=== PATIENT | male | born 1985 | race Caucasian/White ===

== ENCOUNTER 2018-09-20 18:36 | Emergency (ER) | payer MEDICARE, MEDICAID ==
[~2018-09-20] VITALS: Ht 188 cm; Wt 225.8 kg
[~2018-09-20 18:36] MED LIST: ASEN10TA SL; BACL20TA PO; CETI10CA PO; CHOL10002 PO; FLO0.4C PO; HYDR-3964 PO; LACT1CAP73 PO; LEVO100T PO; MAGN500C16 PO; OMEP20CA10 PO; SERT100T PO; TEST5GEL2 TP; TOP100T PO
[2018-09-20 19:03] LABS: COLOR,URINE YELLOW (Yellow); GLUCOSE, URINE NEGATIVE (Neg); KETONES,URINE NEGATIVE (Neg); LEUKOCYTE ESTERASE ,URINE TRACE (Neg); NITRITES, URINE NEGATIVE (Neg); OCCULT BLOOD,URINE NEGATIVE (Neg); PH,URINE 5.5 (4.8-8.0); PROTEIN,URINE NEGATIVE (Neg); UROBILINOGEN,URINE 0.2 E.U/dL (0.2-1.0)
[2018-09-20] MEDS ORDERED: ondansetron 4mg rapidly disintigrating tab PO ONE (19:05)
[2018-09-20 19:06] LABS: BASOPHILS % (AUTO) 0.2 % (0-1); EOSINOPHILS # (AUTO) 0.4 X10'3 (0-0.9); EOSINOPHILS % (AUTO) 2.5 % (0-6); HEMATOCRIT 43.5 % (42.0-52.0); HEMOGLOBIN 14.2 g/dl (14.0-17.9); LYMPHOCYTES # (AUTO) 3.6 X10'3 (1.1-4.8); LYMPHOCYTES % (AUTO) 24.4 % (21-51); MEAN CORPUSCULAR HEMOGLOBIN 26.1 PG (27.0-31.0); MEAN CORPUSCULAR HGB CONC 32.5 % (33.0-36.5); MEAN CORPUSCULAR VOLUME 80.2 FL (78-98); MEAN PLATELET VOLUME 6.7 FL (7.4-10.4); MONOCYTES # (AUTO) 0.8 X10'3 (0-0.9); MONOCYTES % (AUTO) 5.7 % (2-12); NEUTROPHILS # (AUTO) 9.9 X10'3 (1.8-7.7); NEUTROPHILS % (AUTO) 67.2 % (42-75); PLATELET COUNT 340 X10'3 (140-440); RED BLOOD COUNT 5.43 X10'6 (4.70-6.10); RED CELL DISTRIBUTION WIDTH 15.7 % (11.5-14.5); WHITE BLOOD COUNT 14.7 X10'3 (4.5-11.0)
[2018-09-20 19:09] LABS: UA COLLECTION TYPE CLN CATCH MIDSTREAM
[2018-09-20 19:10] LABS: CLARITY,URINE SLIGHTLY CLOUDY (Clear)
[2018-09-20 19:12] LABS: BACTERIA,URINE FEW /HPF (Neg); MUCUS STRANDS MODERATE /LPF (Neg); RBC,URINE NONE SEEN /HPF (0-2)
[2018-09-20 19:15] LABS: SQUAMOUS EPITHELIAL CELL,UR MANY /LPF (FEW)
[2018-09-20 19:31] LABS: ALANINE AMINOTRANSFERASE 35 U/L (12-78); ALBUMIN 3.6 G/DL (3.4-5.0); ALBUMIN/GLOBULIN RATIO 0.8 (1.1-1.5); ALKALINE PHOSPHATASE 94 IU/L (46-116); ANION GAP 13 (8-16); ASPARTATE AMINO TRANSFERASE 16 U/L (10-37); BILIRUBIN,TOTAL 0.3 MG/DL (0.1-1.0); BLOOD UREA NITROGEN 20 MG/DL (7-18); BUN/CREATININE RATIO 13.6 (5.4-32.0); CALCIUM 9.5 MG/DL (8.5-10.1); CHLORIDE 104 MMOL/L (99-107); CREATININE 1.47 MG/DL (0.60-1.10); GLUCOSE 94 MG/DL (70-104); POTASSIUM 3.9 MMOL/L (3.5-5.1); SODIUM 139 MMOL/L (135-145); TOTAL CARBON DIOXIDE 22.1 MMOL/L (24-32); TOTAL PROTEIN 8.3 G/DL (6.4-8.2); eGFR 55 ML/MIN
[2018-09-20] MEDS ORDERED: normal saline 1000ML IV soln IVB ONE (20:50)
[2018-09-20] MEDS ORDERED: ondansetron/PF 4mg/2ml inj IV ONE (20:50)
[2018-09-20] MEDS: HYDROmorphone inj. 0.5 MG/0.5 ML DISP.SYRIN IV PRN ×2 (21:20→22:18)
[2018-09-20] MEDS ORDERED: ONDA4TAB6 PO (21:39)
[2018-09-20] MEDS ORDERED: HYDR-3965 PO (21:39)
[2018-09-20] MEDS ORDERED: VAL5T PO (21:54)
[2018-09-20] MEDS ORDERED: BACL10TA PO (21:54)
--- NOTE | 2018-09-20 21:54 | NUR ---
Patient is with MD at this time, he was given Zofran, Dilaudid and Normal Saline. I will continue to monitor. His mother and caregiver are at the bedside.
[2018-09-20 22:43] VITALS: BP 129/66
== END 2018-09-20 22:47 | disposition home or self-care (01) ==
LOC: ER 18:37
DX: N39.0 Urinary tract infection, site not specified (principal); R10.9 Unspecified abdominal pain; F32.9 Major depressive disorder, single episode, unspecified; K21.9 Gastro-esophageal reflux disease without esophagitis; N18.9 Chronic kidney disease, unspecified; Z88.8 Allergy status to other drugs, medicaments and biological substances; Z87.440 Personal history of urinary (tract) infections
CPT/HCPCS: 36415; 80053; 81001; 85025; 96374; 96375; 96376; 99283; J1170; J2405; J7030

== ENCOUNTER 2019-08-27 15:07 | Emergency (ER) | payer MEDICARE, MEDICAID ==
[~2019-08-27] VITALS: Ht 185.4 cm; Wt 242.0 kg
[~2019-08-27 15:07] MED LIST changes: +BACL10TA PO; +OMEP-297 PO; -OMEP20CA10 PO; +ONDA4TAB6 PO
[2019-08-27 16:03] LABS: BASOPHILS # (AUTO) 0.1 X10'3 (0-0.2); BASOPHILS % (AUTO) 0.6 % (0-1); EOSINOPHILS # (AUTO) 0.1 X10'3 (0-0.9); EOSINOPHILS % (AUTO) 1.1 % (0-6); HEMATOCRIT 43.5 % (42.0-52.0); HEMOGLOBIN 14.4 g/dl (14.0-17.9); LYMPHOCYTES % (AUTO) 22.6 % (21-51); MEAN CORPUSCULAR HEMOGLOBIN 26.3 PG (27.0-31.0); MEAN CORPUSCULAR VOLUME 79.5 FL (78-98); MEAN PLATELET VOLUME 6.7 FL (7.4-10.4); MONOCYTES # (AUTO) 0.8 X10'3 (0-0.9); MONOCYTES % (AUTO) 6.1 % (2-12); NEUTROPHILS # (AUTO) 9.2 X10'3 (1.8-7.7); NEUTROPHILS % (AUTO) 69.6 % (42-75); PLATELET COUNT 306 X10'3 (140-440); RED BLOOD COUNT 5.47 X10'6 (4.70-6.10); RED CELL DISTRIBUTION WIDTH 16.6 % (11.5-14.5); WHITE BLOOD COUNT 13.2 X10'3 (4.5-11.0)
[2019-08-27 16:15] LABS: CLARITY,URINE CLEAR (Clear); COLOR,URINE YELLOW (Yellow); GLUCOSE, URINE NEGATIVE (Neg); KETONES,URINE NEGATIVE (Neg); LEUKOCYTE ESTERASE ,URINE NEGATIVE (Neg); NITRITES, URINE POSITIVE (Neg); OCCULT BLOOD,URINE NEGATIVE (Neg); PH,URINE 5.5 (4.8-8.0); PROTEIN,URINE NEGATIVE (Neg); UROBILINOGEN,URINE 0.2 E.U/dL (0.2-1.0)
[2019-08-27 16:17] LABS: ALANINE AMINOTRANSFERASE 52 U/L (12-78); ALBUMIN 3.5 G/DL (3.4-5.0); ALBUMIN/GLOBULIN RATIO 0.9 (1.1-1.5); ALKALINE PHOSPHATASE 90 IU/L (46-116); AMYLASE 32 U/L (25-115); ANION GAP 9 (8-16); ASPARTATE AMINO TRANSFERASE 22 U/L (10-37); BILIRUBIN,TOTAL 0.3 MG/DL (0.1-1.0); BLOOD UREA NITROGEN 23 MG/DL (7-18); BUN/CREATININE RATIO 16.1 (5.4-32.0); CHLORIDE 107 MMOL/L (99-107); CREATININE 1.43 MG/DL (0.60-1.10); GLUCOSE 108 MG/DL (70-104); LIPASE 146 U/L (73-393); POTASSIUM 4.1 MMOL/L (3.5-5.1); SODIUM 141 MMOL/L (135-145); TOTAL CARBON DIOXIDE 24.8 MMOL/L (24-32); TOTAL PROTEIN 7.5 G/DL (6.4-8.2); eGFR 56 ML/MIN
[2019-08-27 16:18] LABS: UA COLLECTION TYPE STRAIGHT CATH
[2019-08-27 16:22] LABS: BACTERIA,URINE 1+ /HPF (Neg); RBC,URINE 0-2 /HPF (0-2); SQUAMOUS EPITHELIAL CELL,UR FEW /LPF (FEW); WBC,URINE 0-4 /HPF (0-4)
[2019-08-27] MEDS ORDERED: normal saline 1000ML IV soln IVB ONE (16:25)
[2019-08-27] MEDS ORDERED: morphine 4 MG/ML inj SYRINge IV ONE (16:25)
[2019-08-27] MEDS ORDERED: famotidine/PF 10 mg/ml inj IV ONE (16:25)
[2019-08-27] MEDS ORDERED: ondansetron/PF 4mg/2ml inj IV ONE (16:25)
[2019-08-27] MEDS ORDERED: normal saline 1000ml 1,000 ML IV ONE (16:25)
[2019-08-27] MEDS ORDERED: HYDR-4353 PO (17:57)
[2019-08-27] MEDS ORDERED: ONDA4TAB6 PO (17:57)
[2019-08-27] MEDS ORDERED: CEFI400C PO (17:57)
[2019-08-27 18:18] VITALS: BP 130/71
== END 2019-08-27 18:36 | disposition home or self-care (01) ==
LOC: ER 15:08
DX: N39.0 Urinary tract infection, site not specified (principal); K21.9 Gastro-esophageal reflux disease without esophagitis; N18.9 Chronic kidney disease, unspecified; F32.9 Major depressive disorder, single episode, unspecified; Z88.6 Allergy status to analgesic agent; Z88.8 Allergy status to other drugs, medicaments and biological substances; Z79.899 Other long term (current) drug therapy
CPT/HCPCS: 36415; 80053; 81001; 82150; 83690; 85025; 87088; 93005; 96361; 96374; 96375; 99284; J2270; J2405; J3490; J7030

== ENCOUNTER 2021-05-14 11:19 | Inpatient (IN) | payer MEDICARE, MEDICAID ==
[~2021-05-14] VITALS: Ht 185.4 cm; Wt 255.0 kg
[~2021-05-14 11:19] MED LIST changes: +CEFI400C PO; -OMEP-297 PO; +OMEP20CA15 PO
[2021-05-14] MEDS ORDERED: acetaminophen 325mg tablet PO STA (11:33)
[2021-05-14] MEDS ORDERED: ALBUTEROL INHALER 1 PUFF/90 MCG INHALER IH PRN ×2 (11:35→14:40)
--- NOTE | 2021-05-14 11:52 | NUR ---
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 archana contreras by marc
[2021-05-14 12:02] LABS: ABG BASE EXCESS -2.3 mmol/L (-2.0-2.0); ABG HCO3 22.2 mmol/L (22.0-26.0); ABG OXYGEN SATURATION 96.9 % (94-97); ABG PCO2 (T) 37.5 mmHg (35.0-48.0); ABG PO2 (T) 91.6 mmHg (75.0-100.0); ALLEN'S TEST POSITIVE; FCOHb 0.9 % (0.0-3.9); FLOW 3 L/min; FMetHb 0.2 % (0.0-1.5); FO2Hb 95.8 % (94-97); TOTAL HEMOGLOBIN 14.7 G/dl (14.0-18.0)
[2021-05-14 12:11] LABS: D-DIMER 1.13 MG/L FEU (0-0.50)
[2021-05-14 12:12] LABS: BASOPHILS % (AUTO) 0.2 % (0-1); EOSINOPHILS % (AUTO) 0 % (0-6); HEMOGLOBIN 13.9 g/dl (14.0-17.9); LYMPHOCYTES % (AUTO) 20.2 % (21-51); MEAN CORPUSCULAR HEMOGLOBIN 26.4 PG (27.0-31.0); MEAN CORPUSCULAR HGB CONC 33.1 g/dL (33.0-36.5); MEAN CORPUSCULAR VOLUME 79.6 FL (78-98); MEAN PLATELET VOLUME 7.3 FL (7.4-10.4); MONOCYTES # (AUTO) 0.2 X10'3 (0-0.9); MONOCYTES % (AUTO) 4.7 % (2-12); NEUTROPHILS # (AUTO) 3.8 X10'3 (1.8-7.7); NEUTROPHILS % (AUTO) 74.9 % (42-75); PLATELET COUNT 151 X10'3 (140-440); RED BLOOD COUNT 5.28 X10'6 (4.70-6.10); RED CELL DISTRIBUTION WIDTH 15.8 % (11.5-14.5); WHITE BLOOD COUNT 5.1 X10'3 (4.5-11.0)
[2021-05-14 12:17] LABS: ALANINE AMINOTRANSFERASE 54 U/L (12-78); ALBUMIN 2.6 G/DL (3.4-5.0); ALBUMIN/GLOBULIN RATIO 0.6 (1.1-1.5); ALKALINE PHOSPHATASE 84 IU/L (46-116); ANION GAP 14 (8-16); ASPARTATE AMINO TRANSFERASE 47 U/L (10-37); BILIRUBIN,TOTAL 0.4 MG/DL (0.1-1.0); BLOOD UREA NITROGEN 12 MG/DL (7-18); BUN/CREATININE RATIO 7.8 (5.4-32.0); C-REACTIVE PROTEIN 13.18 MG/DL (0.0-0.5); CALCIUM 7.9 MG/DL (8.5-10.1); CHLORIDE 104 MMOL/L (99-107); CREATININE 1.54 MG/DL (0.60-1.10); GLUCOSE 262 MG/DL (70-104); POTASSIUM 4.1 MMOL/L (3.5-5.1); SODIUM 139 MMOL/L (135-145); TOTAL CARBON DIOXIDE 20.9 MMOL/L (24-32); TOTAL PROTEIN 7.1 G/DL (6.4-8.2); eGFR 51 ML/MIN
[2021-05-14] MEDS ORDERED: iohexol 350MG/ML 100ml bottle IV ONE (12:48)
[2021-05-14 13:57] LABS: CLARITY,URINE CLOUDY (Clear); COLOR,URINE YELLOW (Yellow); GLUCOSE, URINE NEGATIVE (Neg); KETONES,URINE 40 mg/dl (Neg); LEUKOCYTE ESTERASE ,URINE NEGATIVE (Neg); NITRITES, URINE NEGATIVE (Neg); OCCULT BLOOD,URINE NEGATIVE (Neg); PH,URINE 5.5 (4.8-8.0); PROTEIN,URINE >=300 mg/dl (Neg); UROBILINOGEN,URINE 0.2 E.U/dL (0.2-1.0)
[2021-05-14 13:59] LABS: UA COLLECTION TYPE STRAIGHT CATH
[2021-05-14] MEDS ORDERED: CASIRIVIMAB/IMDEVIMAB inject. 10 ML in normal saline 100ml IV soln 100 ML IV ONE (14:00)
[2021-05-14 14:01] LABS: SQUAMOUS EPITHELIAL CELL,UR MODERATE /LPF (FEW)
[2021-05-14 14:02] LABS: BACTERIA,URINE FEW /HPF (Neg); RBC,URINE 0-2 /HPF (0-2); WBC,URINE 0-4 /HPF (0-4)
[2021-05-14 14:03] LABS: AMORPHOUS URATES 2+
[2021-05-14 14:05] LABS: MUCUS STRANDS FEW /LPF (Neg)
[2021-05-14] MEDS ORDERED: dexamethasone sod phosphate 10mg/ml inj IV STA (14:17)
[2021-05-14] MEDS ORDERED: REMDESIVIR INJ 200 MG in normal saline 100ml IV soln 60 ML IV ONE (14:20)
[2021-05-14] MEDS ORDERED: enoxaparin 100mg/ml syringe SUBCUT ONE (14:35)
[2021-05-14] MEDS ORDERED: CefTRIAXone 2gm/D5W 50ml BAG 50 ML IV ONE (14:35)
[2021-05-14] MEDS ORDERED: azithromycin/NS 500mg/250ml 250 ML IV ONE (14:35)
[2021-05-14] MEDS ORDERED: potassium Cl 20 mEq SR tablet PO PRN ×2 (14:40)
[2021-05-14] MEDS ORDERED: HYDROcodone/acetaminophen 5mg/325mg tablet PO PRN (14:40)
[2021-05-14] MEDS ORDERED: dextrose ORAL solution 15 GM/59 ML bottle PO PRN ×2 (14:40)
[2021-05-14] MEDS ORDERED: magnesium 2GM in 50ml NS 50 ML IV PRN (14:40)
[2021-05-14] MEDS ORDERED: MESSAGE TO PHARMACY PO ONE (14:40)
[2021-05-14] MEDS ORDERED: glucagon, human recombinant 1mg kit SUBCUT PRN (14:40)
[2021-05-14] MEDS ORDERED: dextrose 50%-water 50ml dispensing syringe IV PRN ×2 (14:40)
[2021-05-14] MEDS ORDERED: magnesium hydroxide 30ml (MOM) UD suspension PO PRN (14:40)
[2021-05-14] MEDS ORDERED: mag hydrox/Alum hydrox/simeth 30ml oral suspension PO PRN (14:40)
[2021-05-14] MEDS ORDERED: magnesium 4gm in 100ml NS 100 ML IV PRN (14:40)
[2021-05-14] MEDS ORDERED: potassium Cl 40MEQ/1/2NS 520ml 520 ML IV PRN ×2 (14:40)
[2021-05-14] MEDS ORDERED: ondansetron/PF 4mg/2ml inj IV PRN (14:40)
[2021-05-14] MEDS ORDERED: acetaminophen 325mg tablet PO PRN (14:40)
[2021-05-14 15:17] LABS: HEMOGLOBIN A1C 10.3 % (4.5-6.2)
[2021-05-14] MEDS: normal saline 1000ml 1,000 ML IV SCH (15:22)
[2021-05-14] MEDS ORDERED: ICOS1CAP2 PO (15:44)
[2021-05-14] MEDS ORDERED: LACT1CAP65 PO (15:44)
[2021-05-14] MEDS ORDERED: DOXY100T2 PO (15:44)
[2021-05-14] MEDS ORDERED: METF-436 PO (15:44)
[2021-05-14] MEDS ORDERED: PANT40TA54 PO (15:44)
[2021-05-14] MEDS ORDERED: MODA100T31 PO (15:44)
[2021-05-14] MEDS ORDERED: FLO0.4C PO (15:44)
[2021-05-14] MEDS ORDERED: TEST2.5G5 TOP (15:44)
[2021-05-14] MEDS ORDERED: TOP100T PO (15:44)
[2021-05-14] MEDS ORDERED: CETI10TA14 PO (15:44)
[2021-05-14] MEDS ORDERED: SERT-153 PO (15:44)
[2021-05-14] MEDS ORDERED: LEVO175T2 PO (15:44)
[2021-05-14] MEDS ORDERED: CHERRY FLEX PO (15:44)
[2021-05-14] MEDS ORDERED: MULT-1085 PO (15:44)
[2021-05-14] MEDS: ICOSAPENT ETHYL 1 GM PO SCH (20:00)
[2021-05-14] MEDS: K and/or MAG REPLACEMENT MC SCH (20:00)
[2021-05-14] MEDS ORDERED: dexamethasone inj 6 MG in normal saline 50ml IV soln 50 ML IV SCH (20:00)
[2021-05-14] MEDS: tamsulosin 0.4mg capsule PO SCH (20:57)
[2021-05-14] MEDS: docusate sod 100mg capsule PO SCH (20:57)
[2021-05-14] MEDS: enoxaparin 100mg/ml syringe SQ SCH (20:58)
[2021-05-14] MEDS: asenapine 5mg TAB.SUBL SL SCH (21:40)
[2021-05-14] MEDS: sertraline 50mg tablet PO SCH (21:41)
[2021-05-14] MEDS: insulin glargine (Lantus) pen - multi-dose SQ SCH (21:50)
[2021-05-15] MEDS: normal saline 1000ml 1,000 ML IV SCH ×2 (00:40→10:40)
--- NOTE | 2021-05-15 01:15 | NUR ---
PT PLACED ON PERSONAL CPAP, ATTEMPTED WITHOUT N/C AND DESATURATED TO 88%, PLACED BACK ON N/C. WILL ATTEMPT TO SLEEP WITHOUT MASK.
--- NOTE | 2021-05-15 01:30 | NUR ---
pt moved onto hospital bed.
[2021-05-15 02:06] LABS: BASOPHILS % (AUTO) 0.3 % (0-1); EOSINOPHILS % (AUTO) 0 % (0-6); HEMATOCRIT 40.8 % (42.0-52.0); HEMOGLOBIN 13.5 g/dl (14.0-17.9); LYMPHOCYTES # (AUTO) 0.9 X10'3 (1.1-4.8); LYMPHOCYTES % (AUTO) 16.4 % (21-51); MEAN CORPUSCULAR HEMOGLOBIN 25.8 PG (27.0-31.0); MEAN CORPUSCULAR VOLUME 78.2 FL (78-98); MEAN PLATELET VOLUME 7.2 FL (7.4-10.4); MONOCYTES # (AUTO) 0.2 X10'3 (0-0.9); NEUTROPHILS # (AUTO) 4.6 X10'3 (1.8-7.7); NEUTROPHILS % (AUTO) 80.3 % (42-75); PLATELET COUNT 179 X10'3 (140-440); RED BLOOD COUNT 5.21 X10'6 (4.70-6.10); RED CELL DISTRIBUTION WIDTH 15.6 % (11.5-14.5); WHITE BLOOD COUNT 5.8 X10'3 (4.5-11.0)
--- NOTE | 2021-05-15 02:10 | NUR ---
PT REQUESTS CPAP FOR SLEEP, PLACED ON OVER CANNULA, REPORTS IT IS COMFORTABLE AND HE FEELS HE CAN NOW SLEEP.
[2021-05-15 02:28] LABS: ALANINE AMINOTRANSFERASE 48 U/L (12-78); ALBUMIN 2.5 G/DL (3.4-5.0); ALBUMIN/GLOBULIN RATIO 0.5 (1.1-1.5); ALKALINE PHOSPHATASE 79 IU/L (46-116); ANION GAP 11 (8-16); ASPARTATE AMINO TRANSFERASE 49 U/L (10-37); BILIRUBIN,TOTAL 0.3 MG/DL (0.1-1.0); BLOOD UREA NITROGEN 12 MG/DL (7-18); C-REACTIVE PROTEIN 17.18 MG/DL (0.0-0.5); CHLORIDE 105 MMOL/L (99-107); GLUCOSE 262 MG/DL (70-104); MAGNESIUM 2.1 MG/DL (1.5-2.4); POTASSIUM 4.3 MMOL/L (3.5-5.1); SODIUM 139 MMOL/L (135-145); TOTAL CARBON DIOXIDE 23.2 MMOL/L (24-32); TOTAL PROTEIN 7.1 G/DL (6.4-8.2); eGFR 53 ML/MIN
[2021-05-15 02:45] LABS: D-DIMER 0.87 MG/L FEU (0-0.50)
--- NOTE | 2021-05-15 07:34 | NUR ---
RETURNED CALL TO ED FOR REPORT. ON HOLD. WILL ATTEMPT LATER
[2021-05-15] MEDS ORDERED: SERTRALINE HCL PO SCH (08:00)
[2021-05-15] MEDS: K and/or MAG REPLACEMENT MC SCH ×2 (08:00→21:05)
[2021-05-15] MEDS ORDERED: CHERRY FLEX PO SCH (08:00)
[2021-05-15] MEDS: ICOSAPENT ETHYL 1 GM PO SCH ×2 (08:00→21:04)
[2021-05-15] MEDS ORDERED: topiramate 100mg tablet PO SCH (08:00)
[2021-05-15] MEDS: pantoprazole 40mg Tablet.DR PO SCH (08:35)
[2021-05-15] MEDS: docusate sod 100mg capsule PO SCH ×2 (08:35→21:03)
[2021-05-15] MEDS: tamsulosin 0.4mg capsule PO SCH ×2 (08:35→21:03)
--- NOTE | 2021-05-15 08:35 | NUR ---
Called ED for report - pending JAY Jarrett. On hold again. Will try later
[2021-05-15] MEDS: topiramate 100mg tablet PO SCH (08:36)
[2021-05-15] MEDS: modafinil 100mg tablet PO SCH (08:36)
[2021-05-15] MEDS: cholecalciferol (vitamin D3) 1,000 unit (25mcg) tablet PO SCH (08:36)
[2021-05-15] MEDS: lactobacillus rhamnosus 10,000 MMU CELLS/CAPSULE PO SCH (08:36)
[2021-05-15] MEDS: multivitamins, therapeutics tablet PO SCH (08:37)
[2021-05-15] MEDS: enoxaparin 100mg/ml syringe SQ SCH ×2 (08:37→21:04)
[2021-05-15] MEDS: acetaminophen 325mg tablet PO PRN ×2 (09:31→15:28)
[2021-05-15] MEDS: cetirizine 10mg tablet PO SCH (09:31)
[2021-05-15] MEDS: levoTHYROXINE 175mcg tablet PO SCH (09:31)
[2021-05-15 10:30] VITALS: BP 101/55
[2021-05-15] MEDS: dexamethasone inj 10 MG in normal saline 50ml IV soln 50 ML IV SCH ×2 (11:22→21:05)
[2021-05-15] MEDS: REMDESIVIR 100 MG in NS 100ml IVPB IV SCH (12:43)
[2021-05-15] MEDS: insulin Lispro (HumaLOG) vial - multi-dose SQ SCH ×4 (15:35→21:41)
--- NOTE | 2021-05-15 17:58 | NUR ---
Pt has been stable and is able to make his needs known. He continues on 2L NC and will alternate with his home CPAP when needed. Temp increased but decreased with cooling measures and fan. He has repositioned himself throughout shift. Will continue to monitor until report given to NOC shift and NOC shift assumes care. Addendum: 05/15/21 at 1803 by Ana Ivey RN Pt is alternating on 5L NC not 2L and CPAP
[2021-05-15 18:00] VITALS: BP 112/58
--- NOTE | 2021-05-15 18:12 | NUR ---
Problems reprioritized. Patient report given, questions answered & plan of care reviewed with JAY Webb.
--- NOTE | 2021-05-15 18:45 | NUR ---
Patient in room ORTH[facility] 4020. I have received report from Ana THOMPSON and had the opportunity to ask questions and assume patient care.
[2021-05-15] MEDS: sertraline 50mg tablet PO SCH (21:03)
[2021-05-15] MEDS: asenapine 5mg TAB.SUBL SL SCH (21:04)
[2021-05-15] MEDS: insulin glargine (Lantus) pen - multi-dose SQ SCH (21:40)
[2021-05-15 22:00] VITALS: BP 122/70
[2021-05-16 02:00] VITALS: BP 123/85
--- NOTE | 2021-05-16 02:15 | NUR ---
Patient unable to void, bladder scanned 832ml. MD called and Matos ordered for retention placed. Patient tolerated procedure well.
[2021-05-16] MEDS: normal saline 1000ml 1,000 ML IV SCH ×3 (02:38→17:18)
--- NOTE | 2021-05-16 06:55 | NUR ---
Problems reprioritized. Patient report given, questions answered & plan of care reviewed with Claribel THOMPSON.
--- NOTE | 2021-05-16 06:55 | NUR ---
Patient in room ORTHO 4020. I have received report from Tracey THOMPSON and had the opportunity to ask questions and assume patient care.
[2021-05-16 07:00] VITALS: BP 130/64
[2021-05-16] MEDS: ICOSAPENT ETHYL 1 GM PO SCH ×2 (08:00→20:00)
[2021-05-16] MEDS: K and/or MAG REPLACEMENT MC SCH ×2 (08:00→20:00)
[2021-05-16 08:37] LABS: BASOPHILS % (AUTO) 0.2 % (0-1); EOSINOPHILS % (AUTO) 0 % (0-6); HEMATOCRIT 39.1 % (42.0-52.0); HEMOGLOBIN 12.7 g/dl (14.0-17.9); LYMPHOCYTES # (AUTO) 1.1 X10'3 (1.1-4.8); LYMPHOCYTES % (AUTO) 18.2 % (21-51); MEAN CORPUSCULAR HEMOGLOBIN 25.9 PG (27.0-31.0); MEAN CORPUSCULAR HGB CONC 32.5 g/dL (33.0-36.5); MEAN CORPUSCULAR VOLUME 79.6 FL (78-98); MEAN PLATELET VOLUME 7.6 FL (7.4-10.4); MONOCYTES # (AUTO) 0.3 X10'3 (0-0.9); NEUTROPHILS # (AUTO) 4.7 X10'3 (1.8-7.7); NEUTROPHILS % (AUTO) 76.6 % (42-75); PLATELET COUNT 221 X10'3 (140-440); RED BLOOD COUNT 4.92 X10'6 (4.70-6.10); RED CELL DISTRIBUTION WIDTH 15.7 % (11.5-14.5); WHITE BLOOD COUNT 6.1 X10'3 (4.5-11.0)
[2021-05-16] MEDS: REMDESIVIR 100 MG in NS 100ml IVPB IV SCH (08:56)
[2021-05-16] MEDS: docusate sod 100mg capsule PO SCH ×2 (08:58→19:32)
[2021-05-16] MEDS: lactobacillus rhamnosus 10,000 MMU CELLS/CAPSULE PO SCH (08:58)
[2021-05-16] MEDS: cholecalciferol (vitamin D3) 1,000 unit (25mcg) tablet PO SCH (08:58)
[2021-05-16] MEDS: modafinil 100mg tablet PO SCH (08:59)
[2021-05-16] MEDS: topiramate 100mg tablet PO SCH (08:59)
[2021-05-16] MEDS: enoxaparin 100mg/ml syringe SQ SCH ×2 (08:59→19:31)
[2021-05-16] MEDS: multivitamins, therapeutics tablet PO SCH (08:59)
[2021-05-16] MEDS: pantoprazole 40mg Tablet.DR PO SCH (08:59)
[2021-05-16] MEDS: tamsulosin 0.4mg capsule PO SCH ×2 (09:00→19:32)
[2021-05-16] MEDS: levoTHYROXINE 175mcg tablet PO SCH (09:00)
[2021-05-16] MEDS: cetirizine 10mg tablet PO SCH (09:00)
[2021-05-16] MEDS: insulin Lispro (HumaLOG) vial - multi-dose SQ SCH ×3 (09:13→19:27)
[2021-05-16 09:17] LABS: ALANINE AMINOTRANSFERASE 39 U/L (12-78); ALBUMIN 2.2 G/DL (3.4-5.0); ALBUMIN/GLOBULIN RATIO 0.5 (1.1-1.5); ALKALINE PHOSPHATASE 69 IU/L (46-116); ANION GAP 14 (8-16); ASPARTATE AMINO TRANSFERASE 42 U/L (10-37); BILIRUBIN,TOTAL 0.3 MG/DL (0.1-1.0); BLOOD UREA NITROGEN 14 MG/DL (7-18); C-REACTIVE PROTEIN 17.92 MG/DL (0.0-0.5); CALCIUM 8.2 MG/DL (8.5-10.1); CHLORIDE 109 MMOL/L (99-107); CREATININE 1.27 MG/DL (0.60-1.10); GLUCOSE 266 MG/DL (70-104); MAGNESIUM 2.6 MG/DL (1.5-2.4); POTASSIUM 4.6 MMOL/L (3.5-5.1); SODIUM 145 MMOL/L (135-145); TOTAL CARBON DIOXIDE 21.8 MMOL/L (24-32); TOTAL PROTEIN 6.5 G/DL (6.4-8.2); eGFR 64 ML/MIN
[2021-05-16 10:00] VITALS: BP 141/69
[2021-05-16] MEDS: dexamethasone inj 10 MG in normal saline 50ml IV soln 50 ML IV SCH ×2 (10:03→19:32)
[2021-05-16 10:17] LABS: D-DIMER 1.18 MG/L FEU (0-0.50)
--- NOTE | 2021-05-16 14:31 | NUR ---
DM Consult: Pt admit DX COVID-19 PNA, hypothyroidism, depression, and renal insufficiency on IV fluids. Hx developmental delay Klinefelter syndrome high functioning w/ caregiver and reported "pre-diabetes" however A1C 10.3 this admit. New T2DM DX this admit per EMR on glycemic protocol w/ Glu 220mg/dl this AM down from prior 293 mg/dl on dexamethasone. Unsure if pt aware of new DM DX at this time or if appropriate for ed as has caregiver. RD d/w RN faxed written DM ed handout w/ RD contact information to floor for pt/caregiver. Noted pt has diarrhea at this time though also receiving routine colace; would benefit from holding bowel care if diarrhea persists and MD agreeable. PO 0-25% first two meals this admit on heart healthy/carb controlled diet not meeting needs; diarrhea possibly impacting PO intake. On 5L nasal cannula per EMR. MARY d/w RN regarding Ensure Enlive TIDWM if MD agreeable. CRP 17.92 up from 13.18 prior. Will continue to monitor for additional protein/kcal needs this admit. Rec: 1. continue carb controlled/heart healthy diet; encourage PO; IF poor PO persists consider liberalization to regular diet 2. Consider Ensure Enlive TIDWM if poor PO persists and MD agreeable 3. bowel care per rx; consider starting anti-diarrheal if diarrhea persists and MD agreeable 4. continue MVI and vitamin D3 per MD 5. scaled wt this admit; subsequent weekly wts Addendum: 05/16/21 at [address] Amended: Links added.
[2021-05-16 15:00] VITALS: BP 125/72
[2021-05-16] MEDS: HYDROcodone/acetaminophen 10/325mg tab PO PRN (17:18)
[2021-05-16] MEDS: asenapine 5mg TAB.SUBL SL SCH (21:52)
[2021-05-16] MEDS: sertraline 50mg tablet PO SCH (21:52)
[2021-05-16 22:00] VITALS: BP 131/74
[2021-05-16] MEDS: insulin glargine (Lantus) pen - multi-dose SQ SCH (22:00)
--- NOTE | 2021-05-16 23:58 | NUR ---
patient remained for a good part of day on cpap and o2 5L o2 sats 91-94%. seen by DR rush, all cares continue.up with PT in chair. order obtained for bariatric bed. patient moved to room 4017 comfortable on new bed. [place] x1 for abdominal pain with effect.
--- NOTE | 2021-05-17 00:03 | NUR ---
Problems reprioritized. Patient report given, questions answered & plan of care reviewed with Tessa THOMPSON.
--- NOTE | 2021-05-17 00:30 | NUR ---
Patient in room ORTH[facility] 4017. I have received report from JAY Sanford and had the opportunity to ask questions and assume patient care.
[2021-05-17 02:00] VITALS: BP 134/78
[2021-05-17] MEDS: normal saline 1000ml 1,000 ML IV SCH ×2 (03:44→15:31)
--- NOTE | 2021-05-17 06:34 | NUR ---
Problems reprioritized. Patient report given, questions answered & plan of care reviewed with JAY Maurer.
[2021-05-17] MEDS: tamsulosin 0.4mg capsule PO SCH ×2 (07:30→20:16)
[2021-05-17] MEDS: lactobacillus rhamnosus 10,000 MMU CELLS/CAPSULE PO SCH (07:30)
[2021-05-17] MEDS: levoTHYROXINE 175mcg tablet PO SCH (07:30)
[2021-05-17] MEDS: cetirizine 10mg tablet PO SCH (07:30)
[2021-05-17] MEDS: modafinil 100mg tablet PO SCH (07:30)
[2021-05-17] MEDS: docusate sod 100mg capsule PO SCH ×2 (07:31→20:16)
[2021-05-17] MEDS: dexamethasone inj 10 MG in normal saline 50ml IV soln 50 ML IV SCH ×2 (07:31→20:15)
[2021-05-17] MEDS: cholecalciferol (vitamin D3) 1,000 unit (25mcg) tablet PO SCH (07:31)
[2021-05-17] MEDS: enoxaparin 100mg/ml syringe SQ SCH ×2 (07:31→20:17)
[2021-05-17] MEDS: topiramate 100mg tablet PO SCH (07:31)
[2021-05-17] MEDS: multivitamins, therapeutics tablet PO SCH (07:31)
[2021-05-17] MEDS: pantoprazole 40mg Tablet.DR PO SCH (07:31)
[2021-05-17] MEDS: K and/or MAG REPLACEMENT MC SCH ×2 (07:33→20:00)
[2021-05-17] MEDS: ICOSAPENT ETHYL 1 GM PO SCH ×2 (07:33→20:00)
[2021-05-17 07:56] LABS: BASOPHILS % (AUTO) 0.5 % (0-1); EOSINOPHILS % (AUTO) 0 % (0-6); HEMATOCRIT 38.2 % (42.0-52.0); HEMOGLOBIN 12.6 g/dl (14.0-17.9); LYMPHOCYTES # (AUTO) 1.4 X10'3 (1.1-4.8); MEAN CORPUSCULAR HEMOGLOBIN 26.1 PG (27.0-31.0); MEAN CORPUSCULAR HGB CONC 33.1 g/dL (33.0-36.5); MEAN CORPUSCULAR VOLUME 79.1 FL (78-98); MEAN PLATELET VOLUME 7.6 FL (7.4-10.4); MONOCYTES # (AUTO) 0.4 X10'3 (0-0.9); MONOCYTES % (AUTO) 6.7 % (2-12); NEUTROPHILS # (AUTO) 4.2 X10'3 (1.8-7.7); NEUTROPHILS % (AUTO) 69.8 % (42-75); PLATELET COUNT 288 X10'3 (140-440); RED BLOOD COUNT 4.83 X10'6 (4.70-6.10); RED CELL DISTRIBUTION WIDTH 15.8 % (11.5-14.5)
[2021-05-17 08:06] LABS: D-DIMER 0.96 MG/L FEU (0-0.50)
[2021-05-17] MEDS: REMDESIVIR 100 MG in NS 100ml IVPB IV SCH (08:50)
[2021-05-17] MEDS: insulin Lispro (HumaLOG) vial - multi-dose SQ SCH ×3 (08:54→18:53)
[2021-05-17 09:03] LABS: ALANINE AMINOTRANSFERASE 41 U/L (12-78); ALBUMIN 2.2 G/DL (3.4-5.0); ALBUMIN/GLOBULIN RATIO 0.5 (1.1-1.5); ALKALINE PHOSPHATASE 77 IU/L (46-116); ANION GAP 12 (8-16); ASPARTATE AMINO TRANSFERASE 34 U/L (10-37); BILIRUBIN,TOTAL 0.3 MG/DL (0.1-1.0); BLOOD UREA NITROGEN 19 MG/DL (7-18); BUN/CREATININE RATIO 14.6 (5.4-32.0); C-REACTIVE PROTEIN 13.21 MG/DL (0.0-0.5); CALCIUM 8.6 MG/DL (8.5-10.1); CHLORIDE 109 MMOL/L (99-107); GLUCOSE 257 MG/DL (70-104); MAGNESIUM 2.4 MG/DL (1.5-2.4); POTASSIUM 4.2 MMOL/L (3.5-5.1); SODIUM 145 MMOL/L (135-145); TOTAL CARBON DIOXIDE 24.4 MMOL/L (24-32); TOTAL PROTEIN 6.8 G/DL (6.4-8.2); eGFR 62 ML/MIN
[2021-05-17 10:00] VITALS: BP 121/62
[2021-05-17] MEDS ORDERED: lactose-reduced food (Ensure Enlive) - 237ml bottle PO SCH (13:00)
--- NOTE | 2021-05-17 13:46 | NUR ---
Pt's bed not operating correctly. HOB wont go up. Call [facility] [phone]. Spoke with Kelly who states they will urgently come see pt to fix issue. Confirmation number = [id number]
[2021-05-17 14:00] VITALS: BP 144/72
[2021-05-17 18:00] VITALS: BP 153/84
--- NOTE | 2021-05-17 18:27 | NUR ---
Report given to oncoming RN. Addendum: 05/17/21 at 1843 by Grace Travis RN Oncoming JAY Webb.
--- NOTE | 2021-05-17 18:47 | NUR ---
Patient in room ORTH[facility] 4017. I have received report from Grace THOMPSON and had the opportunity to ask questions and assume patient care.
[2021-05-17] MEDS: sertraline 50mg tablet PO SCH (20:16)
[2021-05-17] MEDS: asenapine 5mg TAB.SUBL SL SCH (20:16)
[2021-05-17] MEDS: insulin glargine (Lantus) pen - multi-dose SQ SCH (21:43)
[2021-05-17 22:00] VITALS: BP_SYST 125; BP_SYST 153; BP_DIAS 81; BP_DIAS 84
[2021-05-18 02:00] VITALS: BP 129/81
[2021-05-18] MEDS: normal saline 1000ml 1,000 ML IV SCH ×3 (02:19→22:45)
[2021-05-18 06:00] VITALS: BP 129/79
--- NOTE | 2021-05-18 06:10 | NUR ---
received report from ilan hill
--- NOTE | 2021-05-18 06:17 | NUR ---
Problems reprioritized. Patient report given, questions answered & plan of care reviewed with Luci THOMPSON.
[2021-05-18 06:53] LABS: BASOPHILS % (AUTO) 0.6 % (0-1); EOSINOPHILS % (AUTO) 0.1 % (0-6); HEMATOCRIT 38.7 % (42.0-52.0); HEMOGLOBIN 12.8 g/dl (14.0-17.9); LYMPHOCYTES # (AUTO) 1.4 X10'3 (1.1-4.8); LYMPHOCYTES % (AUTO) 20.3 % (21-51); MEAN CORPUSCULAR HEMOGLOBIN 26.2 PG (27.0-31.0); MEAN CORPUSCULAR VOLUME 79.3 FL (78-98); MEAN PLATELET VOLUME 7.2 FL (7.4-10.4); MONOCYTES # (AUTO) 0.5 X10'3 (0-0.9); MONOCYTES % (AUTO) 7.1 % (2-12); NEUTROPHILS # (AUTO) 5.1 X10'3 (1.8-7.7); NEUTROPHILS % (AUTO) 71.9 % (42-75); PLATELET COUNT 344 X10'3 (140-440); RED BLOOD COUNT 4.89 X10'6 (4.70-6.10); RED CELL DISTRIBUTION WIDTH 15.6 % (11.5-14.5)
[2021-05-18 06:59] LABS: D-DIMER 0.91 MG/L FEU (0-0.50)
[2021-05-18 07:06] LABS: ALANINE AMINOTRANSFERASE 37 U/L (12-78); ALBUMIN 2.2 G/DL (3.4-5.0); ALBUMIN/GLOBULIN RATIO 0.5 (1.1-1.5); ALKALINE PHOSPHATASE 80 IU/L (46-116); ANION GAP 12 (8-16); ASPARTATE AMINO TRANSFERASE 32 U/L (10-37); BILIRUBIN,TOTAL 0.3 MG/DL (0.1-1.0); BLOOD UREA NITROGEN 17 MG/DL (7-18); BUN/CREATININE RATIO 13.4 (5.4-32.0); C-REACTIVE PROTEIN 8.36 MG/DL (0.0-0.5); CALCIUM 8.5 MG/DL (8.5-10.1); CHLORIDE 111 MMOL/L (99-107); CREATININE 1.27 MG/DL (0.60-1.10); GLUCOSE 221 MG/DL (70-104); MAGNESIUM 2.2 MG/DL (1.5-2.4); POTASSIUM 4.1 MMOL/L (3.5-5.1); SODIUM 146 MMOL/L (135-145); TOTAL CARBON DIOXIDE 22.8 MMOL/L (24-32); TOTAL PROTEIN 6.8 G/DL (6.4-8.2); eGFR 64 ML/MIN
[2021-05-18] MEDS: K and/or MAG REPLACEMENT MC SCH ×2 (07:28→20:00)
[2021-05-18] MEDS: ICOSAPENT ETHYL 1 GM PO SCH ×2 (07:34→20:00)
[2021-05-18] MEDS: cetirizine 10mg tablet PO SCH (07:39)
[2021-05-18] MEDS: REMDESIVIR 100 MG in NS 100ml IVPB IV SCH (07:39)
[2021-05-18] MEDS: levoTHYROXINE 175mcg tablet PO SCH (07:39)
[2021-05-18] MEDS: topiramate 100mg tablet PO SCH (07:39)
[2021-05-18] MEDS: tamsulosin 0.4mg capsule PO SCH ×2 (07:39→21:04)
[2021-05-18] MEDS: modafinil 100mg tablet PO SCH (07:39)
[2021-05-18] MEDS: multivitamins, therapeutics tablet PO SCH (07:39)
[2021-05-18] MEDS: cholecalciferol (vitamin D3) 1,000 unit (25mcg) tablet PO SCH (07:39)
[2021-05-18] MEDS: pantoprazole 40mg Tablet.DR PO SCH (07:39)
[2021-05-18] MEDS: docusate sod 100mg capsule PO SCH ×3 (07:39→21:04)
[2021-05-18] MEDS: lactobacillus rhamnosus 10,000 MMU CELLS/CAPSULE PO SCH (07:40)
[2021-05-18] MEDS: enoxaparin 100mg/ml syringe SQ SCH ×2 (07:40→21:04)
[2021-05-18] MEDS: dexamethasone inj 10 MG in normal saline 50ml IV soln 50 ML IV SCH ×2 (08:00→22:42)
[2021-05-18] MEDS: insulin Lispro (HumaLOG) vial - multi-dose SQ SCH ×3 (08:55→19:10)
[2021-05-18 10:00] VITALS: BP 101/77
[2021-05-18] MEDS: HYDROcodone/acetaminophen 10/325mg tab PO PRN ×2 (12:35→17:08)
--- NOTE | 2021-05-18 18:25 | NUR ---
gave report to ilan gomez
[2021-05-18 18:30] VITALS: BP 114/84
[2021-05-18] MEDS: sertraline 50mg tablet PO SCH (21:04)
[2021-05-18] MEDS: asenapine 5mg TAB.SUBL SL SCH (21:04)
[2021-05-18] MEDS: insulin glargine (Lantus) pen - multi-dose SQ SCH (21:10)
[2021-05-18 22:00] VITALS: BP 119/77
[2021-05-19 02:08] VITALS: BP 134/87
[2021-05-19 06:00] VITALS: BP 145/90
--- NOTE | 2021-05-19 06:29 | NUR ---
Problems reprioritized. Patient report given, questions answered & plan of care reviewed with JAY NICHOLS.
--- NOTE | 2021-05-19 06:58 | NUR ---
Patient in room [facility]TH[facility] 4017. I have received report from JAY TONEY and had the opportunity to ask questions and assume patient care.
[2021-05-19 07:23] LABS: BASOPHILS % (AUTO) 0.2 % (0-1); EOSINOPHILS % (AUTO) 0.2 % (0-6); HEMATOCRIT 39.4 % (42.0-52.0); HEMOGLOBIN 12.8 g/dl (14.0-17.9); LYMPHOCYTES # (AUTO) 1.2 X10'3 (1.1-4.8); LYMPHOCYTES % (AUTO) 16.2 % (21-51); MEAN CORPUSCULAR HEMOGLOBIN 26.2 PG (27.0-31.0); MEAN CORPUSCULAR HGB CONC 32.6 g/dL (33.0-36.5); MEAN CORPUSCULAR VOLUME 80.4 FL (78-98); MEAN PLATELET VOLUME 6.8 FL (7.4-10.4); MONOCYTES # (AUTO) 0.5 X10'3 (0-0.9); MONOCYTES % (AUTO) 6.8 % (2-12); NEUTROPHILS # (AUTO) 5.6 X10'3 (1.8-7.7); NEUTROPHILS % (AUTO) 76.6 % (42-75); PLATELET COUNT 389 X10'3 (140-440); RED CELL DISTRIBUTION WIDTH 15.6 % (11.5-14.5); WHITE BLOOD COUNT 7.3 X10'3 (4.5-11.0)
[2021-05-19 07:28] LABS: D-DIMER 1.13 MG/L FEU (0-0.50)
[2021-05-19 07:30] LABS: ALANINE AMINOTRANSFERASE 39 U/L (12-78); ALBUMIN 2.1 G/DL (3.4-5.0); ALBUMIN/GLOBULIN RATIO 0.5 (1.1-1.5); ALKALINE PHOSPHATASE 80 IU/L (46-116); ANION GAP 11 (8-16); ASPARTATE AMINO TRANSFERASE 30 U/L (10-37); BILIRUBIN,TOTAL 0.3 MG/DL (0.1-1.0); BLOOD UREA NITROGEN 17 MG/DL (7-18); BUN/CREATININE RATIO 13.9 (5.4-32.0); C-REACTIVE PROTEIN 6.26 MG/DL (0.0-0.5); CALCIUM 8.4 MG/DL (8.5-10.1); CHLORIDE 111 MMOL/L (99-107); CREATININE 1.22 MG/DL (0.60-1.10); GLUCOSE 238 MG/DL (70-104); MAGNESIUM 2.2 MG/DL (1.5-2.4); POTASSIUM 4.3 MMOL/L (3.5-5.1); SODIUM 145 MMOL/L (135-145); TOTAL CARBON DIOXIDE 23.3 MMOL/L (24-32); TOTAL PROTEIN 6.6 G/DL (6.4-8.2); eGFR 67 ML/MIN
[2021-05-19] MEDS: K and/or MAG REPLACEMENT MC SCH ×2 (08:00→20:00)
[2021-05-19] MEDS: ICOSAPENT ETHYL 1 GM PO SCH ×2 (08:00→20:00)
[2021-05-19] MEDS: docusate sod 100mg capsule PO SCH ×2 (08:00→20:00)
[2021-05-19 08:18] LABS: ANISOCYTOSIS 1+; MICROCYTOSIS FEW; PLATELET ESTIMATE NORMAL; POLYCHROMASIA 1+; TOTAL CELLS COUNTED 100
[2021-05-19] MEDS: insulin Lispro (HumaLOG) vial - multi-dose SQ SCH ×4 (09:52→22:46)
[2021-05-19 10:00] VITALS: BP 139/91
[2021-05-19] MEDS: dexamethasone inj 10 MG in normal saline 50ml IV soln 50 ML IV SCH ×2 (10:06→19:57)
[2021-05-19] MEDS: enoxaparin 100mg/ml syringe SQ SCH ×2 (10:09→19:58)
[2021-05-19] MEDS: tamsulosin 0.4mg capsule PO SCH ×2 (10:11→20:16)
[2021-05-19] MEDS: lactobacillus rhamnosus 10,000 MMU CELLS/CAPSULE PO SCH (10:11)
[2021-05-19] MEDS: multivitamins, therapeutics tablet PO SCH (10:12)
[2021-05-19] MEDS: modafinil 100mg tablet PO SCH (10:12)
[2021-05-19] MEDS: pantoprazole 40mg Tablet.DR PO SCH (10:12)
[2021-05-19] MEDS: cholecalciferol (vitamin D3) 1,000 unit (25mcg) tablet PO SCH (10:13)
[2021-05-19] MEDS: topiramate 100mg tablet PO SCH (10:13)
[2021-05-19] MEDS: cetirizine 10mg tablet PO SCH (10:14)
[2021-05-19] MEDS: levoTHYROXINE 175mcg tablet PO SCH (10:20)
[2021-05-19] MEDS: normal saline 1000ml 1,000 ML IV SCH ×3 (11:48→22:58)
[2021-05-19 14:00] VITALS: BP 143/81
--- NOTE | 2021-05-19 18:35 | NUR ---
Problems reprioritized. Patient report given, questions answered & plan of care reviewed with JAY VILLALOBOS.
[2021-05-19] MEDS: sertraline 50mg tablet PO SCH (20:16)
[2021-05-19] MEDS: asenapine 5mg TAB.SUBL SL SCH (20:17)
[2021-05-19] MEDS: insulin glargine (Lantus) pen - multi-dose SQ SCH (22:44)
[2021-05-20 01:00] VITALS: BP 148/82
[2021-05-20] MEDS: HYDROcodone/acetaminophen 10/325mg tab PO PRN ×2 (01:08→15:29)
[2021-05-20 06:00] VITALS: BP 130/75
--- NOTE | 2021-05-20 06:39 | NUR ---
Patient in room [facility]TH[facility] 4017. I have received report from JAY VILLAOLBOS and had the opportunity to ask questions and assume patient care.
[2021-05-20] MEDS: dexamethasone inj 10 MG in normal saline 50ml IV soln 50 ML IV SCH ×2 (07:24→19:39)
[2021-05-20] MEDS: levoTHYROXINE 175mcg tablet PO SCH (07:27)
[2021-05-20] MEDS: lactobacillus rhamnosus 10,000 MMU CELLS/CAPSULE PO SCH (07:28)
[2021-05-20] MEDS: modafinil 100mg tablet PO SCH (07:31)
[2021-05-20] MEDS: tamsulosin 0.4mg capsule PO SCH ×2 (07:31→19:44)
[2021-05-20] MEDS: multivitamins, therapeutics tablet PO SCH (07:31)
[2021-05-20] MEDS: cetirizine 10mg tablet PO SCH (07:31)
[2021-05-20] MEDS: pantoprazole 40mg Tablet.DR PO SCH (07:31)
[2021-05-20] MEDS: cholecalciferol (vitamin D3) 1,000 unit (25mcg) tablet PO SCH (07:32)
[2021-05-20] MEDS: topiramate 100mg tablet PO SCH (07:33)
[2021-05-20] MEDS: docusate sod 100mg capsule PO SCH ×2 (07:34→19:43)
[2021-05-20] MEDS: ICOSAPENT ETHYL 1 GM PO SCH ×2 (07:34→20:00)
[2021-05-20] MEDS: enoxaparin 100mg/ml syringe SQ SCH ×2 (07:35→19:36)
[2021-05-20] MEDS: K and/or MAG REPLACEMENT MC SCH ×2 (08:00→20:00)
[2021-05-20 10:00] VITALS: BP 150/78
[2021-05-20] MEDS: normal saline 1000ml 1,000 ML IV SCH ×2 (11:34→20:40)
[2021-05-20 14:00] VITALS: BP 136/81
--- NOTE | 2021-05-20 14:02 | NUR ---
Reassessment: Pt PO remains poor 0-25% avg carb controlled/heart healthy diet not meeting needs. Dietary reports pt frequently requesting conflicting food preferences. MARY d/w RN regarding Ensure Enlive ONS TIDWM as prior RD recommended ONS not verified by MD in EMR in addition to liberalization to regular diet given poor PO hx if MD agreeable. Noted pt AOx3 this AM; RN reports pt is appropriate to talk to. RD TC w/ pt regarding food preferences and menu selections. Pt reports myriad food preferences following Mediterranean diet at home but would often provide conflicting foods list for both food he likes and dislikes. RD reviewed meal options for lunch and dinner today. Dietary signal technician to call pt daily for meal preferences to optimize intake. Pt is agreeable to ensure enlive TIDWM once verified in EMR. RD provided verbal education on importance of protein given DX this admit and encouraged PO intake meals. LBM 05/19. Will continue to monitor for additional protein/kcal needs this admit. Rec: 1. liberalize to regular diet given poor PO hx; encourage PO 2. Consider Ensure Enlive TIDWM; encourage PO 3. bowel care per rx 4. continue MVI and vitamin D3 per MD 5. scaled wt this admit; subsequent weekly wts Addendum: 05/20/21 at [address] Amended: Links added.
[2021-05-20] MEDS: insulin Lispro (HumaLOG) vial - multi-dose SQ SCH ×2 (15:00→19:30)
[2021-05-20 18:00] VITALS: BP 135/83
[2021-05-20] MEDS: lactose-reduced food (Ensure Enlive) - 237ml bottle PO SCH (18:00)
--- NOTE | 2021-05-20 18:36 | NUR ---
Problems reprioritized. Patient report given, questions answered & plan of care reviewed with JAY TONEY.
[2021-05-20] MEDS: sertraline 50mg tablet PO SCH (19:44)
[2021-05-20] MEDS: asenapine 5mg TAB.SUBL SL SCH (19:44)
[2021-05-20] MEDS: insulin glargine (Lantus) pen - multi-dose SQ SCH (21:39)
[2021-05-20 22:00] VITALS: BP 135/71
[2021-05-21 02:00] VITALS: BP 145/76
[2021-05-21] MEDS: normal saline 1000ml 1,000 ML IV SCH ×2 (04:58→16:40)
--- NOTE | 2021-05-21 06:23 | NUR ---
Problems reprioritized. Patient report given, questions answered & plan of care reviewed with JAY GIBBS.
--- NOTE | 2021-05-21 06:24 | NUR ---
Patient in room ORTH[facility] 4017. I have received report from Michelle THOMPSON and had the opportunity to ask questions and assume patient care.
[2021-05-21 06:53] VITALS: BP 140/78
[2021-05-21] MEDS: tamsulosin 0.4mg capsule PO SCH (07:08)
[2021-05-21] MEDS: cholecalciferol (vitamin D3) 1,000 unit (25mcg) tablet PO SCH (07:08)
[2021-05-21] MEDS: docusate sod 100mg capsule PO SCH (07:08)
[2021-05-21] MEDS: levoTHYROXINE 175mcg tablet PO SCH (07:08)
[2021-05-21] MEDS: multivitamins, therapeutics tablet PO SCH (07:08)
[2021-05-21] MEDS: enoxaparin 100mg/ml syringe SQ SCH (07:08)
[2021-05-21] MEDS: pantoprazole 40mg Tablet.DR PO SCH (07:08)
[2021-05-21] MEDS: topiramate 100mg tablet PO SCH (07:09)
[2021-05-21] MEDS: cetirizine 10mg tablet PO SCH (07:09)
[2021-05-21] MEDS: modafinil 100mg tablet PO SCH (07:09)
[2021-05-21] MEDS: lactobacillus rhamnosus 10,000 MMU CELLS/CAPSULE PO SCH (07:09)
[2021-05-21] MEDS: HYDROcodone/acetaminophen 10/325mg tab PO PRN ×2 (07:41→12:52)
[2021-05-21] MEDS: lactose-reduced food (Ensure Enlive) - 237ml bottle PO SCH ×2 (08:00→13:07)
[2021-05-21] MEDS ORDERED: testosterone 5gm gel packet TD SCH (08:00)
[2021-05-21] MEDS: ICOSAPENT ETHYL 1 GM PO SCH (08:00)
[2021-05-21] MEDS ORDERED: TESTOSTERONE TOP SCH (08:00)
[2021-05-21] MEDS: K and/or MAG REPLACEMENT MC SCH (08:00)
[2021-05-21 08:55] LABS: C-REACTIVE PROTEIN 2.18 MG/DL (0.0-0.5); MAGNESIUM 2.1 MG/DL (1.5-2.4)
[2021-05-21 09:04] LABS: D-DIMER 1.32 MG/L FEU (0-0.50)
[2021-05-21] MEDS: dexamethasone inj 10 MG in normal saline 50ml IV soln 50 ML IV SCH (09:30)
[2021-05-21 09:34] LABS: BASOPHILS # (AUTO) 0.1 X10'3 (0-0.2); BASOPHILS % (AUTO) 0.9 % (0-1); EOSINOPHILS # (AUTO) 0.2 X10'3 (0-0.9); EOSINOPHILS % (AUTO) 2.3 % (0-6); HEMATOCRIT 41.5 % (42.0-52.0); HEMOGLOBIN 13.1 g/dl (14.0-17.9); LYMPHOCYTES # (AUTO) 2.6 X10'3 (1.1-4.8); LYMPHOCYTES % (AUTO) 29.9 % (21-51); MEAN CORPUSCULAR HEMOGLOBIN 25.6 PG (27.0-31.0); MEAN CORPUSCULAR HGB CONC 31.7 g/dL (33.0-36.5); MEAN PLATELET VOLUME 7.2 FL (7.4-10.4); MONOCYTES # (AUTO) 0.7 X10'3 (0-0.9); MONOCYTES % (AUTO) 7.6 % (2-12); NEUTROPHILS # (AUTO) 5.2 X10'3 (1.8-7.7); NEUTROPHILS % (AUTO) 59.3 % (42-75); PLATELET COUNT 426 X10'3 (140-440); RED BLOOD COUNT 5.12 X10'6 (4.70-6.10); RED CELL DISTRIBUTION WIDTH 15.9 % (11.5-14.5); WHITE BLOOD COUNT 8.8 X10'3 (4.5-11.0)
[2021-05-21 09:38] LABS: ALANINE AMINOTRANSFERASE 52 U/L (12-78); ALBUMIN 2.1 G/DL (3.4-5.0); ALBUMIN/GLOBULIN RATIO 0.5 (1.1-1.5); ALKALINE PHOSPHATASE 78 IU/L (46-116); ANION GAP 12 (8-16); ASPARTATE AMINO TRANSFERASE 56 U/L (10-37); BILIRUBIN,TOTAL 0.3 MG/DL (0.1-1.0); BLOOD UREA NITROGEN 18 MG/DL (7-18); BUN/CREATININE RATIO 15.5 (5.4-32.0); CALCIUM 8.2 MG/DL (8.5-10.1); CHLORIDE 109 MMOL/L (99-107); CREATININE 1.16 MG/DL (0.60-1.10); GLUCOSE 127 MG/DL (70-104); PHOSPHORUS 4.2 MG/DL (2.3-4.5); POTASSIUM 3.7 MMOL/L (3.5-5.1); SODIUM 144 MMOL/L (135-145); TOTAL CARBON DIOXIDE 22.9 MMOL/L (24-32); TOTAL PROTEIN 6.3 G/DL (6.4-8.2); eGFR 71 ML/MIN
[2021-05-21] MEDS: insulin Lispro (HumaLOG) vial - multi-dose SQ SCH ×2 (09:55→13:44)
--- NOTE | 2021-05-21 10:49 | NUR ---
Patient had expiratory wheezing on my assessment this morning. Helped to use albuterol inhaler and insentive spirometer.
[2021-05-21 12:00] LABS: TOTAL CELLS COUNTED 100
[2021-05-21 12:04] LABS: PLATELET ESTIMATE NORMAL
[2021-05-21 12:05] LABS: ANISOCYTOSIS 1+; POLYCHROMASIA 1+
[2021-05-21 14:00] VITALS: BP 142/79
--- NOTE | 2021-05-21 14:00 | NUR ---
Patient requested tuna salad, corporate executive chef salad and egg salad for lunch today. When the food arrived he stated "where is the egg salad" told pt cafeteria may not have egg salad, patient also asked why he wasn't given his original lunch tray. Educated on the fact that he is only supposed to have 60 grams of carbs per meal per carb controlled diet. He then stated "well jona told me i could". Also informed him that this unfortunately is not something the drywall taper helper can control as we are the ones basing his insulin off of. Very visually upset with me and attempted to meet his needs. We were planning on giving him a bed bath and now he is refusing. Repositioned for comfort, patient ate all of his tuna and corporate executive chef salad.
--- NOTE | 2021-05-21 15:31 | NUR ---
O2 Sat at rest on room air:__85_% If below 89%: Recovery O2 Sat at rest on _4__LPM:__94_%:___% via (mask/nasal cannula, etc..) No further documentation is necessary. If O2 Sat did not drop below 89% on room air,ambulate patient on room air. O2 Sat while ambulating on room air:___% Recovery O2 Sat while ambulating on ___LPM:___% No further documentation is necessary. If patient does not drop below 89% while ambulating, he/she does not qualify for home O2.
--- NOTE | 2021-05-21 15:36 | NUR ---
PAGER ID: [phone] MESSAGE: [phone] Joaquin, has a sandoval for retention, already is on Flomax. Do you want him to go with the sandoval? has / caregivers at home. kristi [phone]
[2021-05-21] MEDS ORDERED: BENZ-16 PO (15:51)
[2021-05-21] MEDS ORDERED: DEXA1TAB PO (15:51)
[2021-05-21] MEDS ORDERED: RIVA20TA PO (15:51)
[2021-05-21] MEDS ORDERED: ALBU8.5H17 INH (15:51)
--- NOTE | 2021-05-21 18:08 | NUR ---
Patient discharged to home, gave instructions to patient and his mother. Both verbalized understanding. 20 gauge piv removed from right arm cannula intact, no complications. Discharged to private vehicle with no complications. Radha to follow up at home regarding home oxygen.
== END 2021-05-21 18:30 | disposition home health service (06) | DRG 177 ==
LOC: ER 11:20 → ED HOLD 14:43 → ORTHO 4S 05-15 09:05
PROVIDERS: ADMIT Family Medicine; ATTEND Family Medicine
PROC: XW033E5 Introduction of Remdesivir Anti-infective into Peripheral Vein, Percutaneous Approach, New Technology Group 5 (ICD-10-PCS; principal; 2021-05-14)
PROC: 5A09357 Assistance with Respiratory Ventilation, Less than 24 Consecutive Hours, Continuous Positive Airway Pressure (ICD-10-PCS; 2021-05-19)
PROC: 5A09357 Assistance with Respiratory Ventilation, Less than 24 Consecutive Hours, Continuous Positive Airway Pressure (ICD-10-PCS; 2021-05-20)
DX: U07.1 COVID-19 (principal); J96.01 Acute respiratory failure with hypoxia; J12.82 Pneumonia due to coronavirus disease 2019; Z68.45 Body mass index [BMI] 70 or greater, adult; N17.9 Acute kidney failure, unspecified; D68.69 Other thrombophilia; E66.2 Morbid (severe) obesity with alveolar hypoventilation; E03.9 Hypothyroidism, unspecified; K21.9 Gastro-esophageal reflux disease without esophagitis; E11.22 Type 2 diabetes mellitus with diabetic chronic kidney disease; F32.9 Major depressive disorder, single episode, unspecified; N18.9 Chronic kidney disease, unspecified; Q98.4 Klinefelter syndrome, unspecified; Z74.01 Bed confinement status; Z87.891 Personal history of nicotine dependence; Z99.3 Dependence on wheelchair; Z88.8 Allergy status to other drugs, medicaments and biological substances; Z87.440 Personal history of urinary (tract) infections; Z79.899 Other long term (current) drug therapy
CPT/HCPCS: 36415; 36600; 71045; 80053; 81001; 82803; 82948; 83036; 83735; 84100; 84145; 84443; 85007; 85018; 85025; 85379; 86140; 87635; 93005; 97110; 97161; 97530; 99291; C9803; G0378; J0456; J0696; J1100; J1650; J1815; J2405; J7030; Q9967

== ENCOUNTER 2021-10-13 13:06 | Outpatient (CLI) | payer MEDICARE, MEDICAID ==
[~2021-10-13 13:06] MED LIST changes: +ALBU8.5H17 INH; -BACL10TA PO; -BACL20TA PO; +BENZ-16 PO; -CEFI400C PO; -CETI10CA PO; +CETI10TA14 PO; +CHERRY FLEX PO; +DEXA1TAB PO; -HYDR-3964 PO; +ICOS1CAP2 PO; +LACT1CAP65 PO; -LACT1CAP73 PO; -LEVO100T PO; +LEVO175T2 PO; -MAGN500C16 PO; +METF-436 PO; +MODA100T31 PO; +MULT-1085 PO; -OMEP20CA15 PO; -ONDA4TAB6 PO; +PANT40TA54 PO; +RIVA20TA PO; +SERT-153 PO; +TEST2.5G5 TOP
== END 2021-10-13 23:59 | disposition home or self-care (01) ==
LOC: RAD 13:06
PROVIDERS: ATTEND Nurse Practitioner Family
DX: M79.605 Pain in left leg (principal); R60.0 Localized edema; R06.02 Shortness of breath; R10.9 Unspecified abdominal pain
CPT/HCPCS: 76705; 93971

== ENCOUNTER 2021-12-18 12:21 | Emergency (ER) | payer MEDICARE, MEDICAID ==
[~2021-12-18] VITALS: Ht 185.4 cm; Wt 255.0 kg
[2021-12-18 12:31] VITALS: BP 134/98
[2021-12-18] MEDS ORDERED: metoclopramide 5 mg/ml inj IV ONE (13:45)
[2021-12-18] MEDS ORDERED: ringers solution, lacted 1,000 ML IV ONE (13:45)
[2021-12-18 14:04] LABS: BASOPHILS % (AUTO) 0.2 % (0-1); EOSINOPHILS # (AUTO) 0.1 X10'3 (0-0.9); EOSINOPHILS % (AUTO) 0.6 % (0-6); HEMATOCRIT 50.2 % (42.0-52.0); HEMOGLOBIN 16.4 g/dl (14.0-17.9); LYMPHOCYTES # (AUTO) 2.2 X10'3 (1.1-4.8); LYMPHOCYTES % (AUTO) 18.1 % (21-51); MEAN CORPUSCULAR HEMOGLOBIN 25.6 PG (27.0-31.0); MEAN CORPUSCULAR HGB CONC 32.6 g/dL (33.0-36.5); MEAN CORPUSCULAR VOLUME 78.6 FL (78-98); MEAN PLATELET VOLUME 6.8 FL (7.4-10.4); MONOCYTES # (AUTO) 0.5 X10'3 (0-0.9); MONOCYTES % (AUTO) 4.5 % (2-12); NEUTROPHILS # (AUTO) 9.2 X10'3 (1.8-7.7); NEUTROPHILS % (AUTO) 76.6 % (42-75); PLATELET COUNT 320 X10'3 (140-440); RED BLOOD COUNT 6.39 X10'6 (4.70-6.10); RED CELL DISTRIBUTION WIDTH 19.9 % (11.5-14.5)
[2021-12-18 14:22] LABS: ALANINE AMINOTRANSFERASE 37 U/L (12-78); ALBUMIN 3.3 G/DL (3.4-5.0); ALBUMIN/GLOBULIN RATIO 0.7 (1.1-1.5); ALKALINE PHOSPHATASE 91 IU/L (46-116); ANION GAP 11 (8-16); ASPARTATE AMINO TRANSFERASE 16 U/L (10-37); BILIRUBIN,TOTAL 0.3 MG/DL (0.1-1.0); BLOOD UREA NITROGEN 21 MG/DL (7-18); CALCIUM 8.6 MG/DL (8.5-10.1); CHLORIDE 105 MMOL/L (99-107); CREATININE 1.31 MG/DL (0.60-1.10); GLUCOSE 183 MG/DL (70-104); LIPASE 104 U/L (73-393); POTASSIUM 4.1 MMOL/L (3.5-5.1); SODIUM 138 MMOL/L (135-145); TOTAL CARBON DIOXIDE 21.9 MMOL/L (24-32); TOTAL PROTEIN 7.9 G/DL (6.4-8.2); eGFR 61 ML/MIN
[2021-12-18 14:45] LABS: ANISOCYTOSIS 2+; MICROCYTOSIS 1+; PLATELET ESTIMATE NORMAL
[2021-12-18 14:46] LABS: POLYCHROMASIA FEW
[2021-12-18] MEDS ORDERED: pantoprazole 40MG/NS 100ML BAG 100 ML IV ONE (15:30)
[2021-12-18] MEDS ORDERED: proCHLORperazine 10 MG/2 ml inj IV ONE (15:30)
[2021-12-18] MEDS ORDERED: famotidine/PF 10 mg/ml inj IV ONE (15:30)
[2021-12-18] MEDS ORDERED: PROM25SU9 RC (15:36)
[2021-12-18] MEDS ORDERED: FAMO-128 PO (15:36)
[2021-12-18] MEDS ORDERED: mag hydrox/Alum hydrox/simeth 30ml oral suspension PO ONE (15:40)
[2021-12-18] MEDS ORDERED: LIDOcaine Viscous 15ml cup MM ONE (15:40)
== END 2021-12-18 17:10 | disposition home or self-care (01) ==
LOC: ER 12:23
DX: R11.10 Vomiting, unspecified (principal); R10.84 Generalized abdominal pain; K21.9 Gastro-esophageal reflux disease without esophagitis; F32.A Depression, unspecified; N18.9 Chronic kidney disease, unspecified; Z87.440 Personal history of urinary (tract) infections; Z88.6 Allergy status to analgesic agent; Z88.8 Allergy status to other drugs, medicaments and biological substances; Z79.899 Other long term (current) drug therapy
CPT/HCPCS: 80053; 82948; 83690; 85008; 85025; 96361; 96374; 96375; 99284; C9113; J0780; J2765; J3490; J7120

== ENCOUNTER 2022-01-05 18:06 | Emergency (ER) | payer MEDICARE, MEDICAID ==
[~2022-01-05] VITALS: Ht 185.4 cm; Wt 255.4 kg
[~2022-01-05 18:06] MED LIST changes: +FAMO-128 PO; +PROM25SU9 RC
[2022-01-05 18:36] LABS: EOSINOPHILS # (AUTO) 0.2 X10'3 (0-0.9)
[2022-01-05 18:38] LABS: BASOPHILS # (AUTO) 0.1 X10'3 (0-0.2); BASOPHILS % (AUTO) 0.6 % (0-1); HEMATOCRIT 50.3 % (42.0-52.0); HEMOGLOBIN 16.1 g/dl (14.0-17.9); LYMPHOCYTES # (AUTO) 3.1 X10'3 (1.1-4.8); LYMPHOCYTES % (AUTO) 19.7 % (21-51); MEAN CORPUSCULAR HEMOGLOBIN 24.9 PG (27.0-31.0); MEAN CORPUSCULAR VOLUME 77.6 FL (78-98); MEAN PLATELET VOLUME 6.8 FL (7.4-10.4); MONOCYTES # (AUTO) 0.8 X10'3 (0-0.9); MONOCYTES % (AUTO) 5.2 % (2-12); NEUTROPHILS # (AUTO) 11.4 X10'3 (1.8-7.7); NEUTROPHILS % (AUTO) 73.5 % (42-75); PLATELET COUNT 307 X10'3 (140-440); RED BLOOD COUNT 6.48 X10'6 (4.70-6.10); RED CELL DISTRIBUTION WIDTH 18.1 % (11.5-14.5); WHITE BLOOD COUNT 15.5 X10'3 (4.5-11.0)
[2022-01-05 18:53] LABS: ALANINE AMINOTRANSFERASE 27 U/L (12-78); ALBUMIN 3.4 G/DL (3.4-5.0); ALBUMIN/GLOBULIN RATIO 0.8 (1.1-1.5); ALKALINE PHOSPHATASE 97 IU/L (46-116); ANION GAP 11 (8-16); ASPARTATE AMINO TRANSFERASE 11 U/L (10-37); BILIRUBIN,TOTAL 0.4 MG/DL (0.1-1.0); BLOOD UREA NITROGEN 20 MG/DL (7-18); BUN/CREATININE RATIO 14.9 (5.4-32.0); CHLORIDE 105 MMOL/L (99-107); CREATININE 1.34 MG/DL (0.60-1.10); GLUCOSE 111 MG/DL (70-104); POTASSIUM 3.7 MMOL/L (3.5-5.1); SODIUM 138 MMOL/L (135-145); TOTAL CARBON DIOXIDE 22.3 MMOL/L (24-32); TOTAL PROTEIN 7.8 G/DL (6.4-8.2); eGFR 60 ML/MIN
[2022-01-05 19:28] LABS: APTT 36 SECONDS (22-32)
[2022-01-05 23:55] VITALS: BP 120/88
== END 2022-01-05 23:57 | disposition home or self-care (01) ==
LOC: ER 18:07
DX: R07.89 Other chest pain (principal); I82.622 Acute embolism and thrombosis of deep veins of left upper extremity; F17.200 Nicotine dependence, unspecified, uncomplicated; G47.30 Sleep apnea, unspecified; K21.9 Gastro-esophageal reflux disease without esophagitis; E11.22 Type 2 diabetes mellitus with diabetic chronic kidney disease; N18.9 Chronic kidney disease, unspecified; R62.50 Unspecified lack of expected normal physiological development in childhood; M10.9 Gout, unspecified; Z87.440 Personal history of urinary (tract) infections; Z86.718 Personal history of other venous thrombosis and embolism; Z88.8 Allergy status to other drugs, medicaments and biological substances; Z79.899 Other long term (current) drug therapy
CPT/HCPCS: 36415; 71045; 71275; 80053; 83880; 84484; 85025; 85610; 85730; 93005; 93971; 99285

== ENCOUNTER 2022-04-06 12:29 | Outpatient (CLI) | payer MEDICARE, MEDICAID | END 2022-04-06 23:59 | disposition home or self-care (01) | LOC: VAS 12:29 | PROVIDERS: ATTEND Internal Medicine Cardiovascular Disease | DX: M79.602 Pain in left arm (principal); R60.0 Localized edema; Z86.718 Personal history of other venous thrombosis and embolism | CPT/HCPCS: 93971 ==

== ENCOUNTER 2022-04-16 17:41 | Emergency (ER) | payer MEDICARE, MEDICAID ==
[~2022-04-16] VITALS: Ht 185.4 cm; Wt 256.4 kg
[2022-04-16 18:03] VITALS: BP 167/90
== END 2022-04-16 20:04 | disposition home or self-care (01) ==
LOC: ER 17:42
DX: T16.2XXA Foreign body in left ear, initial encounter (principal); K21.9 Gastro-esophageal reflux disease without esophagitis; E13.22 Other specified diabetes mellitus with diabetic chronic kidney disease; N18.9 Chronic kidney disease, unspecified; F32.A Depression, unspecified; E07.9 Disorder of thyroid, unspecified; F17.200 Nicotine dependence, unspecified, uncomplicated; Z88.6 Allergy status to analgesic agent; Z79.899 Other long term (current) drug therapy; Z88.5 Allergy status to narcotic agent; Z79.84 Long term (current) use of oral hypoglycemic drugs; X58.XXXA Exposure to other specified factors, initial encounter; Y93.89 Activity, other specified; Y92.89 Other specified places as the place of occurrence of the external cause; Y99.8 Other external cause status
CPT/HCPCS: 69200; 99284

== ENCOUNTER 2022-04-17 02:04 | Emergency (ER) | payer MEDICARE, MEDICAID ==
[~2022-04-17] VITALS: Ht 185.4 cm; Wt 256.4 kg
--- NOTE | 2022-04-17 02:20 | NUR ---
PT AWAKE AND ALERT. IN ED FOR MULTIPLE COPLIANTS. CURRENTLY ANXOUS. ADVISE PT TO TAKE LONG DEEP BREATHS. PT ABLE TO UNDERSTAND.
[2022-04-17 03:07] LABS: BASOPHILS # (AUTO) 0.1 X10'3 (0-0.2); BASOPHILS % (AUTO) 0.4 % (0-1); EOSINOPHILS # (AUTO) 0.1 X10'3 (0-0.9); EOSINOPHILS % (AUTO) 0.8 % (0-6); HEMATOCRIT 46.6 % (42.0-52.0); HEMOGLOBIN 15.2 g/dl (14.0-17.9); LYMPHOCYTES % (AUTO) 22.1 % (21-51); MEAN CORPUSCULAR HEMOGLOBIN 26.1 PG (27.0-31.0); MEAN CORPUSCULAR HGB CONC 32.5 g/dL (33.0-36.5); MEAN CORPUSCULAR VOLUME 80.4 FL (78-98); MEAN PLATELET VOLUME 6.7 FL (7.4-10.4); MONOCYTES # (AUTO) 0.8 X10'3 (0-0.9); MONOCYTES % (AUTO) 6.2 % (2-12); NEUTROPHILS # (AUTO) 9.5 X10'3 (1.8-7.7); NEUTROPHILS % (AUTO) 70.5 % (42-75); PLATELET COUNT 305 X10'3 (140-440); RED CELL DISTRIBUTION WIDTH 16.8 % (11.5-14.5); WHITE BLOOD COUNT 13.5 X10'3 (4.5-11.0)
--- NOTE | 2022-04-17 03:07 | NUR ---
VENIPUNCTURE ON RIGHT HAND FOR BLOOD DRAW. LABS SENT
[2022-04-17 03:32] LABS: ALANINE AMINOTRANSFERASE 34 U/L (12-78); ALBUMIN 3.1 G/DL (3.4-5.0); ALBUMIN/GLOBULIN RATIO 0.8 (1.1-1.5); ALKALINE PHOSPHATASE 87 IU/L (46-116); ANION GAP 13 (8-16); ASPARTATE AMINO TRANSFERASE 13 U/L (10-37); BILIRUBIN,TOTAL 0.2 MG/DL (0.1-1.0); BLOOD UREA NITROGEN 20 MG/DL (7-18); BUN/CREATININE RATIO 11.7 (5.4-32.0); CALCIUM 8.6 MG/DL (8.5-10.1); CHLORIDE 110 MMOL/L (99-107); CREATININE 1.71 MG/DL (0.60-1.10); GLUCOSE 175 MG/DL (70-104); POTASSIUM 4.1 MMOL/L (3.5-5.1); SODIUM 145 MMOL/L (135-145); TOTAL CARBON DIOXIDE 22.4 MMOL/L (24-32); TOTAL PROTEIN 7.2 G/DL (6.4-8.2); eGFR 45 ML/MIN
[2022-04-17 04:19] VITALS: BP 144/79
== END 2022-04-17 04:24 | disposition home or self-care (01) ==
LOC: ER 02:05
DX: F41.9 Anxiety disorder, unspecified (principal); K21.9 Gastro-esophageal reflux disease without esophagitis; N18.9 Chronic kidney disease, unspecified; E11.22 Type 2 diabetes mellitus with diabetic chronic kidney disease; E03.9 Hypothyroidism, unspecified; Z88.6 Allergy status to analgesic agent; Z88.8 Allergy status to other drugs, medicaments and biological substances; Z87.891 Personal history of nicotine dependence
CPT/HCPCS: 80053; 84439; 84443; 85025; 99283

== ENCOUNTER 2022-08-20 19:21 | Emergency (ER) | payer MEDICARE, MEDICAID ==
[~2022-08-20] VITALS: Ht 185.4 cm; Wt 256.8 kg
[~2022-08-20 19:21] MED LIST changes: +ALBU6.7H14 INH; -ALBU8.5H17 INH; +APIX5TAB3 PO; +ASCO500C18 PO; -ASEN10TA SL; +ASEN10TA3 SL; +AZI25OT PO; +BACL20TA PO; -BENZ-16 PO; +CEFD300C3 PO; -CHERRY FLEX PO; -DEXA1TAB PO; +EMPA10TA PO; -FAMO-128 PO; -ICOS1CAP2 PO; +MAGN400C PO; -METF-436 PO; -MODA100T31 PO; -PROM25SU9 RC; -RIVA20TA PO; +SEMA14TA2 PO; -SERT-153 PO; -TEST5GEL2 TP
[2022-08-21] MEDS ORDERED: metroNIDAZOLE-Flagyl 500mg/NS 100 ML IV STA (01:09)
[2022-08-21] MEDS ORDERED: morphine 4 MG/ML inj SYRINge IV ONE (01:10)
[2022-08-21] MEDS ORDERED: acetaminophen 325mg tablet PO ONE (01:10)
[2022-08-21] MEDS ORDERED: ciprofloxacin lact 400MG/200ML 200 ML IV ONE (01:20)
[2022-08-21 01:40] LABS: BASOPHILS # (AUTO) 0.1 X10'3 (0-0.2); BASOPHILS % (AUTO) 0.4 % (0-1); EOSINOPHILS # (AUTO) 0.1 X10'3 (0-0.9); EOSINOPHILS % (AUTO) 0.4 % (0-6); HEMATOCRIT 46.7 % (42.0-52.0); HEMOGLOBIN 15.3 g/dl (14.0-17.9); LYMPHOCYTES # (AUTO) 3.5 X10'3 (1.1-4.8); LYMPHOCYTES % (AUTO) 22.9 % (21-51); MEAN CORPUSCULAR HEMOGLOBIN 26.6 PG (27.0-31.0); MEAN CORPUSCULAR HGB CONC 32.8 g/dL (33.0-36.5); MEAN CORPUSCULAR VOLUME 81.1 FL (78-98); MONOCYTES # (AUTO) 0.9 X10'3 (0-0.9); MONOCYTES % (AUTO) 5.7 % (2-12); NEUTROPHILS # (AUTO) 10.6 X10'3 (1.8-7.7); NEUTROPHILS % (AUTO) 70.6 % (42-75); PLATELET COUNT 285 X10'3 (140-440); RED BLOOD COUNT 5.75 X10'6 (4.70-6.10); RED CELL DISTRIBUTION WIDTH 16.7 % (11.5-14.5); WHITE BLOOD COUNT 15.1 X10'3 (4.5-11.0)
[2022-08-21 01:47] VITALS: BP 121/80
[2022-08-21 01:56] LABS: ALANINE AMINOTRANSFERASE 40 U/L (12-78); ALBUMIN 3.3 G/DL (3.4-5.0); ALBUMIN/GLOBULIN RATIO 0.8 (1.1-1.5); ALKALINE PHOSPHATASE 87 IU/L (46-116); ANION GAP 11 (8-16); ASPARTATE AMINO TRANSFERASE 15 U/L (10-37); BILIRUBIN,TOTAL 0.2 MG/DL (0.1-1.0); BLOOD UREA NITROGEN 27 MG/DL (7-18); BUN/CREATININE RATIO 21.1 (5.4-32.0); CALCIUM 9.3 MG/DL (8.5-10.1); CHLORIDE 108 MMOL/L (99-107); CREATININE 1.28 MG/DL (0.60-1.10); GLUCOSE 182 MG/DL (70-104); LIPASE 155 U/L (73-393); POTASSIUM 4.2 MMOL/L (3.5-5.1); SODIUM 141 MMOL/L (135-145); TOTAL CARBON DIOXIDE 21.7 MMOL/L (24-32); TOTAL PROTEIN 7.3 G/DL (6.4-8.2); eGFR 63 ML/MIN
[2022-08-21] MEDS ORDERED: cipro PO (02:10)
[2022-08-21] MEDS ORDERED: HYDR-3965 PO (02:10)
[2022-08-21] MEDS ORDERED: METR-159 PO (02:10)
[2022-08-21 02:24] LABS: CLARITY,URINE CLEAR (Clear); COLOR,URINE YELLOW (Yellow); GLUCOSE, URINE >=1000 mg/dl (Neg); KETONES,URINE NEGATIVE (Neg); LEUKOCYTE ESTERASE ,URINE NEGATIVE (Neg); NITRITES, URINE NEGATIVE (Neg); OCCULT BLOOD,URINE NEGATIVE (Neg); PROTEIN,URINE NEGATIVE (Neg); UROBILINOGEN,URINE 0.2 E.U/dL (0.2-1.0)
[2022-08-21 02:26] LABS: UA COLLECTION TYPE VOIDED
[2022-08-21 02:29] LABS: SQUAMOUS EPITHELIAL CELL,UR MODERATE /LPF (FEW)
[2022-08-21 02:30] LABS: WBC,URINE 0-4 /HPF (0-4)
[2022-08-21 02:32] LABS: BACTERIA,URINE NONE SEEN /HPF (Neg); RBC,URINE 0-2 /HPF (0-2)
[2022-08-21 02:36] LABS: YEAST FEW /HPF (NEGATIVE)
[2022-08-21] MEDS ORDERED: ondansetron/PF 4mg/2ml inj IV ONE (03:52)
[2022-08-21] MEDS ORDERED: ciprofloxacin lact 400MG/200ML 200 ML IV SCH (08:00)
== END 2022-08-21 04:13 | disposition home or self-care (01) ==
LOC: ER 19:21
DX: R10.9 Unspecified abdominal pain (principal); E66.8 Other obesity; K21.9 Gastro-esophageal reflux disease without esophagitis; E13.22 Other specified diabetes mellitus with diabetic chronic kidney disease; N18.9 Chronic kidney disease, unspecified; F31.9 Bipolar disorder, unspecified; Z88.6 Allergy status to analgesic agent; Z79.899 Other long term (current) drug therapy; Z88.5 Allergy status to narcotic agent
CPT/HCPCS: 36415; 80053; 81001; 83690; 83880; 84484; 85025; 85610; 87077; 87088; 87186; 96365; 96366; 96375; 99284; J0744; J2270; J2405; J3490; J7030; A4615

== ENCOUNTER 2022-12-30 23:28 | Emergency (ER) | payer MEDICARE, MEDICAID ==
[~2022-12-30] VITALS: Ht 185.4 cm; Wt 252.6 kg
[~2022-12-30 23:28] MED LIST changes: -ALBU6.7H14 INH; -ASCO500C18 PO; -AZI25OT PO; -EMPA10TA PO; +FLUC100T25 PO; +HYDR-3717 PO; -LACT1CAP65 PO; +LIDO700A32 TOP; +LOPE2CAP PO; -MAGN400C PO; -MULT-1085 PO; +ONDA4TAB12 PO; +PHEN-786 PO; -SEMA14TA2 PO; +TIRZ10PE SUBCUT
[2022-12-30 23:58] LABS: BASOPHILS # (AUTO) 0.1 X10'3 (0-0.2); BASOPHILS % (AUTO) 0.6 % (0-1); EOSINOPHILS # (AUTO) 0.2 X10'3 (0-0.9); EOSINOPHILS % (AUTO) 1.6 % (0-6); HEMATOCRIT 44.1 % (42.0-52.0); HEMOGLOBIN 14.6 g/dl (14.0-17.9); LYMPHOCYTES # (AUTO) 3.5 X10'3 (1.1-4.8); LYMPHOCYTES % (AUTO) 25.2 % (21-51); MEAN CORPUSCULAR HEMOGLOBIN 27.2 PG (27.0-31.0); MEAN CORPUSCULAR VOLUME 82.3 FL (78-98); MEAN PLATELET VOLUME 6.7 FL (7.4-10.4); MONOCYTES # (AUTO) 0.9 X10'3 (0-0.9); MONOCYTES % (AUTO) 6.7 % (2-12); NEUTROPHILS # (AUTO) 9.2 X10'3 (1.8-7.7); NEUTROPHILS % (AUTO) 65.9 % (42-75); PLATELET COUNT 298 X10'3 (140-440); RED BLOOD COUNT 5.36 X10'6 (4.70-6.10); RED CELL DISTRIBUTION WIDTH 16.2 % (11.5-14.5)
[2022-12-31 00:06] LABS: ALANINE AMINOTRANSFERASE 44 U/L (12-78); ALBUMIN 3.3 G/DL (3.4-5.0); ALBUMIN/GLOBULIN RATIO 0.8 (1.1-1.5); ALKALINE PHOSPHATASE 88 IU/L (46-116); ANION GAP 10 (8-16); ASPARTATE AMINO TRANSFERASE 20 U/L (10-37); BILIRUBIN,TOTAL 0.2 MG/DL (0.1-1.0); BLOOD UREA NITROGEN 18 MG/DL (7-18); BUN/CREATININE RATIO 12.6 (10.0-20.0); CALCIUM 9.2 MG/DL (8.5-10.1); CHLORIDE 108 MMOL/L (99-107); CREATININE 1.43 MG/DL (0.60-1.10); GLUCOSE 111 MG/DL (70-104); POTASSIUM 3.8 MMOL/L (3.5-5.1); SODIUM 143 MMOL/L (135-145); TOTAL CARBON DIOXIDE 24.9 MMOL/L (24-32); TOTAL PROTEIN 7.5 G/DL (6.4-8.2); eGFR 55 ML/MIN
[2022-12-31 03:28] VITALS: BP 137/96
== END 2022-12-31 04:25 | disposition home or self-care (01) ==
LOC: ER 23:29
DX: R07.9 Chest pain, unspecified (principal); F17.200 Nicotine dependence, unspecified, uncomplicated; K21.9 Gastro-esophageal reflux disease without esophagitis; E13.22 Other specified diabetes mellitus with diabetic chronic kidney disease; I12.9 Hypertensive chronic kidney disease with stage 1 through stage 4 chronic kidney disease, or unspecified chronic kidney disease; N18.9 Chronic kidney disease, unspecified; F31.9 Bipolar disorder, unspecified; E03.9 Hypothyroidism, unspecified; Z88.6 Allergy status to analgesic agent; Z79.899 Other long term (current) drug therapy; Z79.1 Long term (current) use of non-steroidal anti-inflammatories (NSAID); Z79.2 Long term (current) use of antibiotics
CPT/HCPCS: 36415; 71045; 80053; 83735; 83880; 84484; 85025; 93005; 99285

== ENCOUNTER 2023-05-17 18:04 | Emergency (ER) | payer MEDICARE, MEDICAID ==
[~2023-05-17] VITALS: Ht 185.4 cm; Wt 251.3 kg
[~2023-05-17 18:04] MED LIST changes: -CEFD300C3 PO
[2023-05-17 18:12] VITALS: BP 181/98; PULSE 89; RESP 18; TEMP 98; O2SAT 98
[2023-05-17 18:58] LABS: ALANINE AMINOTRANSFERASE 25 U/L (12-78); ALBUMIN 3.3 G/DL (3.4-5.0); ALBUMIN/GLOBULIN RATIO 0.7 (1.1-1.5); ALKALINE PHOSPHATASE 97 IU/L (46-116); ANION GAP 10 (8-16); ASPARTATE AMINO TRANSFERASE 7 U/L (10-37); BILIRUBIN,TOTAL 0.2 MG/DL (0.1-1.0); BLOOD UREA NITROGEN 22 MG/DL (7-18); BUN/CREATININE RATIO 16.8 (10.0-20.0); CALCIUM 9.5 MG/DL (8.5-10.1); CHLORIDE 107 MMOL/L (99-107); CREATININE 1.31 MG/DL (0.60-1.10); GLUCOSE 248 MG/DL (70-104); POTASSIUM 4.4 MMOL/L (3.5-5.1); SODIUM 137 MMOL/L (135-145); TOTAL CARBON DIOXIDE 20.2 MMOL/L (24-32); TOTAL PROTEIN 7.8 G/DL (6.4-8.2); eCRCL 86 ML/MIN; eGFR 61 ML/MIN
[2023-05-17 19:05] LABS: PRO BRAIN NATRIURETIC PEPTIDE 45 PG/ML (0-125)
[2023-05-17 19:06] LABS: HEMOGLOBIN 15.1 g/dl (14.0-17.9); MEAN PLATELET VOLUME 7.2 FL (7.4-10.4); RED CELL DISTRIBUTION WIDTH 16.1 % (11.5-14.5)
[2023-05-17 19:08] LABS: BASOPHILS % (AUTO) 0.3 % (0-1); EOSINOPHILS # (AUTO) 0.1 X10'3 (0-0.9); HEMATOCRIT 46.4 % (42.0-52.0); LYMPHOCYTES # (AUTO) 3.5 X10'3 (1.1-4.8); LYMPHOCYTES % (AUTO) 25.5 % (21-51); MEAN CORPUSCULAR HEMOGLOBIN 26.9 PG (27.0-31.0); MEAN CORPUSCULAR HGB CONC 32.5 g/dL (33.0-36.5); MEAN CORPUSCULAR VOLUME 82.6 FL (78-98); MONOCYTES # (AUTO) 0.8 X10'3 (0-0.9); MONOCYTES % (AUTO) 5.7 % (2-12); NEUTROPHILS # (AUTO) 9.4 X10'3 (1.8-7.7); NEUTROPHILS % (AUTO) 67.5 % (42-75); PLATELET COUNT 300 X10'3 (140-440); RED BLOOD COUNT 5.61 X10'6 (4.70-6.10); WHITE BLOOD COUNT 13.9 X10'3 (4.5-11.0)
[2023-05-17 20:22] LABS: TOTAL CELLS COUNTED 100
[2023-05-17 20:23] LABS: ANISOCYTOSIS 1+; PLATELET ESTIMATE NORMAL; POIKILOCYTOSIS FEW
== END 2023-05-17 21:09 | disposition home or self-care (01) ==
LOC: ER 18:05
DX: R22.42 Localized swelling, mass and lump, left lower limb (principal); M79.602 Pain in left arm; I12.9 Hypertensive chronic kidney disease with stage 1 through stage 4 chronic kidney disease, or unspecified chronic kidney disease; N18.9 Chronic kidney disease, unspecified
CPT/HCPCS: 36415; 80053; 83880; 84484; 85007; 85025; 93005; 93971; 99284

== ENCOUNTER 2023-05-21 15:09 | Outpatient (CLI) | payer MEDICARE, MEDICAID ==
[2023-05-21 15:35] LABS: ABG BASE EXCESS -0.9 mmol/L (-2.0-2.0); ABG HCO3 24.2 mmol/L (22.0-26.0); ABG OXYGEN SATURATION 95.6 % (94-97); ABG PCO2 (T) 41.9 mmHg (35.0-48.0); ABG PO2 (T) 77.2 mmHg (75.0-100.0); ALLEN'S TEST POSITIVE; FCOHb 1.4 % (0.0-3.9); FHHb 4.3 % (0.0-5.0); FMetHb 0.3 % (0.0-1.5); MODE ROOM AIR; TOTAL HEMOGLOBIN 15.1 G/dl (14.0-17.9)
[2023-05-31] MEDS ORDERED: CEPH250T PO (04:09)
[2023-05-31] MEDS ORDERED: ONDA8TAB13 PO (04:14)
[2023-05-31] MEDS ORDERED: FAMO-128 PO (04:14)
== END 2023-05-21 23:59 | disposition home or self-care (01) ==
LOC: RT 15:09
PROVIDERS: ATTEND Nurse Practitioner Family
DX: R06.02 Shortness of breath (principal); G47.33 Obstructive sleep apnea (adult) (pediatric); E66.8 Other obesity
CPT/HCPCS: 36600; 82803; 85018

== ENCOUNTER 2023-06-26 20:45 | Emergency (ER) | payer MEDICARE, MEDICAID ==
[~2023-06-26] VITALS: Ht 185.4 cm; Wt 252.7 kg
[~2023-06-26 20:45] MED LIST changes: +FAMO-128 PO; +ONDA8TAB13 PO
[2023-06-26 20:55] VITALS: BP 151/88; PULSE 90; O2SAT 96
[2023-06-26] MEDS ORDERED: diphenhydrAMINE 50 mg/ml inj IM ONE (23:20)
[2023-06-26] MEDS ORDERED: metoclopramide 5 mg/ml inj IM ONE (23:20)
[2023-06-26] MEDS ORDERED: ketorolac trometh inj. 60 MG/2 ML VIAL IM ONE (23:20)
[2023-06-26 23:36] VITALS: RESP 20
[2023-06-27 01:29] VITALS: TEMP 98
== END 2023-06-27 01:32 | disposition home or self-care (01) ==
LOC: ER 20:46
DX: G43.909 Migraine, unspecified, not intractable, without status migrainosus (principal); K21.9 Gastro-esophageal reflux disease without esophagitis; E11.22 Type 2 diabetes mellitus with diabetic chronic kidney disease; N18.9 Chronic kidney disease, unspecified; E03.9 Hypothyroidism, unspecified; Z88.6 Allergy status to analgesic agent; Z88.8 Allergy status to other drugs, medicaments and biological substances; Z79.1 Long term (current) use of non-steroidal anti-inflammatories (NSAID); Z79.899 Other long term (current) drug therapy
CPT/HCPCS: 96372; 99284; J1200; J1885; J2765

== ENCOUNTER 2023-11-11 14:23 | Emergency (ER) | payer MEDICARE, MEDICAID ==
[~2023-11-11] VITALS: Ht 185.4 cm; Wt 256.4 kg
[2023-11-11 14:35] VITALS: TEMP 98.2
[2023-11-11 15:15] LABS: BILIRUBIN,URINE NEGATIVE (Neg); CLARITY,URINE CLOUDY (Clear); COLOR,URINE YELLOW (Yellow); GLUCOSE, URINE NEGATIVE (Neg); KETONES,URINE NEGATIVE (Neg); LEUKOCYTE ESTERASE ,URINE NEGATIVE (Neg); NITRITES, URINE NEGATIVE (Neg); OCCULT BLOOD,URINE NEGATIVE (Neg); PH,URINE 5.5 (4.8-8.0); PROTEIN,URINE NEGATIVE (Neg); UA COLLECTION TYPE CLN CATCH MIDSTREAM; UROBILINOGEN,URINE 0.2 E.U/dL (0.2-1.0)
[2023-11-11 15:39] LABS: MUCUS STRANDS MODERATE /LPF (Neg); SQUAMOUS EPITHELIAL CELL,UR MANY /LPF (FEW)
[2023-11-11 15:40] LABS: BACTERIA,URINE 1+ /HPF (Neg); WBC,URINE 0-4 /HPF (0-4)
[2023-11-11] MEDS: normal saline 1000ML IV soln IVB ONE (17:04)
[2023-11-11] MEDS: metoclopramide 5 mg/ml inj IV ONE (17:06)
[2023-11-11] MEDS: ketorolac trometh. 30mg/ml inj. IV ONE (17:11)
[2023-11-11 17:26] LABS: BASOPHILS # (AUTO) 0.1 X10'3 (0-0.2); BASOPHILS % (AUTO) 0.7 % (0-1); EOSINOPHILS # (AUTO) 0.1 X10'3 (0-0.9); EOSINOPHILS % (AUTO) 0.7 % (0-6); HEMATOCRIT 44.3 % (42.0-52.0); HEMOGLOBIN 14.3 g/dl (14.0-17.9); LYMPHOCYTES # (AUTO) 3.1 X10'3 (1.1-4.8); LYMPHOCYTES % (AUTO) 21.8 % (21-51); MEAN CORPUSCULAR HEMOGLOBIN 27.1 PG (27.0-31.0); MEAN CORPUSCULAR HGB CONC 32.4 g/dL (33.0-36.5); MEAN CORPUSCULAR VOLUME 83.5 FL (78-98); MEAN PLATELET VOLUME 6.9 FL (7.4-10.4); MONOCYTES # (AUTO) 0.9 X10'3 (0-0.9); MONOCYTES % (AUTO) 6.5 % (2-12); NEUTROPHILS # (AUTO) 9.9 X10'3 (1.8-7.7); NEUTROPHILS % (AUTO) 70.3 % (42-75); PLATELET COUNT 288 X10'3 (140-440); RED CELL DISTRIBUTION WIDTH 15.7 % (11.5-14.5); WHITE BLOOD COUNT 14.1 X10'3 (4.5-11.0)
[2023-11-11 17:43] VITALS: RESP 16
[2023-11-11 17:50] LABS: ALANINE AMINOTRANSFERASE 37 U/L (12-78); ALBUMIN 3.1 G/DL (3.4-5.0); ALBUMIN/GLOBULIN RATIO 0.8 (1.1-1.5); ALKALINE PHOSPHATASE 85 IU/L (46-116); ANION GAP 9 (8-16); ASPARTATE AMINO TRANSFERASE 23 U/L (10-37); BILIRUBIN,TOTAL 0.2 MG/DL (0.1-1.0); BLOOD UREA NITROGEN 20 MG/DL (7-18); BUN/CREATININE RATIO 13.8 (10.0-20.0); CALCIUM 8.3 MG/DL (8.5-10.1); CHLORIDE 109 MMOL/L (99-107); CREATININE 1.45 MG/DL (0.60-1.10); GLUCOSE 144 MG/DL (70-104); LIPASE 40 U/L (16-77); SODIUM 140 MMOL/L (135-145); TOTAL CARBON DIOXIDE 22.1 MMOL/L (24-32); TOTAL PROTEIN 7.1 G/DL (6.4-8.2); eCRCL 77 ML/MIN; eGFR 54 ML/MIN
[2023-11-11 17:57] LABS: POTASSIUM 4.8 MMOL/L (3.5-5.1)
[2023-11-11] MEDS ORDERED: METO10TA3 PO (18:43)
[2023-11-11 19:06] VITALS: BP 116/74; PULSE 86; O2SAT 98
== END 2023-11-11 19:08 | disposition home or self-care (01) ==
LOC: ER 14:24
DX: R10.12 Left upper quadrant pain (principal); R10.32 Left lower quadrant pain; R11.2 Nausea with vomiting, unspecified; E13.22 Other specified diabetes mellitus with diabetic chronic kidney disease; N18.9 Chronic kidney disease, unspecified; F32.A Depression, unspecified; K21.9 Gastro-esophageal reflux disease without esophagitis; Z88.6 Allergy status to analgesic agent; Z79.899 Other long term (current) drug therapy; Z79.1 Long term (current) use of non-steroidal anti-inflammatories (NSAID)
CPT/HCPCS: 36415; 80053; 81001; 82948; 83605; 83690; 84145; 85025; 87040; 96361; 96374; 96375; 99284; J1885; J2765; J7030; A6258

== ENCOUNTER 2024-03-24 12:43 | Outpatient (CLI) | payer MEDICARE, MEDICAID ==
[~2024-03-24 12:43] MED LIST changes: +ONDA-243 PO; +ONDA-245 PO; -ONDA4TAB12 PO; -ONDA8TAB13 PO
== END 2024-03-24 23:59 | disposition home or self-care (01) ==
LOC: VAS 12:43
PROVIDERS: ATTEND Family Medicine
DX: I82.629 Acute embolism and thrombosis of deep veins of unspecified upper extremity (principal)
CPT/HCPCS: 93971

== ENCOUNTER 2024-03-28 12:02 | Emergency (ER) | payer MEDICARE, MEDICAID ==
[~2024-03-28] VITALS: Ht 185.4 cm; Wt 249.0 kg
[2024-03-28 12:05] VITALS: BP 172/80; PULSE 94; RESP 18; O2SAT 96
[2024-03-28] MEDS ORDERED: NITR100C6 PO (12:23)
[2024-03-28] MEDS: phenazopyridine 100mg tablet PO ONE (12:33)
[2024-03-28] MEDS: nitrofuran monohydrate/nitrofuran macrocrysal 100 MG (MacroBID) capsule PO ONE (12:34)
[2024-03-28] MEDS: CefTRIAXone 1000mg IM Kit (w/lidocaine diluent) IM ONE (12:34)
[2024-03-28] MEDS: ondansetron 4mg rapidly disintigrating tab PO ONE (12:34)
[2024-03-28 12:51] VITALS: TEMP 98.5
== END 2024-03-28 12:55 | disposition home or self-care (01) ==
LOC: ER 12:03
DX: N39.0 Urinary tract infection, site not specified (principal); R11.0 Nausea; M54.9 Dorsalgia, unspecified; R50.9 Fever, unspecified; G47.30 Sleep apnea, unspecified; K21.9 Gastro-esophageal reflux disease without esophagitis; E11.22 Type 2 diabetes mellitus with diabetic chronic kidney disease; N18.9 Chronic kidney disease, unspecified; E03.9 Hypothyroidism, unspecified; F41.9 Anxiety disorder, unspecified; F32.A Depression, unspecified; Z86.718 Personal history of other venous thrombosis and embolism; Z88.8 Allergy status to other drugs, medicaments and biological substances; Z79.899 Other long term (current) drug therapy
CPT/HCPCS: 96372; 99284; J0696

== ENCOUNTER 2024-03-31 18:32 | Emergency (ER) | payer MEDICARE, MEDICAID ==
[~2024-03-31] VITALS: Ht 185.4 cm; Wt 247.6 kg
[~2024-03-31 18:32] MED LIST changes: +NITR100C6 PO
[2024-03-31 19:54] LABS: BILIRUBIN,URINE SMALL (Neg); CLARITY,URINE CLEAR (Clear); COLOR,URINE YELLOW (Yellow); GLUCOSE, URINE NEGATIVE (Neg); KETONES,URINE NEGATIVE (Neg); LEUKOCYTE ESTERASE ,URINE TRACE (Neg); NITRITES, URINE NEGATIVE (Neg); OCCULT BLOOD,URINE NEGATIVE (Neg); PROTEIN,URINE TRACE mg/dl (Neg); UROBILINOGEN,URINE 0.2 E.U/dL (0.2-1.0)
[2024-03-31 19:56] LABS: UA COLLECTION TYPE CLN CATCH MIDSTREAM
[2024-03-31 20:08] LABS: RBC,URINE NONE SEEN /HPF (0-2); WBC,URINE 20-30 /HPF (0-4)
[2024-03-31 20:09] LABS: BACTERIA,URINE FEW /HPF (Neg); MUCUS STRANDS FEW /LPF (Neg); SQUAMOUS EPITHELIAL CELL,UR MODERATE /LPF (FEW)
[2024-03-31 20:24] LABS: BASOPHILS % (AUTO) 0.3 % (0-1); EOSINOPHILS # (AUTO) 0.1 X10'3 (0-0.9); EOSINOPHILS % (AUTO) 0.4 % (0-6); HEMATOCRIT 52.4 % (42.0-52.0); LYMPHOCYTES # (AUTO) 2.9 X10'3 (1.1-4.8); LYMPHOCYTES % (AUTO) 17.7 % (21-51); MEAN CORPUSCULAR HEMOGLOBIN 26.6 PG (27.0-31.0); MEAN CORPUSCULAR HGB CONC 32.5 g/dL (33.0-36.5); MEAN CORPUSCULAR VOLUME 81.7 FL (78-98); MEAN PLATELET VOLUME 6.8 FL (7.4-10.4); MONOCYTES # (AUTO) 0.9 X10'3 (0-0.9); MONOCYTES % (AUTO) 5.4 % (2-12); NEUTROPHILS # (AUTO) 12.3 X10'3 (1.8-7.7); NEUTROPHILS % (AUTO) 76.2 % (42-75); PLATELET COUNT 298 X10'3 (140-440); RED BLOOD COUNT 6.41 X10'6 (4.70-6.10); RED CELL DISTRIBUTION WIDTH 16.2 % (11.5-14.5); WHITE BLOOD COUNT 16.2 X10'3 (4.5-11.0)
[2024-03-31 20:41] LABS: ALANINE AMINOTRANSFERASE 68 U/L (12-78); ALBUMIN 3.6 G/DL (3.4-5.0); ALBUMIN/GLOBULIN RATIO 0.8 (1.1-1.5); ALKALINE PHOSPHATASE 99 IU/L (46-116); ANION GAP 12 (8-16); ASPARTATE AMINO TRANSFERASE 20 U/L (10-37); BILIRUBIN,TOTAL 0.4 MG/DL (0.1-1.0); BLOOD UREA NITROGEN 14 MG/DL (7-18); CALCIUM 9.4 MG/DL (8.5-10.1); CHLORIDE 108 MMOL/L (99-107); GLUCOSE 120 MG/DL (70-104); POTASSIUM 3.7 MMOL/L (3.5-5.1); SODIUM 141 MMOL/L (135-145); TOTAL CARBON DIOXIDE 21.5 MMOL/L (24-32); TOTAL PROTEIN 8.2 G/DL (6.4-8.2); eCRCL 79 ML/MIN; eGFR 56 ML/MIN
[2024-03-31] MEDS: CefTRIAXone 1000mg IM Kit (w/lidocaine diluent) IM ONE (23:38)
[2024-03-31 23:56] VITALS: BP 128/75; PULSE 90; RESP 16; TEMP 98.2; O2SAT 96
[2024-04-01] MEDS ORDERED: CEFD300C3 PO (00:07)
== END 2024-03-31 23:57 | disposition home or self-care (01) ==
LOC: ER 18:33
DX: N39.0 Urinary tract infection, site not specified (principal); K21.9 Gastro-esophageal reflux disease without esophagitis; E11.22 Type 2 diabetes mellitus with diabetic chronic kidney disease; N18.9 Chronic kidney disease, unspecified; E03.9 Hypothyroidism, unspecified; F32.A Depression, unspecified; Z88.6 Allergy status to analgesic agent; Z88.8 Allergy status to other drugs, medicaments and biological substances; Z79.899 Other long term (current) drug therapy; Z79.1 Long term (current) use of non-steroidal anti-inflammatories (NSAID)
CPT/HCPCS: 36415; 80053; 81001; 83605; 84145; 85025; 87040; 87088; 96372; 99283; J0696

== ENCOUNTER 2024-05-23 14:54 | Emergency (ER) | payer MEDICARE, MEDICAID ==
[~2024-05-23] VITALS: Ht 185.4 cm; Wt 244.3 kg
[~2024-05-23 14:54] MED LIST changes: +ERTA1VIA4 IV; -FLUC100T25 PO; -LOPE2CAP PO; -NITR100C6 PO; +OXYC-658 PO
[2024-05-23 15:13] VITALS: TEMP 97.3
[2024-05-23] MEDS: ondansetron/PF 4mg/2ml inj IV ONE (19:21)
[2024-05-23] MEDS: morphine 4 MG/ML inj SYRINge IV ONE (19:24)
[2024-05-23 19:25] LABS: BASOPHILS # (AUTO) 0.1 X10'3 (0-0.2); BASOPHILS % (AUTO) 0.5 % (0-1); EOSINOPHILS # (AUTO) 0.1 X10'3 (0-0.9); EOSINOPHILS % (AUTO) 0.9 % (0-6); HEMOGLOBIN 16.2 g/dl (14.0-17.9); LYMPHOCYTES # (AUTO) 3.2 X10'3 (1.1-4.8); MEAN CORPUSCULAR HEMOGLOBIN 26.8 PG (27.0-31.0); MEAN CORPUSCULAR HGB CONC 32.4 g/dL (33.0-36.5); MEAN CORPUSCULAR VOLUME 82.8 FL (78-98); MEAN PLATELET VOLUME 6.9 FL (7.4-10.4); MONOCYTES # (AUTO) 0.7 X10'3 (0-0.9); MONOCYTES % (AUTO) 5.5 % (2-12); NEUTROPHILS # (AUTO) 8.6 X10'3 (1.8-7.7); NEUTROPHILS % (AUTO) 68.1 % (42-75); PLATELET COUNT 296 X10'3 (140-440); RED BLOOD COUNT 6.05 X10'6 (4.70-6.10); RED CELL DISTRIBUTION WIDTH 16.8 % (11.5-14.5); WHITE BLOOD COUNT 12.6 X10'3 (4.5-11.0)
[2024-05-23 19:32] LABS: ALBUMIN 3.4 G/DL (3.4-5.0); ANION GAP 12 (8-16); BLOOD UREA NITROGEN 17 MG/DL (7-18); BUN/CREATININE RATIO 10.9 (10.0-20.0); CALCIUM 9.2 MG/DL (8.5-10.1); CHLORIDE 109 MMOL/L (99-107); CREATININE 1.56 MG/DL (0.60-1.10); GLUCOSE 111 MG/DL (70-104); POTASSIUM 4.1 MMOL/L (3.5-5.1); SODIUM 145 MMOL/L (135-145); TOTAL CARBON DIOXIDE 24.4 MMOL/L (24-32); eCRCL 71 ML/MIN; eGFR 50 ML/MIN
[2024-05-23 21:00] VITALS: BP 178/98; PULSE 100; RESP 20; O2SAT 95
== END 2024-05-23 21:04 | disposition home or self-care (01) ==
LOC: ER 14:55
DX: T82.594A Other mechanical complication of infusion catheter, initial encounter (principal); K21.9 Gastro-esophageal reflux disease without esophagitis; N18.9 Chronic kidney disease, unspecified; E11.22 Type 2 diabetes mellitus with diabetic chronic kidney disease; E03.9 Hypothyroidism, unspecified; F32.A Depression, unspecified; Z88.6 Allergy status to analgesic agent; Z88.2 Allergy status to sulfonamides; Z79.899 Other long term (current) drug therapy
CPT/HCPCS: 36415; 36569; 80048; 82948; 85025; 87070; 96374; 96375; 99285; A4353; J2270; J2405; 99284

== ENCOUNTER 2024-05-24 11:26 | Emergency (ER) | payer MEDICARE, MEDICAID ==
[~2024-05-24] VITALS: Ht 185.4 cm; Wt 244.3 kg
[2024-05-24 13:04] VITALS: BP 113/66; PULSE 76; TEMP 98.1; O2SAT 96
[2024-05-24 14:13] LABS: BASOPHILS % (AUTO) 0.4 % (0-1); EOSINOPHILS # (AUTO) 0.1 X10'3 (0-0.9); HEMATOCRIT 47.6 % (42.0-52.0); HEMOGLOBIN 15.4 g/dl (14.0-17.9); LYMPHOCYTES # (AUTO) 2.9 X10'3 (1.1-4.8); LYMPHOCYTES % (AUTO) 26.7 % (21-51); MEAN CORPUSCULAR HEMOGLOBIN 26.8 PG (27.0-31.0); MEAN CORPUSCULAR HGB CONC 32.3 g/dL (33.0-36.5); MEAN CORPUSCULAR VOLUME 82.7 FL (78-98); MEAN PLATELET VOLUME 6.8 FL (7.4-10.4); MONOCYTES # (AUTO) 0.8 X10'3 (0-0.9); MONOCYTES % (AUTO) 7.5 % (2-12); NEUTROPHILS % (AUTO) 64.4 % (42-75); PLATELET COUNT 261 X10'3 (140-440); RED BLOOD COUNT 5.76 X10'6 (4.70-6.10); RED CELL DISTRIBUTION WIDTH 16.6 % (11.5-14.5); WHITE BLOOD COUNT 10.9 X10'3 (4.5-11.0)
[2024-05-24 14:27] LABS: ALANINE AMINOTRANSFERASE 61 U/L (12-78); ALBUMIN/GLOBULIN RATIO 0.8 (1.1-1.5); ALKALINE PHOSPHATASE 74 IU/L (46-116); ANION GAP 10 (8-16); ASPARTATE AMINO TRANSFERASE 24 U/L (10-37); BILIRUBIN,TOTAL 0.4 MG/DL (0.1-1.0); BLOOD UREA NITROGEN 16 MG/DL (7-18); BUN/CREATININE RATIO 13.4 (10.0-20.0); CALCIUM 8.8 MG/DL (8.5-10.1); CHLORIDE 110 MMOL/L (99-107); CREATININE 1.19 MG/DL (0.60-1.10); GLUCOSE 102 MG/DL (70-104); POTASSIUM 4.2 MMOL/L (3.5-5.1); SODIUM 142 MMOL/L (135-145); TOTAL CARBON DIOXIDE 22.5 MMOL/L (24-32); TOTAL PROTEIN 6.8 G/DL (6.4-8.2); eCRCL 93 ML/MIN; eGFR 68 ML/MIN
[2024-05-24 14:30] LABS: BILIRUBIN,URINE NEGATIVE (Neg); CLARITY,URINE CLEAR (Clear); COLOR,URINE YELLOW (Yellow); GLUCOSE, URINE NEGATIVE (Neg); KETONES,URINE NEGATIVE (Neg); LEUKOCYTE ESTERASE ,URINE NEGATIVE (Neg); NITRITES, URINE NEGATIVE (Neg); OCCULT BLOOD,URINE NEGATIVE (Neg); PROTEIN,URINE NEGATIVE (Neg); UROBILINOGEN,URINE 0.2 E.U/dL (0.2-1.0)
[2024-05-24 14:34] LABS: UA COLLECTION TYPE NON-SPECIFIED
[2024-05-24] MEDS: morphine 2 MG/ML inj. syringe IV STA (15:45)
[2024-05-24 16:35] VITALS: RESP 16
== END 2024-05-24 17:00 | disposition home or self-care (01) ==
LOC: ER 11:27
DX: N39.0 Urinary tract infection, site not specified (principal); K21.9 Gastro-esophageal reflux disease without esophagitis; E11.22 Type 2 diabetes mellitus with diabetic chronic kidney disease; N18.9 Chronic kidney disease, unspecified; E03.9 Hypothyroidism, unspecified; F41.9 Anxiety disorder, unspecified; F32.A Depression, unspecified; Z88.6 Allergy status to analgesic agent; Z88.2 Allergy status to sulfonamides; Z91.018 Allergy to other foods; Z79.899 Other long term (current) drug therapy; Z79.1 Long term (current) use of non-steroidal anti-inflammatories (NSAID)
CPT/HCPCS: 36415; 76870; 80053; 81003; 82948; 84145; 85025; 96374; 99285; J2270

== ENCOUNTER 2025-01-16 01:33 | Emergency (ER) | payer MEDICARE, MEDICAID ==
[~2025-01-16] VITALS: Ht 185.4 cm; Wt 225.9 kg
[~2025-01-16 01:33] MED LIST changes: -FLO0.4C PO; +TAMS-55 PO
[2025-01-16 01:50] VITALS: O2SAT 97
[2025-01-16 01:56] LABS: BASOPHILS # (AUTO) 0.1 X10'3 (0-0.2); BASOPHILS % (AUTO) 0.4 % (0-1); EOSINOPHILS # (AUTO) 0.1 X10'3 (0-0.9); EOSINOPHILS % (AUTO) 0.6 % (0-6); HEMATOCRIT 48.3 % (42.0-52.0); HEMOGLOBIN 16.3 g/dl (14.0-17.9); LYMPHOCYTES # (AUTO) 3.4 X10'3 (1.1-4.8); LYMPHOCYTES % (AUTO) 23.2 % (21-51); MEAN CORPUSCULAR HEMOGLOBIN 27.3 PG (27.0-31.0); MEAN CORPUSCULAR HGB CONC 33.7 g/dL (33.0-36.5); MEAN CORPUSCULAR VOLUME 80.9 FL (78-98); MEAN PLATELET VOLUME 6.7 FL (7.4-10.4); MONOCYTES # (AUTO) 0.9 X10'3 (0-0.9); MONOCYTES % (AUTO) 6.2 % (2-12); NEUTROPHILS # (AUTO) 10.1 X10'3 (1.8-7.7); NEUTROPHILS % (AUTO) 69.6 % (42-75); PLATELET COUNT 247 X10'3 (140-440); RED BLOOD COUNT 5.97 X10'6 (4.70-6.10); WHITE BLOOD COUNT 14.5 X10'3 (4.5-11.0)
[2025-01-16 02:09] LABS: ALANINE AMINOTRANSFERASE 44 U/L (12-78); ALBUMIN 3.1 G/DL (3.4-5.0); ALBUMIN/GLOBULIN RATIO 0.9 (1.1-1.5); ALKALINE PHOSPHATASE 96 IU/L (46-116); ANION GAP 11 (8-16); ASPARTATE AMINO TRANSFERASE 18 U/L (10-37); BILIRUBIN,TOTAL 0.5 MG/DL (0.1-1.0); BLOOD UREA NITROGEN 12 MG/DL (7-18); BUN/CREATININE RATIO 10.1 (10.0-20.0); CALCIUM 8.5 MG/DL (8.5-10.1); CHLORIDE 110 MMOL/L (99-107); CREATININE 1.19 MG/DL (0.60-1.10); GLUCOSE 118 MG/DL (70-104); LIPASE 36 U/L (16-77); POTASSIUM 3.5 MMOL/L (3.5-5.1); SODIUM 143 MMOL/L (135-145); TOTAL CARBON DIOXIDE 21.8 MMOL/L (24-32); TOTAL PROTEIN 6.7 G/DL (6.4-8.2); eCRCL 92 ML/MIN; eGFR 67 ML/MIN
--- NOTE | 2025-01-16 03:18 | Physician Documentation ---
History of Present Illness ~ Chief Complaint: Vomiting w/diarrhea Stated Complaint: ABDOMINAL PAIN Time Seen by MD: 03:16 Primary Medical Doctor: Keren Caputo Mode of Arrival: EMS HPI Patient presents to the emergency room with chief complaint of abdominal pain along with vomiting and diarrhea. Onset today. No chest pain. He does endorse diffuse abdominal pain. No fevers. Continues to pass gas and liquid stool. No sick contacts. Patient does take Mounjaro Medication Reconciliation Allergies: Coded Allergies: ibuprofen (Unverified Allergy, Intermediate, swelling, 03/31/24) sulfamethoxazole (Verified Allergy, Mild, interaction with psych meds, 05/13/24) trimethoprim (Verified Allergy, Mild, interaction with psych meds, 05/13/24) mcdaniel pepper (Unverified Allergy, Unknown, 05/18/24) pt reports rash/itchiness bupropion HCl (Verified Allergy, Unknown, 03/31/24) methylphenidate HCl (Verified Allergy, Unknown, 03/31/24) pepper (genus Capsicum) (Verified Allergy, Unknown, 03/31/24) prednisone (Verified Allergy, Unknown, 03/31/24) quetiapine (Verified Allergy, Unknown, 03/31/24) sumatriptan (Verified Allergy, Unknown, paralysis, 03/31/24) ziprasidone (Unverified Allergy, Unknown, 03/31/24) zolpidem (Verified Allergy, Unknown, 03/31/24) Scheduled Apixaban (Eliquis), 1 TAB PO Q12H Asenapine Maleate (Saphris), 2 TAB SL HS, (Reported) Baclofen (Baclofen), 1 TABLET PO TID@0800,1600,2200 Cetirizine HCl (Cetirizine HCl), 1 TAB PO DAILY, (Reported) Cholecalciferol (Vitamin D3) (Vitamin D3), 2 TABLET PO DAILY, (Reported) Ertapenem Sodium (Ertapenem), 1 GM IV DAILY Famotidine (Pepcid), 1 TAB PO Q12H Levothyroxine* (Synthroid*), 1 TAB PO DAILY@0730, (Reported) Loperamide Hcl (Loperamide), 2 CAP PO Q6H Ondansetron 8mg ODT (Ondansetron Odt), 1 TAB PO Q6H Ondansetron 8mg ODT (Ondansetron Odt), 1 TAB PO Q6H Pantoprazole Sodium (Pantoprazole Sodium), 1 TAB PO DAILY@79170 Sertraline Hcl (Zoloft), 2 TABLET PO HS, (Reported) Tamsulosin Hcl* (Flomax*), 1 TAB PO BID@1630,2200 Testosterone (Androgel), 1 PACKET TOP DAILY@1200, (Reported) Testosterone (Androgel), 1 PKT TOP DAILY@1300, (Reported) Tirzepatide (Mounjaro), 10 MG SUBCUT Q7D, (Reported) Topiramate (Topamax), 2 TABLET PO HS, (Reported) Scheduled PRN Hydroxyzine Hcl* (Atarax*), 2 TAB PO BID PRN for for anxiety/agitation, (Reported) Lidocaine (Lidoderm), 1 PATCH TOP DAILY PRN for pain, (Reported) ONDANSETRON ODT 4mg tablet (Ondansetron Odt), 1 TABLET PO Q6H PRN for NAUSEA, (Reported) Oxycodone Hcl IR* (Oxycodone IR*), 10 MG PO Q6H PRN for severe pain (7-10) Phenazopyridine Hcl (Pyridium tablet), 1 TAB PO Q8H PRN for DIFFICULT URINATION, (Reported) Past Medical History Past Medical History: Headache, Sleep Apnea, GERD, *RENAL/*, Chronic Kidney Disease, UTI, Diabetes, Hypothyroidism, Deep Vein Thrombosis, Gout, Anxiety, Depression Past Surgical History: no surgical history Patient History: FH: gallbladder disease MOTHER Alcohol Use: None Drug Use: none Lives with: Other Lives In: Assisted Care Occupation: disabled Review of Systems ROS All review of systems negative except as per HPI Physical Exam Vital Signs: Temperature: 97.8, Source: Oral, Heart Rate: 81, Respiratory Rate: 16, BP: 130/85, Pulse Oximetry: 97, Weight: 225.910 Oxygen Flow Rate: 0 Physical Exam General: Patient is awake, alert, oriented x4 in no acute distress, morbidly obese Head: Normocephalic and atraumatic. Eyes: Conjunctival normal. EOMI. PERRL. ENT: Mucous membranes moist. Neck: Supple, trachea is midline. Chest: Clear to auscultation bilaterally without rales, rhonchi, or wheezes. There is no accessory muscle use or retractions. Cardiac: RRR without murmurs, gallops, or rubs. Abd: Soft, nondistended, diffuse abdominal tenderness to palpation without peritonitis Progress Results/Orders Results/Orders Orders - ZEESHAN ACEVEDO MD Saline Lock (01/16/25 01:38) Straight Cath For Urine Sample (01/16/25 01:38) Ct Abdomen Pelvis (01/16/25 04:00) Completed Orders - ZEESHAN ACEVEDO MD Urinalysis, Cult If Indicated (01/16/25 01:38) Cbc/Diff (01/16/25 01:38) Lipase (01/16/25 01:38) CMP (01/16/25 01:38) Ct Abdomen Pelvis (01/16/25 04:00) Normal Saline 1000ml (Sodium Chloride 10 (01/16/25 03:25) Ondansetron Inj. (Zofran 4mg/2ml Vial) (01/16/25 03:25) Prochlorperazine Inj (Compazine Inj) (01/16/25 04:50) Procalcitonin (01/16/25 04:46) Loperamide Capsule (Imodium Capsule) (01/16/25 06:05) Vital Signs 01/16/25 01/16/25 01/16/25 01/16/25 01:37 01:50 01:50 06:25 Temp 97.8 97.8 Pulse 85 81 53 Resp 20 16 18 16 B/P (MAP) 130/85 130/85 (100) 136/82 Pulse Ox 97 97 O2 Flow Rate 0 0 Laboratory Tests Test 01/16/25 01:47 01/16/25 05:19 White Blood Count 14.5 H Red Blood Count 5.97 Hemoglobin 16.3 Hematocrit 48.3 Mean Corpuscular Volume 80.9 Mean Corpuscular Hemoglobin 27.3 Mean Corpuscular Hemoglobin Concent 33.7 Red Cell Distribution Width 16.0 H Platelet Count 247 Mean Platelet Volume 6.7 L Neutrophils (%) (Auto) 69.6 Lymphocytes (%) (Auto) 23.2 Monocytes (%) (Auto) 6.2 Eosinophils (%) (Auto) 0.6 Basophils (%) (Auto) 0.4 Neutrophils # (Auto) 10.1 H Lymphocytes # (Auto) 3.4 Monocytes # (Auto) 0.9 Eosinophils # (Auto) 0.1 Basophils # (Auto) 0.1 CBC Comment Sodium Level 143 Potassium Level 3.5 Chloride Level 110 H Carbon Dioxide Level 21.8 L Anion Gap 11 Blood Urea Nitrogen 12 Creatinine 1.19 H Estimated GFR/1.73 m2 67 BUN/Creatinine Ratio 10.1 Glucose Level 118 H Calcium Level 8.5 Total Bilirubin 0.5 Aspartate Amino Transf (AST/SGOT) 18 Alanine Aminotransferase (ALT/SGPT) 44 Alkaline Phosphatase 96 Total Protein 6.7 Albumin 3.1 L Globulin 3.6 Albumin/Globulin Ratio 0.9 L Lipase 36 Procalcitonin < 0.05 Chemistry Comments Urine Specimen Description Urinal Urine Color Yellow Urine Clarity Clear Urine pH 6.0 Urine Specific [place] 1.025 Urine Protein Negative Urine Glucose (UA) Negative Urine Ketones Negative Urine Occult Blood Negative Urine Nitrite Negative Urine Bilirubin Small Urine Urobilinogen 0.2 Urine Leukocyte Esterase Negative Urine Culture Indicated Not ind Volume Urine Centrifuged 10 ml Urine Comment Medical Decision Making Findings Patient presented to the emergency room with vomiting and diarrhea as per HPI. Differentials include but are not limited to gastroenteritis viral syndrome intra-abdominal infection electrolyte disturbances dehydration therefore emergent labs and imaging indicated. Labs reassuring for no leukocytosis. CT scan reassuring for no intra-abdominal infection. Nausea improved. Given patient having both diarrhea and vomiting at the same time I do believe he is suffering from viral infection we will treat as such. ER precautions discussed Departure Disposition: HOME / SELF CARE / HOMELESS Impression: Primary Impression: Gastroenteritis Condition: Stable Discharge Instructions: Viral Gastroenteritis, Adult Referrals: NO PRIMARY CARE PROVIDER (PCP) Prescriptions Loperamide Hcl (Loperamide) 2 Mg Capsule 2 CAP PO Q6H for loose stool for 5 Days, #40 CAP 0 Refills Prov: ZEESHAN ACEVEDO MD 01/16/25 Ondansetron 8mg ODT (Ondansetron Odt) 8 Mg Tab.rapdis 1 TAB PO Q6H for nausea/vomiting for 3 Days, #12 TAB 0 Refills Prov: ZEESHAN ACEVEDO MD 01/16/25 Education Educated: Patient Educated regarding: diagnosis, treatment, need for follow up Signature Scribe Signature: No scribe Attestation: The note accurately reflects work and decisions made by me.Zeeshan Acevedo MD 01/16/25 06:04 ZEESHAN ACEVEDO MD January 16, 2025 03:18
[2025-01-16] MEDS: ondansetron/PF 4mg/2ml inj IV ONE (03:37)
[2025-01-16] MEDS: normal saline 1000ml 1,000 ML IV ONE (03:38)
--- NOTE | 2025-01-16 05:08 | RADIOLOGY REPORT ---
Exam: CT CT ABDOMEN PELVIS History: abd pain Comparison Study: CT CHEST ABDOMEN PELVIS on DOS: 12/26/22 Technique: Multidetector spiral CT of the abdomen and pelvis was performed from lung bases to pubic s ymphysis. Imaging was performed without intravenous contrast. Coronal and sagittal multiplanar reform ats were obtained from the axial data set by the technologist. Radiation Dose : 1. Abdomen/Pelvis: CTDIvol 36.88 mGy, DLP 2117.5 mGy*cm. Findings: Evaluation of vasculature and solid organs is limited due to lack of intravenous contrast use. Lung Bases: Lung bases are clear. Visualized portions of the heart and pericardium are unremarkable. Liver: The liver is normal in size. No focal lesions. Gallbladder and Biliary Tree: The gallbladder is unremarkable No intrahepatic or extrahepatic biliar y ductal dilatation. Spleen: Unremarkable Pancreas: The pancreas is grossly unremarkable. Adrenal Glands: Unremarkable Kidneys: Kidneys are unremarkable without calculi or hydronephrosis. GI tract: The stomach is grossly normal in appearance. No evidence of small bowel wall thickening or abnormal dilatation to suggest bowel obstruction. The colon is unremarkable. The appendix is not visu alized, however no inflammatory changes in the right lower quadrant to suggest acute appendicitis. Peritoneum/mesentery/retroperitoneum. No evidence of free intraperitoneal air. No ascites. No evidenc e of suspicious lymphadenopathy. Abdominal Wall: Unremarkable. Vasculature: The visualized abdominal aorta is normal in size and caliber. Evaluation of abdominal a nd pelvic vessels is limited due to lack of intravenous contrast. Urinary Bladder: Grossly unremarkable for degree of distention. Pelvic Organs: Unremarkable Musculoskeletal: No aggressive focal bony lesions, acute fractures or dislocation. IMPRESSION: 1. No acute abdominal or pelvic findings.
[2025-01-16 05:53] LABS: BILIRUBIN,URINE SMALL (Neg); CLARITY,URINE CLEAR (Clear); COLOR,URINE YELLOW (Yellow); GLUCOSE, URINE NEGATIVE (Neg); KETONES,URINE NEGATIVE (Neg); LEUKOCYTE ESTERASE ,URINE NEGATIVE (Neg); NITRITES, URINE NEGATIVE (Neg); OCCULT BLOOD,URINE NEGATIVE (Neg); PROTEIN,URINE NEGATIVE (Neg); UROBILINOGEN,URINE 0.2 E.U/dL (0.2-1.0)
[2025-01-16 05:54] LABS: UA COLLECTION TYPE URINAL
[2025-01-16] MEDS: proCHLORperazine 10 MG/2 ml inj IV ONE (05:55)
[2025-01-16] MEDS ORDERED: LOPE2CAP PO (06:03)
[2025-01-16] MEDS: loperamide 2mg capsule PO ONE (06:18)
[2025-01-16 06:25] VITALS: BP 136/82; PULSE 53; RESP 16; TEMP 97.8
== END 2025-01-16 07:07 | disposition home or self-care (01) ==
LOC: ER 01:33
DX: K52.9 Noninfective gastroenteritis and colitis, unspecified (principal); E11.22 Type 2 diabetes mellitus with diabetic chronic kidney disease; N18.9 Chronic kidney disease, unspecified; G47.30 Sleep apnea, unspecified; E03.9 Hypothyroidism, unspecified; Z88.1 Allergy status to other antibiotic agents; Z88.2 Allergy status to sulfonamides; Z88.6 Allergy status to analgesic agent; Z88.8 Allergy status to other drugs, medicaments and biological substances
CPT/HCPCS: 36415; 74176; 80053; 81003; 83690; 84145; 85025; 96361; 96374; 96375; 99285; J0780; J2405; J7030

== ENCOUNTER 2025-01-18 17:47 | Emergency (ER) | payer MEDICARE, MEDICAID ==
[~2025-01-18] VITALS: Ht 185.4 cm; Wt 222.4 kg
[~2025-01-18 17:47] MED LIST changes: +LOPE2CAP PO
[2025-01-18 17:51] VITALS: BP 154/100; PULSE 101; TEMP 98.5; O2SAT 97
[2025-01-18 18:59] LABS: BASOPHILS % (AUTO) 0.1 % (0-1); EOSINOPHILS # (AUTO) 0.1 X10'3 (0-0.9); EOSINOPHILS % (AUTO) 0.5 % (0-6); HEMATOCRIT 50.7 % (42.0-52.0); HEMOGLOBIN 16.8 g/dl (14.0-17.9); LYMPHOCYTES # (AUTO) 2.8 X10'3 (1.1-4.8); LYMPHOCYTES % (AUTO) 20.3 % (21-51); MEAN CORPUSCULAR HEMOGLOBIN 27.2 PG (27.0-31.0); MEAN CORPUSCULAR HGB CONC 33.1 g/dL (33.0-36.5); MEAN CORPUSCULAR VOLUME 82.1 FL (78-98); MEAN PLATELET VOLUME 7.2 FL (7.4-10.4); MONOCYTES # (AUTO) 0.7 X10'3 (0-0.9); MONOCYTES % (AUTO) 5.3 % (2-12); NEUTROPHILS # (AUTO) 10.2 X10'3 (1.8-7.7); NEUTROPHILS % (AUTO) 73.8 % (42-75); PLATELET COUNT 277 X10'3 (140-440); RED BLOOD COUNT 6.18 X10'6 (4.70-6.10); RED CELL DISTRIBUTION WIDTH 15.9 % (11.5-14.5); WHITE BLOOD COUNT 13.8 X10'3 (4.5-11.0)
[2025-01-18 19:10] LABS: ALANINE AMINOTRANSFERASE 49 U/L (12-78); ALBUMIN 3.4 G/DL (3.4-5.0); ALBUMIN/GLOBULIN RATIO 0.9 (1.1-1.5); ALKALINE PHOSPHATASE 92 IU/L (46-116); ANION GAP 11 (8-16); ASPARTATE AMINO TRANSFERASE 19 U/L (10-37); BILIRUBIN,TOTAL 0.4 MG/DL (0.1-1.0); BLOOD UREA NITROGEN 11 MG/DL (7-18); CALCIUM 8.5 MG/DL (8.5-10.1); CHLORIDE 108 MMOL/L (99-107); CREATININE 1.22 MG/DL (0.60-1.10); GLUCOSE 101 MG/DL (70-104); LIPASE 38 U/L (16-77); POTASSIUM 3.7 MMOL/L (3.5-5.1); SODIUM 140 MMOL/L (135-145); TOTAL CARBON DIOXIDE 21.2 MMOL/L (24-32); TOTAL PROTEIN 7.3 G/DL (6.4-8.2); eCRCL 90 ML/MIN; eGFR 65 ML/MIN
[2025-01-18 22:50] VITALS: RESP 18
[2025-01-18 22:51] LABS: BILIRUBIN,URINE NEGATIVE (Neg); CLARITY,URINE CLEAR (Clear); COLOR,URINE YELLOW (Yellow); GLUCOSE, URINE NEGATIVE (Neg); KETONES,URINE NEGATIVE (Neg); LEUKOCYTE ESTERASE ,URINE SMALL (Neg); NITRITES, URINE POSITIVE (Neg); OCCULT BLOOD,URINE SMALL (Neg); PROTEIN,URINE NEGATIVE (Neg); UROBILINOGEN,URINE 0.2 E.U/dL (0.2-1.0)
[2025-01-18 22:55] LABS: UA COLLECTION TYPE NON-SPECIFIED
[2025-01-18 22:57] LABS: BACTERIA,URINE 3+ /HPF (Neg); RBC,URINE 0-2 /HPF (0-2); SQUAMOUS EPITHELIAL CELL,UR NONE SEEN /LPF (FEW)
[2025-01-18 22:58] LABS: WBC CLUMPS,URINE FEW /HPF (NEGATIVE)
--- NOTE | 2025-01-18 23:04 | Physician Documentation ---
History of Present Illness ~ Chief Complaint: Urinary Symptoms Stated Complaint: SICK/BLADDER INFECTION Time Seen by MD: 21:58 Primary Medical Doctor: Keren Caputo Mode of Arrival: Ambulatory HPI Patient presents to the emergency room with mother at bedside with continued nausea vomiting diarrhea. Patient reports desire has been going on for the past month. History of reoccurring urinary tract infections in [facility] is on board in his requesting a cath urinalysis. Also requesting patient be placed on Macrobid. Mother requesting Clostridium difficile lab as well. History of reflux and takes Protonix. 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 Medication Reconciliation Allergies: Coded Allergies: ibuprofen (Unverified Allergy, Intermediate, swelling, 03/31/24) sulfamethoxazole (Verified Allergy, Mild, interaction with psych meds, 05/13/24) trimethoprim (Verified Allergy, Mild, interaction with psych meds, 05/13/24) mcdaniel pepper (Unverified Allergy, Unknown, 05/18/24) pt reports rash/itchiness bupropion HCl (Verified Allergy, Unknown, 03/31/24) methylphenidate HCl (Verified Allergy, Unknown, 03/31/24) pepper (genus Capsicum) (Verified Allergy, Unknown, 03/31/24) prednisone (Verified Allergy, Unknown, 03/31/24) quetiapine (Verified Allergy, Unknown, 03/31/24) sumatriptan (Verified Allergy, Unknown, paralysis, 03/31/24) ziprasidone (Unverified Allergy, Unknown, 03/31/24) zolpidem (Verified Allergy, Unknown, 03/31/24) Scheduled Apixaban (Eliquis), 1 TAB PO Q12H Asenapine Maleate (Saphris), 2 TAB SL HS, (Reported) Baclofen (Baclofen), 1 TABLET PO TID@0800,1600,2200 Cetirizine HCl (Cetirizine HCl), 1 TAB PO DAILY, (Reported) Cholecalciferol (Vitamin D3) (Vitamin D3), 2 TABLET PO DAILY, (Reported) Ertapenem Sodium (Ertapenem), 1 GM IV DAILY Famotidine (Pepcid), 1 TAB PO Q12H Levothyroxine* (Synthroid*), 1 TAB PO DAILY@0730, (Reported) Loperamide Hcl (Loperamide), 2 CAP PO Q6H Ondansetron 8mg ODT (Ondansetron Odt), 1 TAB PO Q6H Ondansetron 8mg ODT (Ondansetron Odt), 1 TAB PO Q6H Pantoprazole Sodium (Pantoprazole Sodium), 1 TAB PO DAILY@19459 Sertraline Hcl (Zoloft), 2 TABLET PO HS, (Reported) Tamsulosin Hcl* (Flomax*), 1 TAB PO BID@1630,2200 Testosterone (Androgel), 1 PACKET TOP DAILY@1200, (Reported) Testosterone (Androgel), 1 PKT TOP DAILY@1300, (Reported) Tirzepatide (Mounjaro), 10 MG SUBCUT Q7D, (Reported) Topiramate (Topamax), 2 TABLET PO HS, (Reported) Scheduled PRN Hydroxyzine Hcl* (Atarax*), 2 TAB PO BID PRN for for anxiety/agitation, (Reported) Lidocaine (Lidoderm), 1 PATCH TOP DAILY PRN for pain, (Reported) ONDANSETRON ODT 4mg tablet (Ondansetron Odt), 1 TABLET PO Q6H PRN for NAUSEA, (Reported) Oxycodone Hcl IR* (Oxycodone IR*), 10 MG PO Q6H PRN for severe pain (7-10) Phenazopyridine Hcl (Pyridium tablet), 1 TAB PO Q8H PRN for DIFFICULT URINATION, (Reported) Past Medical History Past Medical History: Headache, Sleep Apnea, GERD, *RENAL/*, Chronic Kidney Disease, UTI, Diabetes, Hypothyroidism, Deep Vein Thrombosis, Gout, Anxiety, Depression Past Surgical History: no surgical history Patient History: FH: gallbladder disease MOTHER Alcohol Use: None Drug Use: none Lives with: Other Lives In: Assisted Care Occupation: disabled Review of Systems ROS All review of systems negative except as per HPI Physical Exam Vital Signs: Temperature: 98.5, Heart Rate: 101, Respiratory Rate: 18, BP: 154/100, Pulse Oximetry: 97, Weight: 222.450 Oxygen Flow Rate: 0 Physical Exam General: Patient is awake, alert, cooperative in no acute distress. Morbidly obese Head: Normocephalic and atraumatic. Eyes: Conjunctival normal. EOMI. PERRL. ENT: Mucous membranes moist. Neck: Supple, trachea is midline. Chest: Clear to auscultation bilaterally without rales, rhonchi, or wheezes. There is no accessory muscle use or retractions. Cardiac: RRR without murmurs, gallops, or rubs. Abd: Soft, very large pannus, no tenderness to palpation. Progress Results/Orders Results/Orders Orders - ZEESHAN ACEVEDO MD Straight Cath For Urine Sample (01/18/25 22:04) C Diff Toxin (01/18/25 22:20) Cult Urine + [address] (01/18/25 22:58) Completed Orders - ZEESHAN ACEVEDO MD Famotidine Tablet (Pepcid Tablet) (01/18/25 22:20) Ua W/Microscopic, Cult If Ind (01/18/25 22:33) Nitrofur [place]/Nitrofuran Macr (Macrobid (01/18/25 23:05) Vital Signs 01/18/25 01/18/25 17:51 22:50 Temp 98.5 Pulse 101 Resp 16 18 B/P (MAP) 154/100 Pulse Ox 97 O2 Flow Rate 0 Laboratory Tests Test 01/18/25 18:19 01/18/25 22:33 White Blood Count 13.8 H Red Blood Count 6.18 H Hemoglobin 16.8 Hematocrit 50.7 Mean Corpuscular Volume 82.1 Mean Corpuscular Hemoglobin 27.2 Mean Corpuscular Hemoglobin Concent 33.1 Red Cell Distribution Width 15.9 H Platelet Count 277 Mean Platelet Volume 7.2 L Neutrophils (%) (Auto) 73.8 Lymphocytes (%) (Auto) 20.3 L Monocytes (%) (Auto) 5.3 Eosinophils (%) (Auto) 0.5 Basophils (%) (Auto) 0.1 Neutrophils # (Auto) 10.2 H Lymphocytes # (Auto) 2.8 Monocytes # (Auto) 0.7 Eosinophils # (Auto) 0.1 Basophils # (Auto) 0.0 CBC Comment Sodium Level 140 Potassium Level 3.7 Chloride Level 108 H Carbon Dioxide Level 21.2 L Anion Gap 11 Blood Urea Nitrogen 11 Creatinine 1.22 H Estimated GFR/1.73 m2 65 BUN/Creatinine Ratio 9.0 L Glucose Level 101 Calcium Level 8.5 Total Bilirubin 0.4 Aspartate Amino Transf (AST/SGOT) 19 Alanine Aminotransferase (ALT/SGPT) 49 Alkaline Phosphatase 92 Total Protein 7.3 Albumin 3.4 Globulin 3.9 Albumin/Globulin Ratio 0.9 L Lipase 38 Chemistry Comments Urine Specimen Description Non-specified Urine Color Yellow Urine Clarity Clear Urine pH 7.0 Urine Specific [place] 1.010 Urine Protein Negative Urine Glucose (UA) Negative Urine Ketones Negative Urine Occult Blood Small Urine Nitrite Positive H Urine Bilirubin Negative Urine Urobilinogen 0.2 Urine Leukocyte Esterase Small H Urine RBC 0-2 Urine WBC 10-20 H Urine WBC Clumps Few Urine Squamous Epithelial Cells None seen Urine Bacteria 3+ Urine Culture Indicated Indicated Volume Urine Centrifuged 10 ml Urine Comment Medical Decision Making Findings Patient presented to the emergency room with multiple symptoms as per HPI. Differentials include but are not limited to viral syndrome, Clostridium difficile, dehydration, urinary tract infection therefore emergent labs and imaging indicated. Labs reassuring for no significant elevation of white blood cell count which is actually improved for from last visit and has been unable to provide a stool sample and I do not believe he was suffering from Clostridium difficile. Patient does have a urinary tract infection and as per requested Macrobid initiated. I will add small course of Pepcid to patient's Protonix. ER precautions discussed. Departure Disposition: HOME / SELF CARE / HOMELESS Impression: Primary Impression: Acute urinary tract infection Condition: Stable Discharge Instructions: Urinary Tract Infection, Adult Referrals: NO PRIMARY CARE PROVIDER (PCP) Prescriptions Nitrofurantoin Monohyd/M-Cryst (Macrobid 100 mg Capsule) 100 Mg Capsule 1 CAP PO Q12H for 10 Days, #20 CAP 0 Refills Prov: ZEESHAN ACEVEDO MD 01/18/25 Famotidine (Pepcid) 20 Mg Tablet 1 TAB PO Q12H, #14 TAB 0 Refills Prov: ZEESHAN ACEVEDO MD 01/18/25 Education Educated: Patient, Family Educated regarding: diagnosis, treatment, need for follow up Signature Scribe Signature: No scribe Attestation: The note accurately reflects work and decisions made by me.Zeeshan Acevedo MD 01/18/25 23:10 ZEESHAN ACEVEDO MD January 18, 2025 23:04
[2025-01-18] MEDS ORDERED: FAMO-129 PO (23:10)
[2025-01-18] MEDS ORDERED: NITR100C6 PO (23:10)
[2025-01-18] MEDS: nitrofuran monohydrate/nitrofuran macrocrysal 100 MG (MacroBID) capsule PO ONE (23:11)
[2025-01-18] MEDS: famotidine 20mg tablet PO ONE (23:11)
== END 2025-01-18 23:39 | disposition home or self-care (01) ==
LOC: ER 17:48
DX: N39.0 Urinary tract infection, site not specified (principal); E03.9 Hypothyroidism, unspecified; E11.22 Type 2 diabetes mellitus with diabetic chronic kidney disease; N18.9 Chronic kidney disease, unspecified; G47.30 Sleep apnea, unspecified; F32.A Depression, unspecified; F41.9 Anxiety disorder, unspecified; Z88.1 Allergy status to other antibiotic agents; Z88.2 Allergy status to sulfonamides; Z88.6 Allergy status to analgesic agent; Z88.8 Allergy status to other drugs, medicaments and biological substances
CPT/HCPCS: 36415; 80053; 81001; 83690; 85025; 87077; 87088; 87186; 99284; C1758

== ENCOUNTER 2025-05-03 23:14 | Emergency (ER) | payer MEDICARE, MEDICAID ==
[~2025-05-03] VITALS: Ht 185.4 cm; Wt 209.5 kg
[~2025-05-03 23:14] MED LIST changes: +LIDO-52 TOP; -LIDO700A32 TOP; +NITR100C6 PO
[2025-05-03 23:18] VITALS: TEMP 96.3
--- NOTE | 2025-05-03 23:22 | ELECTROCARDIOGRAPH REPORT ---
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
[2025-05-04 00:10] LABS: MEAN PLATELET VOLUME 6.9 FL (7.4-10.4); RED CELL DISTRIBUTION WIDTH 15.4 % (11.5-14.5)
[2025-05-04 00:31] LABS: CREATININE 1.65 MG/DL (0.60-1.10); TOTAL CARBON DIOXIDE 22.3 MMOL/L (24-32); eCRCL 67 ML/MIN; eGFR 46 ML/MIN
--- NOTE | 2025-05-04 00:47 | Physician Documentation ---
History of Present Illness ~ Chief Complaint: Flank Pain Stated Complaint: HEART RACING Time Seen by MD: 23:52 Primary Medical Doctor: Keren Caputo Mode of Arrival: POV HPI Patient presents to the emergency room for evaluation of left-sided back pain. History of kidney stones. Onset of symptoms yesterday. He has taken Tylenol for his symptoms as well as some baclofen. No known injury. States the area feels hard when it hurts. Pain severe enough causes him to catch his breath. No fevers Medication Reconciliation Allergies: Coded Allergies: ibuprofen (Unverified Allergy, Intermediate, swelling, 05/03/25) sulfamethoxazole (Verified Allergy, Mild, interaction with psych meds, 05/03/25) trimethoprim (Verified Allergy, Mild, interaction with psych meds, 05/03/25) mcdaniel pepper (Unverified Allergy, Unknown, 05/03/25) pt reports rash/itchiness bupropion HCl (Verified Allergy, Unknown, 05/03/25) methylphenidate HCl (Verified Allergy, Unknown, 05/03/25) pepper (genus Capsicum) (Verified Allergy, Unknown, 03/31/24) prednisone (Verified Allergy, Unknown, 03/31/24) quetiapine (Verified Allergy, Unknown, 03/31/24) sumatriptan (Verified Allergy, Unknown, paralysis, 03/31/24) ziprasidone (Unverified Allergy, Unknown, 03/31/24) zolpidem (Verified Allergy, Unknown, 03/31/24) Scheduled Apixaban (Eliquis), 1 TAB PO Q12H Asenapine Maleate (Saphris), 2 TAB SL HS, (Reported) Baclofen (Baclofen), 1 TABLET PO TID@0800,1600,2200 Cetirizine HCl (Cetirizine HCl), 1 TAB PO DAILY, (Reported) Cholecalciferol (Vitamin D3) (Vitamin D3), 2 TABLET PO DAILY, (Reported) Ertapenem Sodium (Ertapenem), 1 GM IV DAILY Famotidine (Pepcid), 1 TAB PO Q12H Levothyroxine* (Synthroid*), 1 TAB PO DAILY@0730, (Reported) Loperamide Hcl (Loperamide), 2 CAP PO Q6H Nitrofurantoin Monohyd/M-Cryst (Macrobid 100 mg Capsule), 1 CAP PO Q12H Ondansetron 8mg ODT (Ondansetron Odt), 1 TAB PO Q6H Ondansetron 8mg ODT (Ondansetron Odt), 1 TAB PO Q6H Pantoprazole Sodium (Pantoprazole Sodium), 1 TAB PO DAILY@80021 Sertraline Hcl (Zoloft), 2 TABLET PO HS, (Reported) Tamsulosin Hcl* (Flomax*), 1 TAB PO BID@1630,2200 Testosterone (Androgel), 1 PACKET TOP DAILY@1200, (Reported) Testosterone (Androgel), 1 PKT TOP DAILY@1300, (Reported) Tirzepatide (Mounjaro), 10 MG SUBCUT Q7D, (Reported) Topiramate (Topamax), 2 TABLET PO HS, (Reported) Scheduled PRN Hydroxyzine Hcl* (Atarax*), 2 TAB PO BID PRN for for anxiety/agitation, (Reported) Lidocaine (Lidoderm), 1 PATCH TOP DAILY PRN for pain, (Reported) ONDANSETRON ODT 4mg tablet (Ondansetron Odt), 1 TABLET PO Q6H PRN for NAUSEA, (Reported) Oxycodone Hcl IR* (Oxycodone IR*), 10 MG PO Q6H PRN for severe pain (7-10) Phenazopyridine Hcl (Pyridium tablet), 1 TAB PO Q8H PRN for DIFFICULT URINATION, (Reported) Past Medical History Past Medical History: Headache, Sleep Apnea, GERD, *RENAL/*, Chronic Kidney Disease, UTI, Diabetes, Hypothyroidism, Deep Vein Thrombosis, Gout, Anxiety, Depression Past Surgical History: no surgical history Patient History: FH: gallbladder disease MOTHER Alcohol Use: None Drug Use: none Lives with: Other Lives In: Assisted Care Occupation: disabled Review of Systems ROS All review of systems negative except as per HPI Physical Exam Vital Signs: Temperature: 96.3, Source: Temporal, Heart Rate: 105, Respiratory Rate: 17, BP: 135/81, Pulse Oximetry: 96, Weight: 209.500 Physical Exam General: Patient is awake, alert, oriented x4 in mild distress. Morbidly obese Head: Normocephalic and atraumatic. Eyes: Conjunctival normal. EOMI. PERRL. ENT: Mucous membranes moist. Neck: Supple, trachea is midline. Chest: Clear to auscultation bilaterally without rales, rhonchi, or wheezes. There is no accessory muscle use or retractions. Cardiac: RRR without murmurs, gallops, or rubs. Back: Tenderness to palpation to left paraspinal musculature Progress Results/Orders Results/Orders Orders - ESTEPHANIA ACEVEDO MD Ketorolac Trometh 15mg/Ml Vial (Toradol (05/04/25 03:40) Morphine 4mg/Ml Inj. (Morphine Inj.) (05/04/25 03:40) Acetaminophen Iv (05/04/25 03:40) Completed Orders - ESTEPHANIA ACEVEDO MD Electrocardiogram (05/03/25 ) Urinalysis, Cult If Indicated (05/03/25 23:24) Cbc/Diff (05/03/25 23:24) BMP (05/03/25 23:24) Lipase (05/03/25 23:24) CMP (05/03/25 23:24) Drug Screen, Urine (05/04/25 00:40) Morphine 4mg/Ml Inj. (Morphine Inj.) (05/04/25 00:55) Ondansetron Inj. (Zofran 4mg/2ml Vial) (05/04/25 00:55) Orphenadrine Citrate Inj. (Norflex Inj.) (05/04/25 00:55) Magnesium Sulf-Water 2g/50ml (Magnesium (05/04/25 00:55) Medications Received in ER Medications (Trade) Dose Ordered Sig/Thomas Route PRN Reason Start Time Stop Time Status Last Admin Dose Admin (morphine inj.) 4 mg ONCE ONCE IV 05/04/25 00:55 05/04/25 00:56 DC 05/04/25 02:01 4 MG (Zofran 4mg/2ml vial) 4 mg ONCE ONCE IV 05/04/25 00:55 05/04/25 00:56 DC 05/04/25 01:57 4 MG (Norflex inj.) 60 mg ONCE ONCE IV 05/04/25 00:55 05/04/25 00:56 DC 05/04/25 02:03 60 MG Magnesium Sulfate 50 ml @ 25 mls/hr ONCE ONCE IV 05/04/25 00:55 05/04/25 02:54 DC 05/04/25 02:05 25 MLS/HR Vital Signs 05/03/25 05/04/25 05/04/25 05/04/25 23:18 00:12 00:12 01:00 Temp 96.3 Pulse 115 105 114 Resp 25 15 17 20 B/P (MAP) 138/88 135/81 (99) 143/98 (113) Pulse Ox 98 96 94 05/04/25 05/04/25 05/04/25 05/04/25 02:01 02:01 03:08 03:20 Pulse 81 87 Resp 18 18 18 20 B/P (MAP) 170/78 (108) 162/87 (112) Pulse Ox 96 96 Laboratory Tests Test 05/03/25 23:51 05/04/25 02:11 White Blood Count 14.6 H Red Blood Count 6.34 H Hemoglobin 17.8 Hematocrit 52.5 H Mean Corpuscular Volume 82.8 Mean Corpuscular Hemoglobin 28.0 Mean Corpuscular Hemoglobin Concent 33.8 Red Cell Distribution Width 15.4 H Platelet Count 258 Mean Platelet Volume 6.9 L Neutrophils (%) (Auto) 66.9 Lymphocytes (%) (Auto) 25.2 Monocytes (%) (Auto) 6.9 Eosinophils (%) (Auto) 0.6 Basophils (%) (Auto) 0.4 Neutrophils # (Auto) 9.8 H Lymphocytes # (Auto) 3.7 Monocytes # (Auto) 1.0 H Eosinophils # (Auto) 0.1 Basophils # (Auto) 0.1 CBC Comment Sodium Level 143 Potassium Level 3.8 Chloride Level 107 Carbon Dioxide Level 22.3 L Anion Gap 14 Blood Urea Nitrogen 17 Creatinine 1.65 H Estimated GFR/1.73 m2 46 BUN/Creatinine Ratio 10.3 Glucose Level 126 H Calcium Level 9.2 Total Bilirubin 0.3 Aspartate Amino Transf (AST/SGOT) 24 Alanine Aminotransferase (ALT/SGPT) 33 Alkaline Phosphatase 101 Total Protein 7.9 Albumin 3.5 Globulin 4.4 H Albumin/Globulin Ratio 0.8 L Lipase 67 Chemistry Comments Urine Specimen Description Cln catch midstream Urine Color Yellow Urine Clarity Clear Urine pH 6.0 Urine Specific [place] 1.020 Urine Protein Negative Urine Glucose (UA) Negative Urine Ketones Negative Urine Occult Blood Negative Urine Nitrite Negative Urine Bilirubin Negative Urine Urobilinogen 0.2 Urine Leukocyte Esterase Negative Urine Culture Indicated Not ind Volume Urine Centrifuged 10 ml Urine Comment Urine Opiates Screen Negative Urine Methadone Screen Negative Urine Fentanyl Screen Negative Urine Barbiturates Screen Negative Urine Phencyclidine Screen Negative Urine Amphetamines Screen Negative Urine Benzodiazepines Screen Negative Urine Cocaine Screen Negative Urine Cannabinoids Screen Negative Drug Screen Comment EKG/XRAY/CT/US/VASC/MRI EKG : Additional Comment EKG interpreted by myself shows time of 2318, rate 141, sinus tachycardia, normal axis, no ST changes Medical Decision Making Findings Patient presents to the emergency room with back pain. Differentials include but are not limited to back spasms, aortic pathology, pyelonephritis, kidney stones. Urinalysis is negative and given physical exam I suspect back spasms and we will treat him as such. I do not feel he requires any advanced imaging given no history of falls or traumas. Departure Disposition: HOME / SELF CARE / HOMELESS Impression: Primary Impression: Strain of lumbar region Condition: Stable Discharge Instructions: Lumbosacral Strain Referrals: NO PRIMARY CARE PROVIDER (PCP) Prescriptions Cyclobenzaprine* (Cyclobenzaprine*) 10 Mg Tablet 1 TAB PO Q8H for muscle spasms for 10 Days, #30 TAB 0 Refills Prov: ESTEPHANIA ACEVEDO MD 05/04/25 Hydrocodone Bit/Acetaminophen 5/325 MG ([place] 5/325 MG) 5 Mg/325 Mg Tablet 1-2 TAB PO Q4-6 hours PRN for pain, #20 TAB Prov: ESTEPHANIA ACEVEDO MD 05/04/25 Education Educated: Patient Educated regarding: diagnosis, treatment, need for follow up Signature Scribe Signature: No scribe Attestation: The note accurately reflects work and decisions made by me.Estephania Acevedo MD 05/04/25 03:40 ESTEPHANIA ACEVEDO MD May 04, 2025 00:47
[2025-05-04] MEDS: ondansetron/PF 4mg/2ml inj IV ONE (01:57)
[2025-05-04] MEDS: morphine 4 MG/ML inj SYRINge IV ONE ×2 (02:01→03:57)
[2025-05-04] MEDS: orphenadrine citrate 60mg/2ml inj. IV ONE (02:03)
[2025-05-04] MEDS: magnesium sulf-water 2g/50mL 50 ML IV ONE (02:05)
[2025-05-04 02:50] LABS: LEUKOCYTE ESTERASE ,URINE NEGATIVE (Neg); NITRITES, URINE NEGATIVE (Neg); OCCULT BLOOD,URINE NEGATIVE (Neg)
[2025-05-04 03:07] LABS: UA COLLECTION TYPE CLN CATCH MIDSTREAM
[2025-05-04 03:08] VITALS: BP 162/87
[2025-05-04 03:20] LABS: URINE AMPHETAMINE SCREEN NEGATIVE (Neg); URINE BARBITUATE SCREEN NEGATIVE (Neg); URINE BENZODIAZEPINES SCREEN NEGATIVE (Neg); URINE CANNABINOID SCREEN NEGATIVE (Neg); URINE COCAINE SCREEN NEGATIVE (Neg); URINE METHADONE SCREEN NEGATIVE (Neg); URINE OPIATE SCREEN NEGATIVE (Neg); URINE PHENCYCLIDINE SCREEN NEGATIVE (Neg)
[2025-05-04] MEDS ORDERED: CYCL-1 PO (03:40)
[2025-05-04] MEDS ORDERED: HYDR-3965 PO (03:40)
[2025-05-04] MEDS: ketorolac trometh 15mg/ml vial 15 MG/ML ML IV ONE (03:59)
[2025-05-04] MEDS: acetaminophen 1,000mg/100ml IV 100 ML IV ONE (04:01)
[2025-05-04 04:08] VITALS: O2SAT 97
[2025-05-04] MEDS: ondansetron/PF 4mg/2ml inj IV STA (04:08)
[2025-05-04 05:29] VITALS: PULSE 88; RESP 20
== END 2025-05-04 05:31 | disposition home or self-care (01) ==
LOC: ER 23:14
DX: S39.012A Strain of muscle, fascia and tendon of lower back, initial encounter (principal); E03.9 Hypothyroidism, unspecified; E11.22 Type 2 diabetes mellitus with diabetic chronic kidney disease; G47.30 Sleep apnea, unspecified; M10.9 Gout, unspecified; N18.9 Chronic kidney disease, unspecified; K21.9 Gastro-esophageal reflux disease without esophagitis; Z86.718 Personal history of other venous thrombosis and embolism; Z87.440 Personal history of urinary (tract) infections; Z87.442 Personal history of urinary calculi; Z88.1 Allergy status to other antibiotic agents; Z88.2 Allergy status to sulfonamides; Z88.6 Allergy status to analgesic agent; Z88.8 Allergy status to other drugs, medicaments and biological substances; X58.XXXA Exposure to other specified factors, initial encounter; Y93.89 Activity, other specified; Y92.89 Other specified places as the place of occurrence of the external cause; Y99.8 Other external cause status
CPT/HCPCS: 36415; 80053; 80305; 81003; 83690; 85025; 93005; 96365; 96367; 96375; 96376; 99285; J0131; J1885; J2270; J2360; J2405

== ENCOUNTER 2025-05-25 15:03 | Emergency (ER) | payer MEDICARE, MEDICAID ==
[~2025-05-25] VITALS: Ht 185.4 cm; Wt 214.1 kg
[~2025-05-25 15:03] MED LIST changes: -BACL20TA PO; -CETI10TA14 PO; +CHERRY FLEX; +DOXY-224 PO; -ERTA1VIA4 IV; -FAMO-128 PO; +FAMO-129 PO; +FERR18CA; -HYDR-3717 PO; +LACT1CAP75 PO; -LIDO-52 TOP; -LOPE2CAP PO; +MAGN500C4 PO; -NITR100C6 PO; -ONDA-243 PO; -ONDA-245 PO; -OXYC-658 PO; -PHEN-786 PO; -TIRZ10PE SUBCUT; +UBRO100T
[2025-05-25 15:46] LABS: MEAN PLATELET VOLUME 6.8 FL (7.4-10.4); RED CELL DISTRIBUTION WIDTH 15.3 % (11.5-14.5)
[2025-05-25 16:01] LABS: CREATININE 1.82 MG/DL (0.60-1.10); TOTAL CARBON DIOXIDE 22.1 MMOL/L (24-32); eCRCL 60 ML/MIN; eGFR 41 ML/MIN
[2025-05-25 17:39] LABS: LEUKOCYTE ESTERASE ,URINE NEGATIVE (Neg); NITRITES, URINE NEGATIVE (Neg); OCCULT BLOOD,URINE NEGATIVE (Neg)
[2025-05-25 17:47] LABS: UA COLLECTION TYPE VOIDED
[2025-05-25 17:48] LABS: MUCUS STRANDS FEW /LPF (Neg); SQUAMOUS EPITHELIAL CELL,UR MODERATE /LPF (FEW)
--- NOTE | 2025-05-25 19:50 | Physician Documentation ---
History of Present Illness General Chief Complaint: Urinary Symptoms Stated Complaint: MED REQUEST Time Seen by MD: 19:50 Primary Medical Doctor: Keren Caputo History of Present Illness Initial Comments The patient is a 39-year-old male who was recently admitted to the hospital after a syncopal event and the patient was also found to be in some acute kidney injury during his admission. The patient's urine from admission demonstrated three organisms growing in his urine. The patient's caregiver presents today asking for Cipro and Augmentin for urinary tract infection. Patient complains of diffuse abdominal pain that has been continuous since he was discharged on the . No fevers chills nausea or vomiting patient's symptoms are moderate and persistent. The patient's caregiver is requesting a prescription for Cipro and Augmentin. Medication Reconciliation Allergies: Coded Allergies: ibuprofen (Unverified Allergy, Intermediate, swelling, 05/03/25) sulfamethoxazole (Verified Allergy, Mild, interaction with psych meds, 05/03/25) trimethoprim (Verified Allergy, Mild, interaction with psych meds, 05/03/25) mcdaniel pepper (Unverified Allergy, Unknown, 05/03/25) pt reports rash/itchiness bupropion HCl (Verified Allergy, Unknown, 05/03/25) methylphenidate HCl (Verified Allergy, Unknown, 05/03/25) pepper (genus Capsicum) (Verified Allergy, Unknown, 03/31/24) prednisone (Verified Allergy, Unknown, 03/31/24) quetiapine (Verified Allergy, Unknown, 03/31/24) sumatriptan (Verified Allergy, Unknown, paralysis, 03/31/24) ziprasidone (Unverified Allergy, Unknown, 03/31/24) zolpidem (Verified Allergy, Unknown, 03/31/24) Scheduled Amox Tr/Potassium Clavulanate 875/125 MG (Augmentin 875/125 MG), 1 TAB PO BID Apixaban (Eliquis), 1 TAB PO Q12H, (Reported) Asenapine Maleate (Saphris), 2 TAB SL HS, (Reported) Cholecalciferol (Vitamin D3) (Vitamin D3), 2 TABLET PO DAILY, (Reported) Ciprofloxacin HCl (Ciprofloxacin HCl), 1 TAB PO BID Doxycycline Hyclate (Doxycycline Hyclate), 1 CAP PO BID, (Reported) Famotidine (Pepcid), 1 TAB PO Q12H, (Reported) Lactobacillus Combo No.10 (Probiotic), 1 TAB PO DAILY, (Reported) Levothyroxine* (Synthroid*), 1 TAB PO DAILY@0730, (Reported) Pantoprazole Sodium (Pantoprazole Sodium), 1 TAB PO DAILY@66849 Sertraline Hcl (Zoloft), 2 TABLET PO HS, (Reported) Tamsulosin Hcl* (Flomax*), 1 CAP PO BID, (Reported) Testosterone (Androgel), 1 PACKET TOP DAILY@1200, (Reported) Topiramate (Topamax), 2 TABLET PO HS, (Reported) Miscellaneous Medications Ferrous Gluconate (Iron), (Reported) Magnesium Oxide (Magnesium), 500 MG PO, (Reported) Ubrogepant (Ubrelvy), (Reported) [Hicks Flex], (Reported) Past Medical History Past Medical History: Headache, Sleep Apnea, GERD, *RENAL/*, Chronic Kidney Disease, UTI, Diabetes, Hypothyroidism, Deep Vein Thrombosis, Gout, Anxiety, Depression Past Surgical History: no surgical history Smoking: Cigarettes Alcohol Use: None Drug Use: none Lives with: Other Lives In: Assisted Care Occupation: disabled Review of Systems All Other Systems at this time: Reviewed and Negative Physical Exam Physical Exam Vital Signs: Temperature: 97.9, Source: Oral, Heart Rate: 116, Respiratory Rate: 16, BP: 152/97, Pulse Oximetry: 95, Weight: 214.100 Oxygen Flow Rate: 0 Physical Exam VITALS: Reviewed and as above. GENERAL: Alert, no apparent distress. Large BMI HEENT: Normocephalic, atraumatic, PERRL, EOMI, dry mucosa, no erythema RESPIRATORY: Lungs clear, normal breath sounds, no respiratory distress. CHEST: No accessory muscle use, no retractions CV: Tachycardic rate rate, rhythm, no edema, no murmur, No: JVD GI: Soft, slight diffuse abdominal tenderness bowels sounds present, no rebound, guarding, or rigidity BACK: No CVA tenderness, or swelling MUSCULOSKELETAL: No deformities, no edema SKIN: Warm and dry, no rash NEURO: Oriented x4, No motor or sensory deficit PSYCH: Normal mood and affect, no agitation Progress Results/Orders Results/Orders Completed Orders - OHLFS,SHY Powell MD Procalcitonin (05/25/25 19:07) Ceftriaxone 2gm/D5w 50ml Bag (Rocephin 2 (05/25/25 20:00) Ciprofloxacin Tablet (Cipro Tablet) (05/25/25 20:00) Normal Saline 1000ml (0.9% Sodium Chlori (05/25/25 20:00) Acetaminophen 1,000mg/100ml Iv (Ofirmev (05/25/25 20:00) Morphine 4mg/Ml Inj. (Morphine Inj.) (05/25/25 20:00) Ondansetron Inj. (Zofran 4mg/2ml Vial) (05/25/25 20:00) Ceftriaxone Im Kit W/Lidocaine (Rocephin (05/25/25 22:45) Medications Received in ER Medications (Trade) Dose Ordered Sig/Thomas Route PRN Reason Start Time Stop Time Status Last Admin Dose Admin Ceftriaxone Sodium/Dextrose 50 ml @ 100 mls/hr ONCE ONCE IV 05/25/25 20:00 05/25/25 20:29 DC 05/25/25 20:49 100 MLS/HR (Cipro tablet) 500 mg ONCE ONCE PO 05/25/25 20:00 05/25/25 20:01 DC 05/25/25 20:50 500 MG (0.9% sodium chloride (NS) 1000ml IV soln) 1,000 ml ONCE ONCE IVB 05/25/25 20:00 05/25/25 20:01 DC 05/25/25 20:49 1,000 ML Acetaminophen 100 ml @ 400 mls/hr ONCE ONCE IV 05/25/25 20:00 05/25/25 20:14 DC 05/25/25 20:49 400 MLS/HR (morphine inj.) 4 mg ONCE ONCE IV 05/25/25 20:00 05/25/25 20:01 DC 05/25/25 20:48 4 MG (Zofran 4mg/2ml vial) 4 mg ONCE ONCE IV 05/25/25 20:00 05/25/25 20:02 DC 05/25/25 20:49 4 MG (Rocephin 1GM IM kit (w/lidocaine diluent)) 1,000 mg ONCE ONCE IM 05/25/25 22:45 05/25/25 22:55 DC 05/25/25 23:10 1,000 MG Vital Signs 05/25/25 05/25/25 05/25/25 05/25/25 15:12 19:32 19:58 20:48 Temp 97.9 Pulse 112 116 Resp 18 16 16 17 B/P (MAP) 168/101 152/97 (115) Pulse Ox 96 95 O2 Flow Rate 0 0 05/25/25 23:16 Temp 98.2 Pulse 85 Resp 16 B/P (MAP) 154/103 Pulse Ox 99 Laboratory Tests Test 05/25/25 15:27 05/25/25 17:00 White Blood Count 12.5 H Red Blood Count 6.46 H Hemoglobin 17.7 Hematocrit 54.1 H Mean Corpuscular Volume 83.7 Mean Corpuscular Hemoglobin 27.5 Mean Corpuscular Hemoglobin Concent 32.8 L Red Cell Distribution Width 15.3 H Platelet Count 284 Mean Platelet Volume 6.8 L Neutrophils (%) (Auto) 68.6 Lymphocytes (%) (Auto) 23.1 Monocytes (%) (Auto) 7.1 Eosinophils (%) (Auto) 0.6 Basophils (%) (Auto) 0.6 Neutrophils # (Auto) 8.6 H Lymphocytes # (Auto) 2.9 Monocytes # (Auto) 0.9 Eosinophils # (Auto) 0.1 Basophils # (Auto) 0.1 CBC Comment Sodium Level 144 Potassium Level 3.9 Chloride Level 110 H Carbon Dioxide Level 22.1 L Anion Gap 12 Blood Urea Nitrogen 22 H Creatinine 1.82 H Estimated GFR/1.73 m2 41 BUN/Creatinine Ratio 12.1 Glucose Level 147 H Calcium Level 8.9 Total Bilirubin 0.5 Aspartate Amino Transf (AST/SGOT) 18 Alanine Aminotransferase (ALT/SGPT) 33 Alkaline Phosphatase 105 Total Protein 8.2 Albumin 3.5 Globulin 4.7 H Albumin/Globulin Ratio 0.7 L Lipase 48 Procalcitonin < 0.05 Chemistry Comments Urine Specimen Description Voided Urine Color Yellow Urine Clarity Clear Urine pH 6.0 Urine Specific [place] >=1.030 Urine Protein Trace Urine Glucose (UA) Negative Urine Ketones Negative Urine Occult Blood Negative Urine Nitrite Negative Urine Bilirubin Negative Urine Urobilinogen 0.2 Urine Leukocyte Esterase Negative Urine RBC 3-10 Urine WBC 10-20 H Urine Squamous Epithelial Cells Moderate Urine Transitional Epithelial Cells Few Urine Bacteria 2+ Urine Mucus Few Urine Culture Indicated Indicated Volume Urine Centrifuged 10 ml Urine Comment Microbiology Date/Time Source Procedure Growth Status 05/25/25 17:49 Urine Voided Urine Culture - Preliminary Culture received. Resulted Medical Decision Making Findings Patient with the urine culture which demonstrates three-organisms they will be covered by Cipro and Augmentin patient was slightly tachycardic and uncomfortable so he was given a dose of morphine as well as a 2 g dose of ceft riaxone IV fluids as well and a g of Tylenol IV patient's prior hospitalizations have been reviewed all a urine cultures have been reviewed the patient's pulse oximetry was interpreted as normal the patient's diagnostic cardiac sonographer was interpreted as a sinus tachycardia. The patient will have two weeks of antibiotics written for the patient had some improvement after treatment the patient will be discharged. Departure Disposition: HOME / SELF CARE / HOMELESS Impression: Primary Impression: Acute urinary tract infection Discharge Instructions: Urinary Tract Infection, Adult Referrals: NO PRIMARY CARE PROVIDER (PCP) Prescriptions Amox Tr/Potassium Clavulanate 875/125 MG (Augmentin 875/125 MG) 875 Mg-125 Mg Tablet 1 TAB PO BID, #24 TAB Prov: SHY MOSES MD 05/25/25 Ciprofloxacin HCl (Ciprofloxacin HCl) 500 Mg Tab 1 TAB PO BID, #28 TAB Prov: SHY MOSES MD 05/25/25 Signature Scribe Signature: no scribe Attestation: The note accurately reflects work and decisions made by me.Shy Moses MD 05/26/25 03:34 SHY MOSES MD May 25, 2025 19:50
[2025-05-25] MEDS ORDERED: CIPR-458 PO (20:05)
[2025-05-25] MEDS ORDERED: AMOX-580 PO (20:05)
[2025-05-25] MEDS: morphine 4 MG/ML inj SYRINge IV ONE (20:48)
[2025-05-25] MEDS: CefTRIAXone 2gm/D5W 50ml BAG 50 ML IV ONE (20:49)
[2025-05-25] MEDS: ondansetron/PF 4mg/2ml inj IV ONE (20:49)
[2025-05-25] MEDS: acetaminophen 1,000mg/100ml IV 100 ML IV ONE (20:49)
[2025-05-25] MEDS: normal saline 1000ML IV soln IVB ONE (20:49)
[2025-05-25] MEDS: ciprofloxacin 250mg tablet PO ONE (20:50)
[2025-05-25] MEDS: CefTRIAXone 1000mg IM Kit (w/lidocaine diluent) IM ONE (23:10)
[2025-05-25 23:16] VITALS: BP 154/103; PULSE 85; RESP 16; TEMP 98.2; O2SAT 99
== END 2025-05-25 23:29 | disposition home or self-care (01) ==
LOC: ER 15:04
DX: N39.0 Urinary tract infection, site not specified (principal); E03.9 Hypothyroidism, unspecified; G47.30 Sleep apnea, unspecified; E11.22 Type 2 diabetes mellitus with diabetic chronic kidney disease; N18.9 Chronic kidney disease, unspecified; K21.9 Gastro-esophageal reflux disease without esophagitis; F41.9 Anxiety disorder, unspecified; F32.A Depression, unspecified; F17.210 Nicotine dependence, cigarettes, uncomplicated; Z86.718 Personal history of other venous thrombosis and embolism; Z87.440 Personal history of urinary (tract) infections; Z88.2 Allergy status to sulfonamides; Z88.8 Allergy status to other drugs, medicaments and biological substances; Z79.899 Other long term (current) drug therapy
CPT/HCPCS: 36415; 80053; 81001; 83690; 84145; 85025; 87077; 87088; 87186; 96372; 96374; 96375; 99284; J0131; J0696; J2270; J2405; J7030; 96365; 96366; 96368

== ENCOUNTER 2025-06-12 23:45 | Inpatient (IN) | payer MEDICARE, MEDICAID ==
[~2025-06-12] VITALS: Ht 185.4 cm; Wt 225.9 kg
[~2025-06-12 23:45] MED LIST changes: +AMOX-580 PO; +CIPR-458 PO
[2025-06-13] VITALS (7 sets, daily range): BP systolic 98–120; BP diastolic 62–71; PULSE 71–80; RESP 11–19; TEMP 97.3–97.9; O2SAT 94–98
[2025-06-13 00:58] LABS: MEAN PLATELET VOLUME 6.7 FL (7.4-10.4); RED CELL DISTRIBUTION WIDTH 15.3 % (11.5-14.5)
[2025-06-13 01:15] LABS: CREATININE 1.50 MG/DL (0.60-1.10); TOTAL CARBON DIOXIDE 23.5 MMOL/L (24-32); eCRCL 73 ML/MIN; eGFR 52 ML/MIN
--- NOTE | 2025-06-13 01:19 | Physician Documentation ---
History of Present Illness ~ Chief Complaint: See Chief Complaint Stated Complaint: SEIZURE Time Seen by MD: 01:12 Primary Medical Doctor: Keren Caputo Mode of Arrival: EMS HPI Patient presents to the emergency room for evaluation altered mental status in his seizure-like activity. Patient has history of Klinefelter's. Over the past month patient has been admitted and diagnosed with a urinary tract infection and also had some imaging done that has unable to get an MRI performed as patient is too large. MRI scheduled for a proximally one month from now. Today he had began complaining of headache follow up by seizure-like activity for which pleating supervisor has show me a video and although that has communicative that has pr oblems speaking at this juncture. Medication Reconciliation Allergies: Coded Allergies: ibuprofen (Unverified Allergy, Intermediate, swelling, 05/03/25) sulfamethoxazole (Verified Allergy, Mild, interaction with psych meds, 05/03/25) trimethoprim (Verified Allergy, Mild, interaction with psych meds, 05/03/25) mcdaniel pepper (Unverified Allergy, Unknown, 05/03/25) pt reports rash/itchiness bupropion HCl (Verified Allergy, Unknown, 05/03/25) methylphenidate HCl (Verified Allergy, Unknown, 05/03/25) pepper (genus Capsicum) (Verified Allergy, Unknown, 03/31/24) prednisone (Verified Allergy, Unknown, 03/31/24) quetiapine (Verified Allergy, Unknown, 03/31/24) sumatriptan (Verified Allergy, Unknown, paralysis, 03/31/24) ziprasidone (Unverified Allergy, Unknown, 03/31/24) zolpidem (Verified Allergy, Unknown, 03/31/24) Uncoded Allergies: AMOXICILLAN (Allergy, Unknown, 06/12/25) Scheduled Amox Tr/Potassium Clavulanate 875/125 MG (Augmentin 875/125 MG), 1 TAB PO BID Apixaban (Eliquis), 1 TAB PO Q12H, (Reported) Asenapine Maleate (Saphris), 2 TAB SL HS, (Reported) Cholecalciferol (Vitamin D3) (Vitamin D3), 2 TABLET PO DAILY, (Reported) Ciprofloxacin HCl (Ciprofloxacin HCl), 1 TAB PO BID Doxycycline Hyclate (Doxycycline Hyclate), 1 CAP PO BID, (Reported) Famotidine (Pepcid), 1 TAB PO Q12H, (Reported) Lactobacillus Combo No.10 (Probiotic), 1 TAB PO DAILY, (Reported) Levothyroxine* (Synthroid*), 1 TAB PO DAILY@0730, (Reported) Pantoprazole Sodium (Pantoprazole Sodium), 1 TAB PO DAILY@23012 Sertraline Hcl (Zoloft), 2 TABLET PO HS, (Reported) Tamsulosin Hcl* (Flomax*), 1 CAP PO BID, (Reported) Testosterone (Androgel), 1 PACKET TOP DAILY@1200, (Reported) Topiramate (Topamax), 2 TABLET PO HS, (Reported) Miscellaneous Medications Ferrous Gluconate (Iron), (Reported) Magnesium Oxide (Magnesium), 500 MG PO, (Reported) Ubrogepant (Ubrelvy), (Reported) [Hicks Flex], (Reported) Past Medical History Past Medical History: Headache, Sleep Apnea, GERD, *RENAL/*, Chronic Kidney Disease, UTI, Diabetes, Hypothyroidism, Deep Vein Thrombosis, Gout, Anxiety, Depression Past Surgical History: no surgical history Patient History: FH: gallbladder disease MOTHER Alcohol Use: None Drug Use: none Lives with: Other Lives In: Assisted Care Occupation: disabled Physical Exam Vital Signs: Temperature: 98.7, Source: Oral, Heart Rate: 86, Respiratory Rate: 18, BP: 117/75, Pulse Oximetry: 97, Weight: 225.910 Oxygen Flow Rate: 0 Progress Results/Orders Results/Orders Orders - ZEESHAN ACEVEDO MD Urinalysis, Cult If Indicated (06/13/25 00:46) Straight Cath For Urine Sample (06/13/25 00:46) Completed Orders - ZEESHAN ACEVEDO MD Cbc/Diff (06/13/25 00:46) Lipase (06/13/25 00:46) CMP (06/13/25 00:46) Vital Signs 06/12/25 06/13/25 06/13/25 06/13/25 23:51 00:00 01:04 01:04 Temp 98.7 98.7 Pulse 91 91 86 Resp 25 20 18 23 B/P (MAP) 145/79 145/79 (101) 117/75 (89) Pulse Ox 95 96 97 O2 Flow Rate 0 0 06/13/25 01:51 Pulse 88 Resp 24 B/P (MAP) 134/86 (102) Pulse Ox 96 O2 Flow Rate 0 Laboratory Tests Test 06/13/25 00:03 White Blood Count 11.0 Red Blood Count 5.52 Hemoglobin 15.6 Hematocrit 46.0 Mean Corpuscular Volume 83.4 Mean Corpuscular Hemoglobin 28.2 Mean Corpuscular Hemoglobin Concent 33.8 Red Cell Distribution Width 15.3 H Platelet Count 270 Mean Platelet Volume 6.7 L Neutrophils (%) (Auto) 62.0 Lymphocytes (%) (Auto) 29.7 Monocytes (%) (Auto) 7.0 Eosinophils (%) (Auto) 0.9 Basophils (%) (Auto) 0.4 Neutrophils # (Auto) 6.8 Lymphocytes # (Auto) 3.3 Monocytes # (Auto) 0.8 Eosinophils # (Auto) 0.1 Basophils # (Auto) 0.0 CBC Comment Sodium Level 144 Potassium Level 4.3 Chloride Level 111 H Carbon Dioxide Level 23.5 L Anion Gap 10 Blood Urea Nitrogen 24 H Creatinine 1.50 H Estimated GFR/1.73 m2 52 BUN/Creatinine Ratio 16.0 Glucose Level 102 Calcium Level 8.4 L Total Bilirubin 0.3 Aspartate Amino Transf (AST/SGOT) 15 Alanine Aminotransferase (ALT/SGPT) 31 Alkaline Phosphatase 87 Total Protein 7.0 Albumin 2.9 L Globulin 4.1 Albumin/Globulin Ratio 0.7 L Lipase 78 H Chemistry Comments Medical Decision Making Findings Patient presents to the emergency room for evaluation of seizure-like activity and altered mental status. Differentials were vas. Consulted with tele neurology recommends EEG. Hopefully we can get an MRI facilitated Departure Admitted to Inpatient Unit: yes, to hospitalist Impression: Primary Impression: Altered mental status Referrals: NO PRIMARY CARE PROVIDER (PCP) Signature Scribe Signature: No scribe Attestation: The note accurately reflects work and decisions made by me.Zeeshan Acevedo MD 06/13/25 02:11 ZEESHAN ACEVEDO MD Jun 13, 2025 01:19
--- NOTE | 2025-06-13 02:12 | CONSULTATION REPORT ---
History of Present Illness Providers to CC ~ Refering MD: Keren Caputo Allergies: Coded Allergies: ibuprofen (Unverified Allergy, Intermediate, swelling, 05/03/25) sulfamethoxazole (Verified Allergy, Mild, interaction with psych meds, 05/03/25) trimethoprim (Verified Allergy, Mild, interaction with psych meds, 05/03/25) mcdaniel pepper (Unverified Allergy, Unknown, 05/03/25) pt reports rash/itchiness bupropion HCl (Verified Allergy, Unknown, 05/03/25) methylphenidate HCl (Verified Allergy, Unknown, 05/03/25) pepper (genus Capsicum) (Verified Allergy, Unknown, 03/31/24) prednisone (Verified Allergy, Unknown, 03/31/24) quetiapine (Verified Allergy, Unknown, 03/31/24) sumatriptan (Verified Allergy, Unknown, paralysis, 03/31/24) ziprasidone (Unverified Allergy, Unknown, 03/31/24) zolpidem (Verified Allergy, Unknown, 03/31/24) Uncoded Allergies: AMOXICILLAN (Allergy, Unknown, 06/12/25) Home Medications Home Medications Active Augmentin 875/125 MG (Amoxicillin/Clavulanate Potassium) 875 Mg-125 Mg Tablet 1 Tab PO BID Ciprofloxacin HCl (Ciprofloxacin) 500 Mg Tab 1 Tab PO BID Pantoprazole Sodium 40 Mg Tablet.dr 1 Tab PO DAILY@47385 30 Days Reported Flomax* (Tamsulosin HCl) 0.4 Mg Cap.sr.24h 1 Cap PO BID 30 Days Pepcid (Famotidine) 20 Mg Tablet 1 Tab PO Q12H 30 Days Eliquis (Apixaban) 5 Mg Tablet 1 Tab PO Q12H 30 Days [Hicks Flex] Magnesium (Magnesium Oxide) 500 Mg Capsule 500 Mg PO Probiotic (Lactobacillus Combo No.10) 20 Billion Cell Capsule 1 Tab PO DAILY 30 Days Iron (Ferrous Gluconate) 18 Mg Iron Capsule Ubrelvy (Ubrogepant) 100 Mg Tablet Doxycycline Hyclate 100 Mg Capsule 1 Cap PO BID Saphris (Asenapine Maleate) 10 Mg Tab.subl 2 Tab SL HS Androgel (Testosterone) 40.5 Mg/2.5 Gram (1.62 %) Gel.packet 1 Packet TOP DAILY@1200 NURSE TO APPLY TO RIGHT SHOULDER AND RUB IN WELL TAKES TWO PACKETS 1 HR APART Synthroid* (Levothyroxine Sodium) 175 Mcg Tab 1 Tab PO DAILY@0730 Vitamin D3 (Cholecalciferol (Vitamin D3)) 1,000 Unit Tablet 2 Tablet PO DAILY Zoloft (Sertraline Hcl) 100 Mg Tablet 2 Tablet PO HS Topamax (Topiramate) 100 Mg Tablet 2 Tablet PO HS Past Family History Family History: FH: gallbladder disease MOTHER Physical Exam Last Vital Signs Recorded: Temperature: 98.7, Source: Oral, Heart Rate: 88, Respiratory Rate: 24, BP: 134/86, Pulse Oximetry: 96, Weight: 225.910 Results Diagram Lab Result Diagram: 06/13/25 0003 06/13/25 0003 Assessment/Plan Additional Plan [facility] Note # Demographics Consult Type: General Neurology Patient Location: Emergency Room First Name: Alejandro Last Name: Joaquin Date of : 1985 Age: 39 Gender: Male Facility: [facility] Time of Initial Page (): 06/13/2025 01:29 First Contact with Site (): 06/13/2025 01:30 # HPI Chief Complaint: - abnormal movements History: 39 y/o M with AMS, possible seizure activity earlier this evening. Also had a headache. Unable to get brain MRI inpatient due to body habitus. Patient using sign language. Patient first event was on 05/14--didn't know who or where he was for 7 days. Recognizes mom only by her saying something like "I wish I could take your pain away." Event tonight different from prior incident. Today had a doctor's appointment for being emotional, short, agitated. He was feeling claustrophobic and agitated after being told he needed to stop smoking. Was told about medication changes and then asked questions about his home and when he was last happy. Then suddenly looked like he was going out of it--eyes closed. Then noticed hand movements described as tremor. He then sat forward and lost consciousness with eyes rolling back, shivering. Family then says he is emotional and overwhelmed. Speech then was stuttering. Then abnormal mentation/movement event occurred again. Did have an EEG on 05/14. Not on seizure medications. Now is not moving his body well which is new for him. # Scores Time of exam and NIHSS (): 06/13/2025 01:44 Level of Consciousness 1a: [0] = Alert; keenly responsive LOC Questions 1b: [0] = Answers both questions correctly LOC Commands 1c: [0] = Performs both tasks correctly Best Gaze 2: [1] = Partial gaze palsy Visual 3: [0] = No visual loss Facial Palsy 4: [0] = Normal symmetrical movements Motor Arm Left 5a: [0] = No drift Motor Arm Right 5b: [2] = Some effort against gravity Motor Leg Left 6a: [0] = No drift Motor Leg Right 6b: [0] = No drift Limb Ataxia 7: [0] = Absent Sensory 8: [0] = Normal Best Language 9: [3] = Mute Dysarthria 10: [0] = Normal Extinction and Inattention 11: [0] = No abnormality NIHSS Total: 6 # Exam Additional Neurologic Exam: Video of event---patient closes eyes, breathing becomes louder, right arm across chest, thumb moving quickly and rhythmically. # Assessment Impression: - Altered Mental Status Abnormal movements--stereotyped events raise question of seizure # Plan Thrombolytic/Intervention: NOT IV Thrombolysis or IA Intervention candidate Imaging: (urgency: routine): MRI brain with and without gadolinium planned Diagnostic Test: - EEG Future testing may consider lumbar puncture for routine studies + paraneoplastic panel including NMDA antibody and potentially prolonged EEG for event characterization Other: - If patient has any neurological deterioration please call me back immediately - I have discussed my recommendations with the referring provider # Logistics Attestation of consult completion: The patient is located at: [facility]. Facility staff participated in the visit. I performed this telemedicine visit from my offsite office utilizing interactive 2 way audio and visual telecommunication technology at the request of the onsite emergency room provider. Total time spent in telemedicine encounter: I spent 25 minutes reviewing clinical data and/or imaging, obtaining history, examining the patient, communicating with the onsite care team, and in preparation of this report. # Demographics First Name: Alejandro Last Name: Joaquin Facility: [facility] VINCENZO VARGAS MD Jun 13, 2025 02:12
[2025-06-13] MEDS ORDERED: potassium Cl 40MEQ/1/2NS 520ml 520 ML IV PRN (03:50)
[2025-06-13] MEDS ORDERED: HYDROmorphone/PF 0.2 MG/ML SYRINGE IV PRN (03:50)
[2025-06-13] MEDS ORDERED: magnesium Cl slow-release 64mg tablet PO PRN (03:50)
[2025-06-13] MEDS ORDERED: magnesium sulf-water 4G/100mL 100 ML IV PRN (03:50)
[2025-06-13] MEDS ORDERED: magnesium sulf-water 2g/50mL 50 ML IV PRN (03:50)
[2025-06-13] MEDS ORDERED: potassium Cl 20 mEq SR tablet PO PRN ×2 (03:50)
[2025-06-13 04:21] LABS: LEUKOCYTE ESTERASE ,URINE NEGATIVE (Neg); NITRITES, URINE NEGATIVE (Neg); OCCULT BLOOD,URINE NEGATIVE (Neg)
[2025-06-13 04:22] LABS: UA COLLECTION TYPE CLN CATCH MIDSTREAM
--- NOTE | 2025-06-13 04:27 | RADIOLOGY REPORT ---
EXAM: CT CT HEAD INDICATION: seizure TECHNIQUE: CT of the head without intravenous contrast. Radiation Dose : 1. Head: CT Dose: CTDI volume is 68.15 mGy. Dose-length product is 1353.33 mGy*cm The dose indicators for CT are the volume Computed Tomography (CT) Dose Index (CTDIvol) and the Dose Length Product (DLP), and are measured in units of mGy and mGy-cm, respectively. These indicators are not patient dose, but values generated from the CT scanner acquisition factors. The report includes radiation exposure data for exposures received during this examination. COMPARISON: CT CT HEAD on DOS: 05/15/25, CT CHEST ABDOMEN PELVIS on DOS: 12/26/22 FINDINGS: There is no evidence of acute intracranial hemorrhage, extra-axial collection, mass effect, midline shift, herniation or hydrocephalus. The ventricles, sulci and cisterns are age appropriate. The chavez-white differentiation is intact. The visualized paranasal sinuses and mastoid air cells are clear. The surrounding soft tissues and osseous structures are unremarkable. IMPRESSION: 1. No evidence of acute intracranial abnormality. Radiation optimization: All CT scans at this facility use at least one of these dose optimization techniques: automated exposure control mA and/or kV adjustment per patient size (includes targeted exams where dose is matched to clinical indication) or iterative reconstruction.
[2025-06-13] MEDS ORDERED: METH1TAB69 PO (04:34)
[2025-06-13] MEDS ORDERED: TIRZ15PE SQ (04:34)
[2025-06-13] MEDS ORDERED: BACL20TA PO (04:34)
[2025-06-13] MEDS ORDERED: HYDR-3686 PO (04:34)
[2025-06-13] MEDS ORDERED: FAMO20PI2 (04:37)
--- NOTE | 2025-06-13 05:13 | HISTORY AND PHYSICAL-Residence ---
History & Physical Providers to CC Resident Creating Document: ENCHANDLER, RES ~ History of Present Illness Primary Medical Doctor: Keren Caputo Reason for Admit\Complaint: seizure like activity History of Present Illness History was obtained from the patients mother (Rabia Davalos, POA [phone]) and caregiver (Maribel Navarrete [phone]), as the patient communicates mostly through sign language and is intermittently verbal. A 39-year-old male with a complex past medical history including Klinefelter syndrome (on testosterone), morbid obesity (BMI >60), developmental delay, ALVINO on CPAP, bipolar disorder, CKD stage 3, type 2 diabetes (on Mounjaro), hypothyroidism, GERD, chronic pain syndrome, BPH, and history of DVT (on Eliquis). He was previously admitted on 05/15/25 for multiple transient loss of consciousness episodes characterized by blank staring, confusion, slurred speech, and transient apnea with cyanosis. At that time, there was concern for seizure activity, though no tonic-clonic activity, tongue biting, or incontinence was observed. EEG and brain imaging were ordered, but MRI could not be performed due to body habitus. He improved clinically and was discharged with outpatient follow-up. Since discharge, the mother reports progressive forgetfulness, emotional lability, and difficulty with verbal communication, preferring visual or text prompts. His neurologic baseline involves mild developmental delay but independent ambulation and ability to sign and partially speak. Earlier this evening, following an appointment with his primary provider where smoking cessation and medication changes were discussed, he became acutely agitated, anxious, and claustrophobic. Shortly after returning home, he developed an event described as eyes closing, right hand tremor-like movements, and transient unresponsiveness. His eyes rolled back, and he appeared to shiver briefly, followed by confusion and emotional distress. A similar episode recurred a short while later. During evaluation, speech was stuttering and response slowed, though he intermittently followed commands using sign language. He also reports burning pain along his spine and difficulty moving his right arm after the eventboth new for him. There was no reported tongue biting, urinary incontinence, or head trauma. No chest pain, dyspnea, or focal weakness apart from transient right arm slowness. He continues to use home CPAP nightly. He has upcoming colonoscopy next week for chronic abdominal pain, rectal pressure, and GERD symptoms. His urologist at [facility] noted bladder/prostate normal, with prior catheter-related UTI; mother is strongly opposed to any further catheter placement. Allergies: Coded Allergies: ibuprofen (Unverified Allergy, Intermediate, swelling, 05/03/25) sulfamethoxazole (Verified Allergy, Mild, interaction with psych meds, 05/03/25) trimethoprim (Verified Allergy, Mild, interaction with psych meds, 05/03/25) mcdaniel pepper (Unverified Allergy, Unknown, 05/03/25) pt reports rash/itchiness bupropion HCl (Verified Allergy, Unknown, 05/03/25) methylphenidate HCl (Verified Allergy, Unknown, 05/03/25) pepper (genus Capsicum) (Verified Allergy, Unknown, 03/31/24) prednisone (Verified Allergy, Unknown, 03/31/24) quetiapine (Verified Allergy, Unknown, 03/31/24) sumatriptan (Verified Allergy, Unknown, paralysis, 03/31/24) ziprasidone (Unverified Allergy, Unknown, 03/31/24) zolpidem (Verified Allergy, Unknown, 03/31/24) Uncoded Allergies: AMOXICILLAN (Allergy, Unknown, 06/12/25) Home Medications Home Medications Active Pantoprazole Sodium 40 Mg Tablet.dr 1 Tab PO DAILY@32409 30 Days Reported Famotidine 20 mg Piggyback (Famotidine/Sodium Chloride) 20 Mg/50 Ml Piggyback 40 Methenamine Hippurate 1 Gram Tablet 1 Tab PO DAILY Mounjaro (Tirzepatide) 15 Mg/0.5 Ml Pen.injctr Atarax (Hydroxyzine Hcl) 25 Mg Tablet 1 Tab PO HS Baclofen 20 Mg Tablet 1 Tab PO Q8H 30 Days Flomax* (Tamsulosin HCl) 0.4 Mg Cap.sr.24h 1 Cap PO BID 30 Days Eliquis (Apixaban) 5 Mg Tablet 1 Tab PO Q12H 30 Days Magnesium (Magnesium Oxide) 500 Mg Capsule 500 Mg PO Iron (Ferrous Gluconate) 18 Mg Iron Capsule Ubrelvy (Ubrogepant) 100 Mg Tablet Saphris (Asenapine Maleate) 10 Mg Tab.subl 2 Tab SL HS Androgel (Testosterone) 40.5 Mg/2.5 Gram (1.62 %) Gel.packet 1 Packet TOP DAILY@1200 NURSE TO APPLY TO RIGHT SHOULDER AND RUB IN WELL TAKES TWO PACKETS 1 HR APART Synthroid* (Levothyroxine Sodium) 175 Mcg Tab 1 Tab PO DAILY@0730 Vitamin D3 (Cholecalciferol (Vitamin D3)) 1,000 Unit Tablet 2 Tablet PO DAILY Zoloft (Sertraline Hcl) 100 Mg Tablet 2 Tablet PO HS Topamax (Topiramate) 100 Mg Tablet 2 Tablet PO HS Past Medical History Past Medical History Klinefelter syndrome (on testosterone) Developmental delay Morbid obesity (BMI >60) ALVINO on CPAP Type 2 diabetes mellitus (on Mounjaro) CKD stage 3 Hypothyroidism Bipolar disorder / depression / anxiety Chronic pain syndrome History of DVT (on Eliquis) BPH, GERD Recurrent UTI with prior ESBL organisms Past Surgical History Surgical History Comment Noncontributory Family History Family History: FH: gallbladder disease MOTHER Past Social History Social History Comment Smokes about 1 pack of cigarettes a day since the age of 16 years Lives with mother and caregiver No alcohol or drug use reported Recent emotional stress related to smoking cessation counseling Family involved closely in daily care and medical decisions Smoking: Cigarettes Alcohol Use: None Drug Use: None Lives with: Other Lives In: Assisted Care Occupation: disabled ROS ROS Could not be obtained Exam Vitals: Vital Signs Date Time Temp Pulse Resp B/P (MAP) Pulse Ox O2 Delivery O2 Flow Rate FiO2 06/13/25 05:01 98.6 82 21 126/64 (84) 97 0 General: General: Awake, alert, morbidly obese communicates primarily through sign language. Intermittently verbal with stuttering speech. Appears fatigued. HEENT: No facial asymmetry. Pupils equal, reactive. Cardiac: Regular rate and rhythm, no murmur. Respiratory: Clear bilaterally. Uses CPAP at night. Abdomen: Soft, mildly tender in lower quadrants; no guarding or rebound. Extremities: 1+ pitting edema; peripheral pulses intact. Neurologic: Alert, follows commands. Partial right gaze limitation, mild right arm weakness with effort against gravity. No sensory deficit. No facial droop. Psychiatric: Cooperative but anxious; mood labile. Diagnostic Data Last Recorded Lab Results: 06/13/25 0003 06/13/25 0717 Advance Care Planning Advanced Care plannin - 30 Minutes Additional Plan 1. Seizure-like Episodes / Abnormal Movements Recurrent stereotyped events with altered awareness and rhythmic right hand movement, followed by confusion and stuttering speech Differential: Focal seizure vs psychogenic nonepileptic seizure (PNES) Plan: CT head: Normal EEG ordered (routine; consider prolonged if recurrent). MRI brain with and without contrast (open MRI if body habitus limits). Continue seizure precautions (bed safety, avoid driving) Continue topiramate for now (has antiseizure properties) Capture any further episodes on video for review If EEG confirms seizure activity, consider starting levetiracetam Educate caregiver and family on safety during events (turn to side, protect head, avoid restraining) Nuerology consulted, appreciate recommendations. 2. Altered Mental Status Likely multifactorial: postictal confusion vs medication effect (topiramate, psychiatric meds) vs stress-related episode No evidence of acute stroke or infection Plan: Maintain calm environment, minimize stimulation Reassess cognition daily Continue monitoring for any new focal deficits or worsening mentation 3. Right Arm Weakness Mild weakness with effort against gravity noted on exam; possibly Todds paresis postictal Plan: Monitor strength daily. If persists >48 hours, repeat imaging. 4. Acute Kidney Injury on CKD Mild rise in creatinine (1.5 from baseline 1.1). Likely prerenal from reduced intake Plan: Encourage oral hydration. Avoid NSAIDs and nephrotoxins Recheck BMP daily 5. Emotional Distress / Bipolar Disorder Continue sertraline, asenapine, and hydroxyzine her med rec Maintain low stimulation environment Psychiatry outpatient if episodes remain emotionally triggered or PNES suspected 6. Diabetes Mellitus Type 2 On Mounjaro 15 mg weekly Plan: Administer last dose today 06/13 Defer next Mounjaro dose until after colonoscopy. Monitor glucose levels while inpatient Sugar levels were 105 7. Anticoagulation Management (Pre Colonoscopy) On Eliquis 5 mg BID for prior DVT. Plan: Hold Eliquis starting 06/18/25 (3 days before procedure) Avoid NSAIDs, aspirin, garlic, and green tea until after colonoscopy Resume Eliquis post-procedure once cleared Continue Eliquis for now until 06/18 8. Obstructive Sleep Apnea Known ALVINO; uses home CPAP nightly. Plan: Continue CPAP during admission and at night. Monitor oxygen saturation; maintain SpO2 >92%. 9. Abdominal Pain Chronic abdominal and rectal pain; scheduled for colonoscopy next week Plan: Continue pantoprazole 40 mg daily Symptomatic relief with acetaminophen and baclofen as needed Avoid NSAIDs Mother strictly is against urinary catheter placement 10. History of urinary retention: Followed up with neurologist at [facility]; Continue home medication tamsulosin 0.4 mg p.o. b.i.d. 11. Hypothyroidism: Follow up with TSH levels, New home medication levothyroxine 175 mcg daily 12. Klinefelter syndrome: Continue home medication testosterone 40.5 mg/2.5 g gel packet topical daily; to be applied on right shoulder Avoid Before Colonoscopy, also confirmed by mother (she strictly wants this to be followed during this hospitalization) Eliquis stop on 06/18/25 (3 days before procedure) Mounjaro hold until after colonoscopy NSAIDs (ibuprofen, naproxen, etc.) Aspirin Garlic (including supplements or seasoning in large amounts) Green tea Fish oil or herbal supplements High-fiber foods (nuts, seeds, corn, beans, raw fruits and vegetables, whole grains) Red or purplecolored drinks, juices, or gelatin Code Status: full code DVT Prophylaxis: Eliquis (to be stopped on 06/18) Analgesia/ Sedation: Morphine Line/tubes: P IV GI Prophylaxis: Protonix Nutrition: NPO until BS PT: Ordered Prognosis: Guarded Chandler Gatica MD Internal Medicine Resident, PGY-2 Date of Service: Jun 13, 2025 Billing Provider: DEVENDRA COLON MD Addendum 39 year old with klinefelter syndrome and developmental delay admitted with shaking of the right upper extremity Plan: MRI brain EEG tomorrow neurology consult restart topiramate CCT 52 min using HIPPA compliant A/V technology CHANDLER GATICA, RES Jun 13, 2025 05:13 DEVENDRA COLON MD Jun 13, 2025 21:20
[2025-06-13] MEDS: normal saline 1000ml 1,000 ML IV SCH (05:30)
[2025-06-13] MEDS: K and/or MAG REPLACEMENT MC SCH (08:00)
[2025-06-13] MEDS: levoTHYROXINE 175mcg tablet PO SCH (09:40)
[2025-06-13] MEDS: pantoprazole 40mg Tablet.DR PO SCH (09:41)
[2025-06-13] MEDS: docusate sod 100mg capsule PO SCH (09:42)
[2025-06-13] MEDS: TESTOSTERONE TOP SCH (09:42)
[2025-06-13] MEDS: cholecalciferol (vitamin D3) 1,000 unit (25mcg) tablet PO SCH (09:42)
[2025-06-13] MEDS: MOUNJARO 15 MG/0.5 ML SQ ONE (16:51)
--- NOTE | 2025-06-13 18:02 | PROGRESS NOTE- Residence ---
Progress Note - Resident Providers to CC Resident Creating Document: RAJESH NICHOLSON, TUNDE ~ Antibiotic Timeout Antibiotic Ordered?: No Subjective Patient was seen at bedside. Patient is poor historian and communicates through sign language. Patient was assisted by his mother. Patient is anxious. Objective Vital Signs Date Time Temp Pulse Resp B/P (MAP) Pulse Ox O2 Delivery O2 Flow Rate FiO2 06/13/25 05:30 81 06/13/25 05:25 97.6 13 114/69 (84) 97 Room Air 06/13/25 05:01 0 Result Diagram: 06/13/25 0003 06/13/25 0717 General: Awake, alert, morbidly obese communicates primarily through sign language. Intermittently verbal with stuttering speech. Appears fatigued. HEENT: No facial asymmetry. Pupils equal, reactive. Cardiac: Regular rate and rhythm, no murmur. Respiratory: Clear bilaterally. Uses CPAP at night. Abdomen: Soft, mildly tender in lower quadrants; no guarding or rebound. Extremities: 1+ pitting edema; peripheral pulses intact. Neurologic: Alert, follows commands. Partial right gaze limitation, mild right arm weakness with effort against gravity. No sensory deficit. No facial droop. Psychiatric: Cooperative but anxious; mood labile. 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 Started on p.o. levetiracetam 500 mg b.i.d. Right Arm Weakness possibly Todds paresis postictal Mild weakness with effort against gravity noted on exam; Plan: Monitor strength daily. If persists >48 hours, repeat imaging. Acute Kidney Injury on CKD Mild rise in creatinine (1.5 from baseline 1.1). Likely prerenal from reduced intake Plan: Encourage oral hydration. Avoid NSAIDs and nephrotoxins Monitor BMP levels Diabetes Mellitus Type 2 On Mounjaro 15 mg weekly One dose of Mounjaro was given in the hospital 06/13/2025 Defer next Mounjaro dose until after colonoscopy. Monitor glucose levels while inpatient Emotional Distress / Bipolar Disorder Continue home medication sertraline, asenapine, and hydroxyzine her med rec Maintain low stimulation environment Psychiatry outpatient management 7. Anticoagulation Management (Pre Colonoscopy) On Eliquis 5 mg BID for prior DVT. Plan: Hold Eliquis starting 06/18/25 (3 days before procedure) Avoid NSAIDs, aspirin, garlic, and green tea until after colonoscopy Resume Eliquis post-procedure once cleared Continue Eliquis for now until 06/18 Chronic abdominal and rectal pain; scheduled for colonoscopy next week Continue pantoprazole 40 mg daily Symptomatic relief with acetaminophen and baclofen as needed Avoid NSAIDs Mother strictly is against urinary catheter placement Obstructive Sleep Apnea Known ALVINO; uses home CPAP nightly. Plan: Continue CPAP during admission and at night. Monitor oxygen saturation; maintain SpO2 >92%. History of urinary retention: Followed up with neurologist at [facility]; Continue home medication tamsulosin 0.4 mg p.o. b.i.d. Hypothyroidism: Follow up with TSH levels, New home medication levothyroxine 175 mcg daily Klinefelter syndrome: Continue home medication testosterone 40.5 mg/2.5 g gel packet topical daily; to be applied on right shoulder Avoid Before Colonoscopy, also confirmed by mother (she strictly wants this to be followed during this hospitalization) Eliquis stop on 06/18/25 (3 days before procedure) Mounjaro hold until after colonoscopy NSAIDs (ibuprofen, naproxen, etc.) Aspirin Garlic (including supplements or seasoning in large amounts) Green tea Fish oil or herbal supplements High-fiber foods (nuts, seeds, corn, beans, raw fruits and vegetables, whole grains) Red or purplecolored drinks, juices, or gelatin Code Status: full code DVT Prophylaxis: Eliquis (to be stopped on 06/18) Analgesia/ Sedation: Morphine Line/tubes: PIV GI Prophylaxis: Protonix Nutrition: Regular diet textures and thin liquids PT: Ordered Prognosis: Guarded Disposition: Continue medical management. Resident attestation The above note has been reviewed and supervised by a senior resident PGY3 Patient was seen, examined and discussed with the attending physician Vidal Nicholson MD Internal Medicine Resident, PGY 1 Date of Service: Jun 13, 2025 Billing Provider: CATALINO FIERRO MD,RAJESH CASON, RES Jun 13, 2025 18:02
[2025-06-13] MEDS ORDERED: dextrose 50%-water 50ml dispensing syringe IV PRN ×2 (20:00)
[2025-06-13] MEDS ORDERED: glucagon, human recombinant 1mg kit SUBCUT PRN (20:00)
[2025-06-13] MEDS ORDERED: DEXTROSE 15 GM of carb/4 tabs (each vial/BOTTLE has 4 tablets) PO PRN ×2 (20:00)
[2025-06-13] MEDS: ASENAPINE 10 MG SL SCH (21:00)
[2025-06-13] MEDS: INSULIN LISPRO 100 UNIT/ML INSULN.PEN MULTI-DOSE SQ SCH (21:00)
[2025-06-13] MEDS: ondansetron/PF 4mg/2ml inj IV PRN (22:14)
[2025-06-13] MEDS: HYDROmorphone inj. 0.5 MG/0.5 ML DISP.SYRIN IV PRN (23:23)
[2025-06-14] VITALS (7 sets, daily range): BP systolic 94–126; BP diastolic 55–74; PULSE 69–77; RESP 10–18; TEMP 96.7–98.5; O2SAT 94–98
[2025-06-14 07:20] LABS: MEAN PLATELET VOLUME 6.6 FL (7.4-10.4); RED CELL DISTRIBUTION WIDTH 15.1 % (11.5-14.5)
[2025-06-14 07:41] LABS: CHOL/HDL RATIO 5.9 (0.00-4.99); CREATININE 1.03 MG/DL (0.60-1.10); LDL CHOLESTEROL 100 MG/DL (50-100); TOTAL CARBON DIOXIDE 24.0 MMOL/L (24-32); eCRCL 107 ML/MIN; eGFR 80 ML/MIN
[2025-06-14 08:27] LABS: MEAN PLATELET VOLUME 6.4 FL (7.4-10.4); RED CELL DISTRIBUTION WIDTH 15.0 % (11.5-14.5)
[2025-06-14 08:44] LABS: CHOL/HDL RATIO 5.7 (0.00-4.99); CREATININE 1.12 MG/DL (0.60-1.10); LDL CHOLESTEROL 101 MG/DL (50-100); TOTAL CARBON DIOXIDE 26.5 MMOL/L (24-32); eCRCL 98 ML/MIN; eGFR 72 ML/MIN
[2025-06-14 10:09] LABS: URINE AMPHETAMINE SCREEN NEGATIVE (Neg); URINE BARBITUATE SCREEN NEGATIVE (Neg); URINE BENZODIAZEPINES SCREEN NEGATIVE (Neg); URINE CANNABINOID SCREEN NEGATIVE (Neg); URINE COCAINE SCREEN NEGATIVE (Neg); URINE METHADONE SCREEN NEGATIVE (Neg); URINE OPIATE SCREEN NEGATIVE (Neg); URINE PHENCYCLIDINE SCREEN NEGATIVE (Neg)
[2025-06-14] MEDS: magnesium hydroxide 30ml (MOM) UD suspension PO PRN (13:42)
--- NOTE | 2025-06-14 17:18 | PROCEDURE NOTE ---
Procedure Note Providers to CC ~ Interpretation: [place] EEG Note # Demographics Type of EEG Read: - Routine EEG - video Patient Location: Inpatient First Name: Alejandro Last Name: Joaquin Date of : 1985 Age: 39 Gender: Male Facility: [facility] Time of Initial Page (): 06/14/2025 10:17 First Contact with Site (): 06/14/2025 10:18 # EEG Interpretation Start Time of EEG Read (): 06/14/2025 09:48 Stop Time of EEG Read (): 06/14/2025 10:08 Duration: 0h 20m Technical Details: - This study was recorded using the [employer] EEG software - The EEG electrodes were placed using the standard International 10-20 system of electrode placement. Video and an accessory EKG lead were used during the course of this study. Indication: - seizure # Description Phases Captured: - awake - drowsy Symmetry: symmetric Posterior Dominant Rhythm: - present, attenuates on eye opening 9 Hz Amplitude: normal Reactivity: yes Variability: yes Continuity: continuous # Abnormalities Epileptiform Abnormalities: - NOT present Focal Slowing: no Seizure: - NOT present # Impression Impression: normal # Clinical Correlation Clinical Correlation: A normal EEG does not exclude nor support the diagnosis of epilepsy. # Demographics First Name: Alejandro Last Name: Joaquin Facility: [facility] JUNITO HOWE MD Jun 14, 2025 17:18
--- NOTE | 2025-06-14 18:14 | PROGRESS NOTE- Residence ---
Progress Note - Resident Providers to CC Resident Creating Document: RAJESH NICHOLSON, TUNDE ~ Antibiotic Timeout Antibiotic Ordered?: No Subjective Patient was seen at bedside. Patient had nausea and vomiting after mounjaro . Patient endorses that Patient slept comfortably with CPAP and No abnormal movements or tremors. No acute overnight symptoms noted. Objective Vital Signs Date Time Temp Pulse Resp B/P (MAP) Pulse Ox O2 Delivery O2 Flow Rate FiO2 06/14/25 13:42 18 06/14/25 11:00 98.2 71 126/74 (91) 98 Room Air 06/14/25 07:00 0.0 Result Diagram: 06/14/2580706/14/25807 General: Awake, alert, oriented to time place and person, morbidly obese. HEENT: No facial asymmetry. Pupils equal, reactive. Cardiac: Regular rate and rhythm, no murmur. Respiratory: Clear bilaterally. Uses CPAP at night. Abdomen: Soft, mildly tender in lower quadrants; no guarding or rebound. Extremities: 1+ pitting edema; peripheral pulses intact. Neurologic: Alert, follows commands. Partial right gaze limitation, mild right arm weakness with effort against gravity. No sensory deficit. No facial droop. Psychiatric: Cooperative but anxious; mood labile. Assessment Assessment Acute metabolic encephalopathy Possible focal seizure disorder Recurrent stereotyped events with altered awareness and rhythmic right hand movement, followed by confusion and stuttering speech Maintain calm environment, minimize stimulation CT head: Normal Advised to Capture any further episodes on video for review Educate caregiver and family on safety during events (turn to side, protect head, avoid restraining) EEG was normal which was done in May MRI brain with and without contrast as per nuerology recommendations. Started on p.o. levetiracetam 500 mg b.i.d. 06/14/2025: Continue p.o. levetiracetam 500 mg b.i.d. Tele neurology was consulted. MRI was not done due to his large body habitus Awaiting for EEG report Tele neurology called me on phone and advised verbally that if routine EEG is normal, then recommended continuous EEG. Right Arm Weakness possibly Todds paresis postictal Mild weakness with effort against gravity noted on exam; Plan: Monitor strength daily. If persists >48 hours, repeat imaging. Acute Kidney Injury on CKD Mild rise in creatinine (1.5 from baseline 1.1). Likely prerenal from reduced intake Plan: Encourage oral hydration. Avoid NSAIDs and nephrotoxins Monitor BMP levels Diabetes Mellitus Type 2 On Mounjaro 15 mg weekly One dose of Mounjaro was given in the hospital 06/13/2025 Defer next Mounjaro dose until after colonoscopy. Monitor glucose levels while inpatient Patient had nausea and vomiting after Mounjaro. Controlled with IV Zofran p.r.n. Morbid obesity BMI 65.7 [employer] was consulted Regular diet textures and thin liquids Emotional Distress / Bipolar Disorder Continue home medication sertraline, asenapine, and hydroxyzine her med rec Maintain low stimulation environment Psychiatry outpatient management 7. Anticoagulation Management (Pre Colonoscopy) On Eliquis 5 mg BID for prior DVT. Plan: Hold Eliquis starting 06/18/25 (3 days before procedure) Avoid NSAIDs, aspirin, garlic, and green tea until after colonoscopy Resume Eliquis post-procedure once cleared Continue Eliquis for now until 06/18 Chronic abdominal and rectal pain; scheduled for colonoscopy next week Continue pantoprazole 40 mg daily Symptomatic relief with acetaminophen and baclofen as needed Avoid NSAIDs Mother strictly is against urinary catheter placement Obstructive Sleep Apnea Known ALVINO; uses home CPAP nightly. Plan: Continue CPAP during admission and at night. Monitor oxygen saturation; maintain SpO2 >92%. History of urinary retention: Followed up with neurologist at [facility]; Continue home medication tamsulosin 0.4 mg p.o. b.i.d. Hypothyroidism: Follow up with TSH levels, New home medication levothyroxine 175 mcg daily Klinefelter syndrome: Continue home medication testosterone 40.5 mg/2.5 g gel packet topical daily; to be applied on right shoulder Avoid Before Colonoscopy, also confirmed by mother (she strictly wants this to be followed during this hospitalization) Eliquis stop on 06/18/25 (3 days before procedure) Mounjaro hold until after colonoscopy NSAIDs (ibuprofen, naproxen, etc.) Aspirin Garlic (including supplements or seasoning in large amounts) Green tea Fish oil or herbal supplements High-fiber foods (nuts, seeds, corn, beans, raw fruits and vegetables, whole grains) Red or purplecolored drinks, juices, or gelatin Code Status: full code DVT Prophylaxis: Eliquis (to be stopped on 06/18) Analgesia/ Sedation: Morphine Line/tubes: PIV GI Prophylaxis: Protonix Nutrition: Regular diet textures and thin liquids PT: Pending Prognosis: Guarded Disposition: Continue medical management. Resident attestation The above note has been reviewed and supervised by a senior resident PGY3 Patient was seen, examined and discussed with the attending physician Vidal Nicholson MD Internal Medicine Resident, PGY 1 Date of Service: Jun 14, 2025 Billing Provider: CATALINO FIERRO MD Common Visit Codes: 03345-[id number] INP/OBS CARE(HIGH) RAJESH NICHOLSON, RES Jun 14, 2025 18:14 CATALINO FIERRO MD Jun 15, 2025 06:51
[2025-06-14] MEDS: asenapine 5mg TAB.SUBL SL SCH (21:59)
[2025-06-15 06:00] VITALS: BP 104/62; PULSE 70; RESP 18; TEMP 97.8; O2SAT 99
[2025-06-15 06:47] LABS: MEAN PLATELET VOLUME 6.2 FL (7.4-10.4); RED CELL DISTRIBUTION WIDTH 14.7 % (11.5-14.5)
[2025-06-15 06:57] LABS: CREATININE 1.25 MG/DL (0.60-1.10); TOTAL CARBON DIOXIDE 26.1 MMOL/L (24-32); eCRCL 88 ML/MIN; eGFR 64 ML/MIN
[2025-06-15] MEDS ORDERED: polyethylene glycol 3350 17gm powd pack PO PRN (09:00)
[2025-06-15 10:00] VITALS: BP 130/80; PULSE 76; RESP 15; TEMP 98.1; O2SAT 96
[2025-06-15] MEDS ORDERED: LEVE750T6 PO (12:20)
[2025-06-15] MEDS: mag hydrox/Alum hydrox/simeth 30ml oral suspension PO PRN (12:28)
--- NOTE | 2025-06-15 19:28 | DISCHARGE SUMMARY-Residence ---
Discharge Summary Providers to CC Resident Creating Document: YOSEF CASON RES ~ Discharge Summary Admission Diagnosis: Seizure Hospital Course DATE OF ADMISSION: 06/13/25 DATE OF DISCHARGE: 06/15/25 Discharge Diagnosis\Comment: Possible Acute metabolic encephalopathy Possible focal seizure disorder Acute Kidney Injury on CKD Diabetes Mellitus Type 2 Morbid obesity Emotional Distress / Bipolar Disorder Obstructive Sleep Apnea History of urinary retention Hypothyroidism Klinefelter syndrome Operations\Procedures: None Consultants: Tele neuro was consulted Complications: None Condition on DC: Stable New Medications: Levetiracetam (Keppra) 750 Mg Tablet 1 TAB PO Q12H for 30 Days, #60 TAB 0 Refills Continued Medications: Apixaban (Eliquis) 5 Mg Tablet 1 TAB PO Q12H for 30 Days, #60 TAB 0 Refills Asenapine Maleate (Saphris) 10 Mg Tab.subl 2 TAB SL HS Baclofen (Baclofen) 20 Mg Tablet 1 TAB PO Q8H for 30 Days, #90 TAB 0 Refills Cholecalciferol (Vitamin D3) (Vitamin D3) 1,000 Unit Tablet 2 TABLET PO DAILY, #30 TABLET 5 Refills Ferrous Gluconate (Iron) 18 Mg Iron Capsule Hydroxyzine Hcl (Atarax) 25 Mg Tablet 1 TAB PO HS for anxiety, TAB 0 Refills Levothyroxine* (Synthroid*) 175 Mcg Tab 1 TAB PO DAILY@0730 Magnesium Oxide (Magnesium) 500 Mg Capsule 500 MG PO, CAP Methenamine Hippurate (Methenamine Hippurate) 1 Gram Tablet 1 TAB PO DAILY, TAB 0 Refills Pantoprazole Sodium (Pantoprazole Sodium) 40 Mg Tablet.dr 1 TAB PO DAILY@09755 for 30 Days, #30 TAB.SR Sertraline Hcl (Zoloft) 100 Mg Tablet 2 TABLET PO HS Tamsulosin Hcl* (Flomax*) 0.4 Mg Cap.sr.24h 1 CAP PO BID for 30 Days, #30 CAP Testosterone (Androgel) 40.5 Mg/2.5 Gram (1.62 %) Gel.packet 1 PACKET TOP DAILY@1200 NURSE TO APPLY TO RIGHT SHOULDER AND RUB IN WELL TAKES TWO PACKETS 1 HR APART Tirzepatide (Mounjaro) 15 Mg/0.5 Ml Pen.injctr 15 MG SQ Q7D Topiramate (Topamax) 100 Mg Tablet 2 TABLET PO HS Ubrogepant (Ubrelvy) 100 Mg Tablet Discharge Summary: HPI As Per Admitting physician History was obtained from the patients mother (Rabia Davalos, POA [phone]) and caregiver (Maribel Navarrete [phone]), as the patient communicates mostly through sign language and is intermittently verbal. A 39-year-old male with a complex past medical history including Klinefelter syndrome (on testosterone), morbid obesity (BMI >60), developmental delay, ALVINO on CPAP, bipolar disorder, CKD stage 3, type 2 diabetes (on Mounjaro), hypothyroidism, GERD, chronic pain syndrome, BPH, and history of DVT (on Eliquis). He was previously admitted on 05/15/25 for multiple transient loss of consciousness episodes characterized by blank staring, confusion, slurred speech, and transient apnea with cyanosis. At that time, there was concern for seizure activity, though no tonic-clonic activity, tongue biting, or incontinence was observed. EEG and brain imaging were ordered, but MRI could not be performed due to body habitus. He improved clinically and was discharged with outpatient follow-up. Since discharge, the mother reports progressive forgetfulness, emotional lability, and difficulty with verbal communication, preferring visual or text prompts. His neurologic baseline involves mild developmental delay but independent ambulation and ability to sign and partially speak. Earlier this evening, following an appointment with his primary provider where smoking cessation and medication changes were discussed, he became acutely agitated, anxious, and claustrophobic. Shortly after returning home, he developed an event described as eyes closing, right hand tremor-like movements, and transient unresponsiveness. His eyes rolled back, and he appeared to shiver briefly, followed by confusion and emotional distress. A similar episode recurred a short while later. During evaluation, speech was stuttering and response slowed, though he intermittently followed commands using sign language. He also reports burning pain along his spine and difficulty moving his right arm after the eventboth new for him. There was no reported tongue biting, urinary incontinence, or head trauma. No chest pain, dyspnea, or focal weakness apart from transient right arm slowness. He continues to use home CPAP nightly. He has upcoming colonoscopy next week for chronic abdominal pain, rectal pressure, and GERD symptoms. His urologist at [facility] noted bladder/prostate normal, with prior catheter-related UTI; mother is strongly opposed to any further catheter placement. Hospital course This is a 39-year-old male presented was brought to ER for evaluation altered mental status. He was previously admitted on 05/15/25 for multiple transient loss of consciousness episodes characterized by blank staring, confusion, slurred speech, and transient apnea with cyanosis. This is patient's 2nd syncopal episode in the past one month followed by prolonged confusion possibly he was having seizure. In view of this CT scan of the head was performed which was normal, tele neurology was consulted who recommended MRI and EEG however MRI could not be performed because of patient's body habitus and EEG which was normal , teleneuro advised also advised 24 hour EEG if routine EEG is normal, however 24 hour EEG could not be performed because the patient was very uncomfortable with the EEG cap during rourtine and does not fit him properly. In view of seizure concern patient was started on Keppra 500 mg b.i.d and no seizure episode was noted during hospitalization. On the day of discharge Dr. Polanco was also consulted who knows the patient and she recommended to increase dose of Keppra to 750 mg b.i.d. daily and patient was sent home with Keppra 750 mg BID daily and they will see patient in one month. Other causes of syncope were ruled out. Addition to that patient was also treated for his chronic condition ALVINO with CPAP,psychiatric illness with sertraline, asenapine, hydroxyzine and hypothyroidism with levothyroxine, patient also had YANET possibly due to reduced intake which was treated with NS 100 mL/hour. Patient also had history of urinary retention for which he follows with a urologist at [facility] and she was continued with his home medications Flomax for that and home medication was continued because of his prior DVT history and for Klinefelter syndrome continued AndroGel. Physical Examination General: Awake, alert, morbidly obese communicates primarily through sign language. Intermittently verbal with stuttering speech. HEENT: No facial asymmetry. Pupils equal, reactive. Cardiac: Regular rate and rhythm, no murmur. Respiratory: Clear bilaterally. Uses CPAP at night. Abdomen: Soft and non tender; no guarding or rebound. Extremities: no cyanosis, clubbing or edema Neurologic: Alert, follows commands., mild right arm weakness with effort against gravity. No sensory deficit. No facial droop. Psychiatric: Cooperative but anxious; Laboratory Tests Test 06/13/25 22:38 06/14/25 06:35 06/14/25 06:39 06/14/25 08:08 Glucometer 102 mg/dl 108 mg/dl White Blood Count 8.3 X10'3 8.4 X10'3 Red Blood Count 5.32 X10'6 5.03 X10'6 Hemoglobin 14.7 g/dl 14.2 g/dl Hematocrit 44.9 % 42.0 % Mean Corpuscular Volume 84.4 FL 83.5 FL Mean Corpuscular Hemoglobin 27.6 PG 28.2 PG Mean Corpuscular Hemoglobin Concent 32.7 g/dL 33.7 g/dL Red Cell Distribution Width 15.1 % 15.0 % Platelet Count 233 X10'3 235 X10'3 Mean Platelet Volume 6.6 FL 6.4 FL Neutrophils (%) (Auto) 56.4 % 59.0 % Lymphocytes (%) (Auto) 36.9 % 32.5 % Monocytes (%) (Auto) 5.4 % 7.2 % Eosinophils (%) (Auto) 1.0 % 0.9 % Basophils (%) (Auto) 0.3 % 0.4 % Neutrophils # (Auto) 4.7 X10'3 4.9 X10'3 Lymphocytes # (Auto) 3.1 X10'3 2.7 X10'3 Monocytes # (Auto) 0.4 X10'3 0.6 X10'3 Eosinophils # (Auto) 0.1 X10'3 0.1 X10'3 Basophils # (Auto) 0.0 X10'3 0.0 X10'3 CBC Comment Sodium Level 141 MMOL/L 142 MMOL/L Potassium Level 3.8 MMOL/L 3.9 MMOL/L Chloride Level 111 MMOL/L 111 MMOL/L Carbon Dioxide Level 24.0 MMOL/L 26.5 MMOL/L Anion Gap 6 5 Blood Urea Nitrogen 18 MG/DL 19 MG/DL Creatinine 1.03 MG/DL 1.12 MG/DL Estimated GFR/1.73 m2 80 ML/MIN 72 ML/MIN BUN/Creatinine Ratio 17.5 17.0 Glucose Level 102 MG/DL 99 MG/DL Calcium Level 8.1 MG/DL 8.1 MG/DL Magnesium Level 2.2 MG/DL Total Bilirubin 0.4 MG/DL Aspartate Amino Transf (AST/SGOT) 7 U/L Alanine Aminotransferase (ALT/SGPT) < 6 U/L Alkaline Phosphatase 72 IU/L Total Protein 6.2 G/DL Albumin 2.5 G/DL 2.5 G/DL Globulin 3.7 G/DL Albumin/Globulin Ratio 0.7 Triglycerides Level 158 MG/DL 160 MG/DL Cholesterol Level 154 MG/DL 155 MG/DL LDL Cholesterol 100 MG/DL 101 MG/DL HDL Cholesterol 26 MG/DL 27 MG/DL Cholesterol/HDL Ratio 5.9 5.7 Chemistry Comments Test 06/14/25 09:45 06/14/25 11:13 06/14/25 17:02 06/14/25 21:55 Urine Opiates Screen Negative Urine Methadone Screen Negative Urine Fentanyl Screen Negative Urine Barbiturates Screen Negative Urine Phencyclidine Screen Negative Urine Amphetamines Screen Negative Urine Benzodiazepines Screen Negative Urine Cocaine Screen Negative Urine Cannabinoids Screen Negative Drug Screen Comment Glucometer 113 mg/dl 90 mg/dl 94 mg/dl Test 06/15/25 06:18 06/15/25 08:26 06/15/25 12:09 White Blood Count 7.9 X10'3 Red Blood Count 5.21 X10'6 Hemoglobin 14.4 g/dl Hematocrit 43.1 % Mean Corpuscular Volume 82.7 FL Mean Corpuscular Hemoglobin 27.6 PG Mean Corpuscular Hemoglobin Concent 33.4 g/dL Red Cell Distribution Width 14.7 % Platelet Count 227 X10'3 Mean Platelet Volume 6.2 FL Neutrophils (%) (Auto) 51.8 % Lymphocytes (%) (Auto) 40.5 % Monocytes (%) (Auto) 6.2 % Eosinophils (%) (Auto) 1.0 % Basophils (%) (Auto) 0.5 % Neutrophils # (Auto) 4.1 X10'3 Lymphocytes # (Auto) 3.2 X10'3 Monocytes # (Auto) 0.5 X10'3 Eosinophils # (Auto) 0.1 X10'3 Basophils # (Auto) 0.0 X10'3 CBC Comment Sodium Level 143 MMOL/L Potassium Level 3.6 MMOL/L Chloride Level 110 MMOL/L Carbon Dioxide Level 26.1 MMOL/L Anion Gap 7 Blood Urea Nitrogen 16 MG/DL Creatinine 1.25 MG/DL Estimated GFR/1.73 m2 64 ML/MIN BUN/Creatinine Ratio 12.8 Glucose Level 84 MG/DL Calcium Level 8.2 MG/DL Magnesium Level 2.1 MG/DL Total Bilirubin 0.4 MG/DL Aspartate Amino Transf (AST/SGOT) 10 U/L Alanine Aminotransferase (ALT/SGPT) 20 U/L Alkaline Phosphatase 70 IU/L Total Protein 6.1 G/DL Albumin 2.5 G/DL Globulin 3.6 G/DL Albumin/Globulin Ratio 0.7 Chemistry Comments Glucometer 88 mg/dl 101 mg/dl Imaging Carotid US: Impression: Imaging reveals no evidence for a hemodynamically significant stenosis or occlusion in the carotid arteries bilaterally. Less than 50% stenosis visualized in the internal carotid arteries bilaterally. Less than 50% stenosis visualized in the external and common carotid arteries bilaterally. bilaterally. Antegrade flow visualized in the vertebral arteries bilaterally. Multiphasic waveforms are noted in the subclavian arteries ECHO Conclusion Normal LV size and function. Mild concentric hypertrophy. LVEF is 60-65%. RV is normal size and function. LA size appears normal. RA size appears normal. Trileaflet AV appears mildly sclerotic without stenosis or insufficiency. Mild MV annular calcification without stenosis. Trace regurgitation. TV appears structurally normal with trace regurgitation. Normal pericardium. No effusion. Head CT FINDINGS: There is no evidence of acute intracranial hemorrhage, extra-axial collection, mass effect, midline shift, herniation or hydrocephalus. The ventricles, sulci and cisterns are age appropriate. The chavez-white differentiation is intact. The visualized paranasal sinuses and mastoid air cells are clear. The surrounding soft tissues and osseous structures are unremarkable. IMPRESSION: 1. No evidence of acute intracranial abnormality. Discharge Instructions Follow up with PCP within 2 weeks of discharge Follow up with Neurologist within 2 weeks Follow up with Urologist within 2 weeks Take medications as prescribed Call 911 or go to nearest ER, if you experience chest pain or seizure. *Problems/Diagnosis: (1) Obstructive sleep apnea Status: Chronic Total Time Spent on D/C: > 30 Minutes Date of Service: Jun 15, 2025 Billing Provider: CATALINO FIERRO MD Common Visit Codes: 65670-PDW/OBS DISCH DAY >30min YOSEF CASON, RES Jun 15, 2025 19:28 CATALINO FIERRO MD Jun 16, 2025 07:19
== END 2025-06-15 13:55 | disposition home or self-care (01) | DRG 100 ==
LOC: ER 23:46 → ED HOLD 06-13 03:27 → PCU 3S 06-13 05:19 → ORTHO 4S 06-14 14:08
PROVIDERS: ADMIT Internal Medicine; ATTEND Internal Medicine
PROC: 5A09357 Assistance with Respiratory Ventilation, Less than 24 Consecutive Hours, Continuous Positive Airway Pressure (ICD-10-PCS; 2025-06-13)
PROC: 4A10X4Z Monitoring of Central Nervous Electrical Activity, External Approach (ICD-10-PCS; principal; 2025-06-14)
PROC: 5A09357 Assistance with Respiratory Ventilation, Less than 24 Consecutive Hours, Continuous Positive Airway Pressure (ICD-10-PCS; 2025-06-14)
DX: G40.109 Localization-related (focal) (partial) symptomatic epilepsy and epileptic syndromes with simple partial seizures, not intractable, without status epilepticus (principal); G93.41 Metabolic encephalopathy; N17.0 Acute kidney failure with tubular necrosis; Z68.44 Body mass index [BMI] 60.0-69.9, adult; E11.22 Type 2 diabetes mellitus with diabetic chronic kidney disease; E66.01 Morbid (severe) obesity due to excess calories; F31.9 Bipolar disorder, unspecified; G47.33 Obstructive sleep apnea (adult) (pediatric); N18.30 Chronic kidney disease, stage 3 unspecified; N40.0 Benign prostatic hyperplasia without lower urinary tract symptoms; F41.9 Anxiety disorder, unspecified; K21.9 Gastro-esophageal reflux disease without esophagitis; E03.9 Hypothyroidism, unspecified; Q98.4 Klinefelter syndrome, unspecified; Z88.2 Allergy status to sulfonamides; Z88.6 Allergy status to analgesic agent; Z79.01 Long term (current) use of anticoagulants; Z79.899 Other long term (current) drug therapy; Z86.718 Personal history of other venous thrombosis and embolism
CPT/HCPCS: 36415; 70450; 80048; 80053; 80061; 80305; 81003; 82948; 83605; 83690; 83735; 84132; 84443; 85025; 87040; 87081; 92508; 92616; 95816; 96374; 99285; G0378; J1171; J1815; J2405; J7030; Q0177

== ENCOUNTER 2025-06-26 16:08 | Emergency (ER) | payer MEDICARE, MEDICAID ==
[~2025-06-26] VITALS: Ht 185.4 cm; Wt 217.7 kg
[~2025-06-26 16:08] MED LIST changes: +BACL20TA PO; +FAMO20PI2; +HYDR-3686 PO; +LEVE750T6 PO; +METH1TAB69 PO; +TIRZ15PE SQ
[2025-06-26 17:08] LABS: LEUKOCYTE ESTERASE ,URINE NEGATIVE (Neg); NITRITES, URINE NEGATIVE (Neg); OCCULT BLOOD,URINE NEGATIVE (Neg)
[2025-06-26 17:14] LABS: MEAN PLATELET VOLUME 7.0 FL (7.4-10.4); RED CELL DISTRIBUTION WIDTH 14.7 % (11.5-14.5)
[2025-06-26 17:18] LABS: UA COLLECTION TYPE CLN CATCH MIDSTREAM
[2025-06-26 17:19] LABS: AMORPHOUS PHOSPHATES 1+; SQUAMOUS EPITHELIAL CELL,UR FEW /LPF (FEW)
[2025-06-26 17:27] LABS: CREATININE 1.24 MG/DL (0.60-1.10); TOTAL CARBON DIOXIDE 22.8 MMOL/L (24-32); eCRCL 89 ML/MIN; eGFR 64 ML/MIN
[2025-06-26 20:17] VITALS: TEMP 98.9
--- NOTE | 2025-06-26 20:52 | Physician Documentation ---
History of Present Illness ~ Chief Complaint: Vomiting w/diarrhea Stated Complaint: VOMITING/DIARRHEA Time Seen by MD: 20:50 Primary Medical Doctor: Keren Nettles [facility] Patient presents to the emergency room for evaluation of vomiting and diarrhea that began onset this morning. No sick contacts. He is on Mounjaro. Also endorses unusual tasting vomitus and states it tastes like yeast. Recent colonoscopy this past week. Medication Reconciliation Allergies: Coded Allergies: ibuprofen (Unverified Allergy, Intermediate, swelling, 05/03/25) sulfamethoxazole (Verified Allergy, Mild, interaction with psych meds, 05/03/25) trimethoprim (Verified Allergy, Mild, interaction with psych meds, 5) mcdaniel pepper (Unverified Allergy, Unknown, 05/03/25) pt reports rash/itchiness bupropion HCl (Verified Allergy, Unknown, 05/03/25) methylphenidate HCl (Verified Allergy, Unknown, 05/03/25) pepper (genus Capsicum) (Verified Allergy, Unknown, 03/31/24) prednisone (Verified Allergy, Unknown, 03/31/24) quetiapine (Verified Allergy, Unknown, 03/31/24) sumatriptan (Verified Allergy, Unknown, paralysis, 03/31/24) ziprasidone (Unverified Allergy, Unknown, 03/31/24) zolpidem (Verified Allergy, Unknown, 03/31/24) Uncoded Allergies: AMOXICILLAN (Allergy, Unknown, 06/12/25) Scheduled Apixaban (Eliquis), 1 TAB PO Q12H, (Reported) Asenapine Maleate (Saphris), 2 TAB SL HS, (Reported) Baclofen (Baclofen), 1 TAB PO Q8H, (Reported) Cholecalciferol (Vitamin D3) (Vitamin D3), 2 TABLET PO DAILY, (Reported) Hydroxyzine Hcl (Atarax), 1 TAB PO HS, (Reported) Levetiracetam (Keppra), 1 TAB PO Q12H Levothyroxine* (Synthroid*), 1 TAB PO DAILY@0730, (Reported) Methenamine Hippurate (Methenamine Hippurate), 1 TAB PO DAILY, (Reported) Pantoprazole Sodium (Pantoprazole Sodium), 1 TAB PO DAILY@84574 Sertraline Hcl (Zoloft), 2 TABLET PO HS, (Reported) Tamsulosin Hcl* (Flomax*), 1 CAP PO BID, (Reported) Testosterone (Androgel), 1 PACKET TOP DAILY@1200, (Reported) Tirzepatide (Mounjaro), 15 MG SQ Q7D, (Reported) Topiramate (Topamax), 2 TABLET PO HS, (Reported) Miscellaneous Medications Famotidine in Saline,Iso-Os/Pf (Famotidine 20 mg Piggyback), 40, (Reported) Ferrous Gluconate (Iron), (Reported) Magnesium Oxide (Magnesium), 500 MG PO, (Reported) Ubrogepant (Ubrelvy), (Reported) Past Medical History Past Medical History: Headache, Sleep Apnea, GERD, *RENAL/*, Chronic Kidney Disease, UTI, Diabetes, Hypothyroidism, Deep Vein Thrombosis, Gout, Anxiety, Depression Past Surgical History: no surgical history Patient History: FH: gallbladder disease MOTHER Alcohol Use: None Drug Use: none Lives with: Other Lives In: Assisted Care Occupation: disabled Review of Systems ROS All review of systems negative except as per HPI Physical Exam Vital Signs: Temperature: 98.9, Source: Oral, Heart Rate: 92, Respiratory Rate: 36, BP: 121/91, Pulse Oximetry: 98, Weight: 217.700 Oxygen Flow Rate: 0 Physical Exam General: Patient is awake, alert, oriented x4 in no acute distress Head: Normocephalic and atraumatic. Eyes: Conjunctival normal. EOMI. PERRL. ENT: Mucous membranes moist. Neck: Supple, trachea is midline. Chest: Clear to auscultation bilaterally without rales, rhonchi, or wheezes. There is no accessory muscle use or retractions. Cardiac: RRR without murmurs, gallops, or rubs. Abd: Soft, large pannus, diffuse abdominal tenderness without peritonitis Progress Results/Orders Results/Orders Orders - ZEESHAN ACEVEDO MD Ct Abdomen Pelvis (06/26/25 21:32) Completed Orders - ZEESHAN ACEVEDO MD Famotidine/Pf Iv Inj (Pepcid Iv Inj) (06/26/25 21:00) Ondansetron Inj. (Zofran 4mg/2ml Vial) (06/26/25 21:00) Normal Saline 1000ml (0.9% Sodium Chlori (06/26/25 21:00) Pantoprazole 40mg Iv (Protonix 40mg Iv) (06/26/25 21:00) Ct Abdomen Pelvis (06/26/25 21:32) Acetaminophen 1,000mg/100ml Iv (Ofirmev (06/26/25 21:00) Mag & Alum Hydrox/Simeth Susp (Maalox Or (06/26/25 21:00) Medications Received in ER Medications (Trade) Dose Ordered Sig/Thomas Route PRN Reason Start Time Stop Time Status Last Admin Dose Admin (Pepcid IV inj) 20 mg ONCE ONCE IV 06/26/25 21:00 06/26/25 21:01 DC 06/26/25 21:18 20 MG (Zofran 4mg/2ml vial) 8 mg ONCE ONCE IV 06/26/25 21:00 06/26/25 21:01 DC 06/26/25 21:15 8 MG Sodium Chloride 1,000 ml @ 1,000 mls/hr ONCE ONCE IV 06/26/25 21:00 06/26/25 21:59 DC 06/26/25 21:41 1,000 MLS/HR (Protonix 40mg IV) 40 mg ONCE ONCE IV 06/26/25 21:00 06/26/25 21:01 DC 06/26/25 21:20 40 MG Acetaminophen 100 ml @ 400 mls/hr ONCE ONCE IV 06/26/25 21:00 06/26/25 21:14 DC 06/26/25 21:41 400 MLS/HR (Maalox oral suspension) 30 ml ONCE ONCE PO 06/26/25 21:00 06/26/25 21:01 DC 06/26/25 21:40 30 ML Vital Signs 06/26/25 06/26/25 06/26/25 16:12 20:17 20:59 Temp 96.7 98.9 Pulse 95 92 Resp 18 36 B/P (MAP) 173/101 121/91 (101) Pulse Ox 97 98 O2 Flow Rate 0 0 Laboratory Tests Test 06/26/25 16:16 06/26/25 16:52 Urine Specimen Description Cln catch midstream Urine Color Yellow Urine Clarity Slightly cloudy Urine pH 8.5 Urine Specific [place] 1.015 Urine Protein Negative Urine Glucose (UA) Negative Urine Ketones Negative Urine Occult Blood Negative Urine Nitrite Negative Urine Bilirubin Negative Urine Urobilinogen 0.2 Urine Leukocyte Esterase Negative Urine RBC 0-2 Urine WBC 0-4 Urine Squamous Epithelial Cells Few Urine Transitional Epithelial Cells Few Urine Amorphous Phosphates 1+ Urine Bacteria None seen Urine Culture Indicated Not ind Volume Urine Centrifuged 10 ml Urine Comment White Blood Count 12.7 H Red Blood Count 6.16 H Hemoglobin 17.2 Hematocrit 51.0 Mean Corpuscular Volume 82.7 Mean Corpuscular Hemoglobin 27.9 Mean Corpuscular Hemoglobin Concent 33.7 Red Cell Distribution Width 14.7 H Platelet Count 285 Mean Platelet Volume 7.0 L Neutrophils (%) (Auto) 77.5 H Lymphocytes (%) (Auto) 17.6 L Monocytes (%) (Auto) 4.0 Eosinophils (%) (Auto) 0.5 Basophils (%) (Auto) 0.4 Neutrophils # (Auto) 9.8 H Lymphocytes # (Auto) 2.2 Monocytes # (Auto) 0.5 Eosinophils # (Auto) 0.1 Basophils # (Auto) 0.0 CBC Comment Sodium Level 142 Potassium Level 3.8 Chloride Level 109 H Carbon Dioxide Level 22.8 L Anion Gap 10 Blood Urea Nitrogen 11 Creatinine 1.24 H Estimated GFR/1.73 m2 64 BUN/Creatinine Ratio 8.9 L Glucose Level 127 H Calcium Level 9.1 Total Bilirubin 0.3 Aspartate Amino Transf (AST/SGOT) 26 Alanine Aminotransferase (ALT/SGPT) 56 Alkaline Phosphatase 96 Total Protein 8.0 Albumin 3.5 Globulin 4.5 H Albumin/Globulin Ratio 0.8 L Lipase 34 Chemistry Comments Medical Decision Making Additional information obtaine: old records Findings Patient presents to the emergency room for evaluation of vomiting and diarrhea. Differentials include but are not limited to dehydration, gastroenteritis, viral syndrome, small-bowel obstruction, electrolyte disturbances therefore emergent labs and imaging ordered which were reassuring. Patient is responding to treatment. Given his vomiting with diarrhea suspect viral syndrome. He already has Zofran and Imodium at home and states that no prescriptions are necessary. Diff Dx GI Bleed:Consideration: Include: AE fistula, Angiodysplasia, Bleeding diathesis, Blood loss anemia, Carcinoma, Diverticulosis, Diverticulitis, Esop hageal varicies, Esophagitis, Gastritis, Gastroenteritis, Inflammatory BD, Tina-Adair syndrome, Meckel's diverticulum, PUD, Other Diff Dx Pain:Considerations: Include: AAA, Angina/GA, Aortic dissection, Appendicitis, Bowel obstruction, Cholangitis, Cholecystitis, Cholelithasis, Constipation, Diverticular disease, Esophageal rupture, Esophagitis, Gastritis, Gastroenteritis, GI hemorrhage, Hepatitis, Hernia, Inflammatory BD, Ischemic bowel, Mass, Pancreatitis, Porphyria, PUD, Testicular torsion, Trauma, intraabdominal, Urinary obstruction, Urinary tract infection, Urolithiasis, Other Diff Dx N/V/D:Considerations: Include: Appendicitis, Bowel obstruction, Dehydration, DKA, Diarrhea - bacterial, Diarrhea - parasitic, Diarrhea - viral, Diverticulitis, Diverticulosis, Drug toxicity, Electrolyte imbalance, Food poisoning, Gastroenteritis, GE reflux, GI bleed, Hepatitis, Hernia, Hypovolemia, Hypotension, Inflammatory BD, Impaction, Malnutrition, Pancreatitis, PUD, Renal failure, Urinary obstruction, UTI, Urolithiasis, Other Diff Dx Rectal:Considerations: Include: Fissure, Fistula, Foreign body, Impaction, Perirectal abscess, Prostatitis, Rectal prolapse, Subcutaneous abscess, Thrombosed hemorrhoid, Ulcer, UTI, Other Departure Disposition: 01 HOME / SELF CARE / HOMELESS Impression: Primary Impression: Gastroenteritis Condition: Improved Discharge Instructions: Viral Gastroenteritis, Adult Additional Instructions: Zofran for nausea and vomiting, Imodium for diarrhea Referrals: NO PRIMARY CARE PROVIDER (PCP) Signature Scribe Signature: No scribe Attestation: The note accurately reflects work and decisions made by me.Zeeshan Acevedo MD 06/26/25 22:18 ZEESHAN ACEVEDO MD Jun 26, 2025 20:52
[2025-06-26] MEDS: ondansetron/PF 4mg/2ml inj IV ONE (21:15)
[2025-06-26] MEDS: famotidine/PF 10 mg/ml inj IV ONE (21:18)
[2025-06-26] MEDS: mag hydrox/Alum hydrox/simeth 30ml oral suspension PO ONE (21:40)
[2025-06-26] MEDS: normal saline 1000ml 1,000 ML IV ONE ×2 (21:41→22:24)
[2025-06-26] MEDS: acetaminophen 1,000mg/100ml IV 100 ML IV ONE (21:41)
--- NOTE | 2025-06-26 21:53 | RADIOLOGY REPORT ---
Exam: CT CT ABDOMEN PELVIS History: abd pain Comparison Study: CT CT ABDOMEN PELVIS on DOS: 01/16/25, US ULTRASOUND KIDNEY NON VASC on DOS: 05/15/24, US PELVIS/WITH DUPLEX on DOS: 12/26/22, CT CHEST ABDOMEN PELVIS on DOS: 12/26/22 TECHNIQUE: Multidetector CT of the abdomen and pelvis was performed from lung bases to pubic symphysis. Imaging was performed without IV contrast. Axial, coronal, and sagittal multiplanar reformats were obtained from the axial data set by the technologist. RADIATION DOSE: CTDI vol 34.44 mGy. DLP 2139.15 mGy.cm Findings: Limited evaluation of the solid organs in the absence of IV contrast. Evaluation is also limited by poor signal to noise ratio. Lungs: Mild basilar atelectasis/scarring. Liver: Unremarkable. Spleen: Splenomegaly. Pancreas: Unremarkable. Gallbladder: Unremarkable. Adrenals: Unremarkable Kidneys: Unremarkable. Pelvic Viscera: Unremarkable. Vasculature: Unremarkable. Retroperitoneum: Unremarkable. Bowel: Fluid-filled mildly prominent small bowel loops with decompressed distal loops. Musculoskeletal: Unremarkable. Soft tissues: Unremarkable Impression: 1. Fluid-filled mildly prominent small bowel loops with decompressed distal loops, which may be referable to enteritis or developing small bowel obstruction. 2. Additional findings as detailed.
[2025-06-26 22:51] VITALS: BP 114/87; PULSE 75; RESP 14; O2SAT 97
== END 2025-06-26 23:06 | disposition home or self-care (01) ==
LOC: ER 16:09
DX: K52.9 Noninfective gastroenteritis and colitis, unspecified (principal); E11.22 Type 2 diabetes mellitus with diabetic chronic kidney disease; N18.9 Chronic kidney disease, unspecified; G47.30 Sleep apnea, unspecified; E03.9 Hypothyroidism, unspecified; K21.9 Gastro-esophageal reflux disease without esophagitis; F41.9 Anxiety disorder, unspecified; F32.A Depression, unspecified; Z88.6 Allergy status to analgesic agent; Z88.2 Allergy status to sulfonamides; Z88.8 Allergy status to other drugs, medicaments and biological substances; Z86.718 Personal history of other venous thrombosis and embolism; Z79.85 Long-term (current) use of injectable non-insulin antidiabetic drugs; Z87.440 Personal history of urinary (tract) infections; Z79.899 Other long term (current) drug therapy
CPT/HCPCS: 36415; 74176; 80053; 81001; 83690; 85025; 96365; 96366; 96368; 96375; 99285; J0131; J2405; J2470; J3490; J7030

== ENCOUNTER 2025-07-29 18:52 | Emergency (ER) | payer MEDICARE, MEDICAID ==
[~2025-07-29] VITALS: Ht 185.4 cm; Wt 201.4 kg
[~2025-07-29 18:52] MED LIST changes: -AMOX-580 PO; -CHERRY FLEX; -CIPR-458 PO; -DOXY-224 PO; -FAMO-129 PO; -LACT1CAP75 PO
--- NOTE | 2025-07-29 19:10 | Physician Documentation ---
History of Present Illness ~ Chief Complaint: Chest Pain Stated Complaint: CHEST PAIN Time Seen by MD: 19:04 Primary Medical Doctor: [facility] Patient presents to the emergency room with one-week of epigastric pain. He states this is related to his gallbladder. He is on Mounjaro. No fevers. He did stop Protonix a proximally one-week ago as he is taking fluconazole and he is concern for the interaction. Medication Reconciliation Allergies: Coded Allergies: ibuprofen (Unverified Allergy, Intermediate, swelling, 05/03/25) sulfamethoxazole (Verified Allergy, Mild, interaction with psych meds, 05/03/25) trimethoprim (Verified Allergy, Mild, interaction with psych meds, 05/03/25) mcdaniel pepper (Unverified Allergy, Unknown, 05/03/25) pt reports rash/itchiness bupropion HCl (Verified Allergy, Unknown, 05/03/25) methylphenidate HCl (Verified Allergy, Unknown, 05/03/25) pepper (genus Capsicum) (Verified Allergy, Unknown, 03/31/24) prednisone (Verified Allergy, Unknown, 03/31/24) quetiapine (Verified Allergy, Unknown, 03/31/24) sumatriptan (Verified Allergy, Unknown, paralysis, 03/31/24) ziprasidone (Unverified Allergy, Unknown, 03/31/24) zolpidem (Verified Allergy, Unknown, 03/31/24) Uncoded Allergies: AMOXICILLAN (Allergy, Unknown, 06/12/25) Scheduled Apixaban (Eliquis), 1 TAB PO Q12H, (Reported) Asenapine Maleate (Saphris), 2 TAB SL HS, (Reported) Baclofen (Baclofen), 1 TAB PO Q8H, (Reported) Cholecalciferol (Vitamin D3) (Vitamin D3), 2 TABLET PO DAILY, (Reported) Hydroxyzine Hcl (Atarax), 1 TAB PO HS, (Reported) Levetiracetam (Keppra), 1 TAB PO Q12H Levothyroxine* (Synthroid*), 1 TAB PO DAILY@0730, (Reported) Methenamine Hippurate (Methenamine Hippurate), 1 TAB PO DAILY, (Reported) Pantoprazole Sodium (Pantoprazole Sodium), 1 TAB PO DAILY@64568 Sertraline Hcl (Zoloft), 2 TABLET PO HS, (Reported) Tamsulosin Hcl* (Flomax*), 1 CAP PO BID, (Reported) Testosterone (Androgel), 1 PACKET TOP DAILY@1200, (Reported) Tirzepatide (Mounjaro), 15 MG SQ Q7D, (Reported) Topiramate (Topamax), 2 TABLET PO HS, (Reported) Miscellaneous Medications Famotidine in Saline,Iso-Os/Pf (Famotidine 20 mg Piggyback), 40, (Reported) Ferrous Gluconate (Iron), (Reported) Magnesium Oxide (Magnesium), 500 MG PO, (Reported) Ubrogepant (Ubrelvy), (Reported) Past Medical History Past Medical History: Headache, Sleep Apnea, GERD, *RENAL/*, Chronic Kidney Disease, UTI, Diabetes, Hypothyroidism, Deep Vein Thrombosis, Gout, Anxiety, Depression Past Surgical History: no surgical history Patient History: FH: gallbladder disease MOTHER Alcohol Use: None Drug Use: none Lives with: Other Lives In: Assisted Care Occupation: disabled Review of Systems ROS All review of systems negative except as per HPI Physical Exam Vital Signs: Temperature: 98.4, Source: Oral, Heart Rate: 89, Respiratory Rate: 20, BP: 168/112, Pulse Oximetry: 97, Weight: 201.360 Physical Exam General: Patient is awake, alert, oriented x4 in no acute distress. Morbidly obese Head: Normocephalic and atraumatic. Eyes: Conjunctival normal. EOMI. PERRL. ENT: Mucous membranes moist. Neck: Supple, trachea is midline. Chest: Clear to auscultation bilaterally without rales, rhonchi, or wheezes. There is no accessory muscle use or retractions. Cardiac: RRR without murmurs, gallops, or rubs. Abd: Soft, nondistended, mild diffuse tenderness to palpation without peritonitis Progress Results/Orders Results/Orders Orders - ZEESHAN ACEVEDO MD Chest,Single View (07/29/25 19:15) Monitor (07/29/25 19:08) Saline Lock (07/29/25 19:08) Oxygen (07/29/25 19:08) Electrocardiogram (07/29/25 19:08) Hs Troponin I W Calculations (07/29/25 21:08) Hs Troponin I W Calculations (07/29/25 22:08) Ultrasound Of Abdomen (07/29/25 19:19) Ct Abdomen Pelvis (07/29/25 20:10) Completed Orders - ZEESHAN ACEVEDO MD Electrocardiogram (07/29/25 18:57) Chest,Single View (07/29/25 19:15) Cbc/Diff (07/29/25 19:08) PBNP (07/29/25 19:08) Hs Troponin I W Calculations (07/29/25 19:08) CMP (07/29/25 19:18) Lipase (07/29/25 19:18) Ultrasound Of Abdomen (07/29/25 19:19) Famotidine/Pf Iv Inj (Pepcid Iv Inj) (07/29/25 19:25) Ct Abdomen Pelvis (07/29/25 20:10) Medications Received in ER Medications (Trade) Dose Ordered Sig/Thomas Route PRN Reason Start Time Stop Time Status Last Admin Dose Admin (Pepcid IV inj) 40 mg ONCE ONCE IV 07/29/25 19:25 07/29/25 19:26 DC 07/29/25 20:17 40 MG Vital Signs 07/29/25 07/29/25 07/29/25 07/29/25 18:59 19:30 19:30 19:38 Temp 98.4 98.4 Pulse 89 87 Resp 20 16 18 B/P (MAP) 168/112 128/78 (95) Pulse Ox 97 96 96 O2 Delivery Room Air* O2 Flow Rate 0 0 FiO2 21 Laboratory Tests Test 07/29/25 19:32 White Blood Count 8.5 Red Blood Count 4.13 L Hemoglobin 11.7 L Hematocrit 35.3 L Mean Corpuscular Volume 85.3 Mean Corpuscular Hemoglobin 28.4 Mean Corpuscular Hemoglobin Concent 33.2 Red Cell Distribution Width 15.1 H Platelet Count 172 Mean Platelet Volume 7.0 L Neutrophils (%) (Auto) 67.5 Lymphocytes (%) (Auto) 25.5 Monocytes (%) (Auto) 5.9 Eosinophils (%) (Auto) 0.8 Basophils (%) (Auto) 0.3 Neutrophils # (Auto) 5.8 Lymphocytes # (Auto) 2.2 Monocytes # (Auto) 0.5 Eosinophils # (Auto) 0.1 Basophils # (Auto) 0.0 CBC Comment Sodium Level 143 Potassium Level 4.0 Chloride Level 112 H Carbon Dioxide Level 21.9 L Anion Gap 9 Blood Urea Nitrogen 13 Creatinine 1.16 H Estimated GFR/1.73 m2 69 BUN/Creatinine Ratio 11.2 Glucose Level 143 H Calcium Level 8.6 Total Bilirubin 0.3 Aspartate Amino Transf (AST/SGOT) 20 Alanine Aminotransferase (ALT/SGPT) 22 Alkaline Phosphatase 91 Troponin I High Sensitivity 6 Pro-B-Type Natriuretic Peptide < 30 Total Protein 7.2 Albumin 3.2 L Globulin 4.0 Albumin/Globulin Ratio 0.8 L Lipase 52 Chemistry Comments Medical Decision Making Additional information obtaine: old records Findings Patient presents to the emergency room with epigastric pain as per HPI. Differentials include but are not limited to gastritis, cholecystitis pancreatitis diverticulitis therefore emergent labs and imaging indicated. Labs and imaging reassuring. As patient has stopped his Protonix suddenly at one- week ago I believe he is suffering from rebound reflux and we will change him to Pepcid. Heart Score: 1 Differential Dx:Considerations: Include: angina, aortic dissection, chest wall pain, cholelithiasis, CHF, costochondritis, esophageal reflux/spasm, gastritis, herpes zoster, myocardial infarction, pericarditis, pleuritis, pancreatitis, pneumonia, pneumothorax, pulmonary embolus, other Departure Disposition: 01 HOME / SELF CARE / HOMELESS Impression: Primary Impression: Epigastric pain Condition: Stable Discharge Instructions: Abdominal Pain, Adult Referrals: NO PRIMARY CARE PROVIDER (PCP) Prescriptions Famotidine (Pepcid) 20 Mg Tablet 1 TAB PO Q12H for 30 Days, #60 TAB 0 Refills Prov: ZEESHAN ACEVEDO MD 07/29/25 Signature Scribe Signature: No scribe Attestation: The note accurately reflects work and decisions made by me.Zeeshan Acevedo MD 07/29/25 21:05 ZEESHAN ACEVEDO MD Jul 29, 2025 19:10
--- NOTE | 2025-07-29 19:12 | ELECTROCARDIOGRAPH REPORT ---
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 Reg Hoover Measurements Intervals [place] Rate: 85 P: 33 AR: 140 QRS: 46 QRSD: 100 T: 34 QT: 407 QTc: 484 Interpretive Statements Sinus rhythm Consider anterior infarct Electronically Signed On 07-30-2025 6:59:[address] Reg Hoover Please click the below link to view image of tracing.
[2025-07-29 19:30] VITALS: TEMP 98.4
[2025-07-29 19:46] LABS: MEAN PLATELET VOLUME 7.0 FL (7.4-10.4); RED CELL DISTRIBUTION WIDTH 15.1 % (11.5-14.5)
--- NOTE | 2025-07-29 19:56 | RADIOLOGY REPORT ---
EXAM: DI CHEST,SINGLE VIEW HISTORY: CP TECHNIQUE: 1 view of the chest COMPARISON: DI CHEST,SINGLE VIEW on DOS: 05/16/25 FINDINGS/IMPRESSION: LUNGS: No pleural effusion, consolidation, or pneumothorax. MEDIASTINUM: Unremarkable. BONES: No acute osseous abnormality. OTHER: None.
[2025-07-29 20:08] LABS: CREATININE 1.16 MG/DL (0.60-1.10); TOTAL CARBON DIOXIDE 21.9 MMOL/L (24-32); eCRCL 95 ML/MIN; eGFR 69 ML/MIN
[2025-07-29 20:15] LABS: PRO BRAIN NATRIURETIC PEPTIDE < 30 PG/ML (0-125)
[2025-07-29] MEDS: famotidine/PF 10 mg/ml inj IV ONE (20:17)
--- NOTE | 2025-07-29 20:45 | RADIOLOGY REPORT ---
EXAM: CT CT ABDOMEN PELVIS HISTORY: Epigastric pain TECHNIQUE: Volumetric multidetector CT images of the abdomen and pelvis were obtained after the administration of intravenous contrast. All CT scans at this facility use dose modulation, iterative reconstruction, and/or weight based dosing when appropriate to reduce radiation dose to as low as reasonably achievable. COMPARISON: CT CT ABDOMEN PELVIS on DOS: 06/26/25 FINDINGS: [LOWER CHEST]: The partially visualized lung bases are clear without a pleural effusion. [LIVER]: Normal hepatic size without suspicious focal lesion. [GALLBLADDER AND BILIARY TREE]: No cholelithiasis. [SPLEEN]: Unremarkable. [PANCREAS]: Unremarkable. [ADRENAL GLANDS]: Unremarkable [KIDNEYS]: No hydronephrosis. No nephroureterolithiasis. [BLADDER]: Unremarkable for the degree distention. [REPRODUCTIVE ORGANS]: Unremarkable. [BOWEL/MESENTERY]: Stomach is normal. No CT evidence of bowel obstruction. [ASCITES]: Absent [LYMPHADENOPATHY]: No pathologically enlarged lymph nodes by CT size criteria [VASCULATURE]: No aneurysmal dilatation. [ABDOMINAL WALL]: Unremarkable. [MUSCULOSKELETAL]: No acute fracture or aggressive focal osseous lesion. IMPRESSION: 1. No CT evidence of an acute abdominal/pelvic process.
--- NOTE | 2025-07-29 20:50 | RADIOLOGY REPORT ---
INDICATION: suspected cholecystitis TECHNIQUE: Multiple real-time sonographic images of the abdomen with attention of the right upper quadrant were obtained. COMPARISON: CT CT ABDOMEN PELVIS on DOS: 07/29/25, CT CT ABDOMEN PELVIS on DOS: 06/26/25, CT CT ABDOMEN PELVIS on DOS: 01/16/25, CT CHEST ABDOMEN PELVIS on DOS: 12/26/22 FINDINGS: There is increase in hepatic echogenicity. The liver is enlarged, measuring 21.27 cm. No liver lesions. The main portal vein is patent and demonstrates hepatopetal flow. No intrahepatic biliary ductal dilatation is noted. The gallbladder is not visualized due to patient's body habitus and poor acoustic window. The common duct measures 5.7 mm and is unremarkable. The right kidney measures 12.1 cm. No hydronephrosis. The pancreas is not well visualized due to obscuration from bowel gas. IMPRESSION: Hepatomegaly and hepatic steatosis. The gallbladder is not visualized due to patient body habitus and poor acoustic window.
[2025-07-29] MEDS ORDERED: FAMO-128 PO (21:05)
[2025-07-29 21:17] VITALS: BP 132/86; PULSE 80; RESP 16; O2SAT 97
== END 2025-07-29 21:19 | disposition home or self-care (01) ==
LOC: ER 18:53
DX: R10.13 Epigastric pain (principal); E11.22 Type 2 diabetes mellitus with diabetic chronic kidney disease; N18.9 Chronic kidney disease, unspecified; E03.9 Hypothyroidism, unspecified; G47.30 Sleep apnea, unspecified; F41.9 Anxiety disorder, unspecified; F32.A Depression, unspecified; K21.9 Gastro-esophageal reflux disease without esophagitis; Z79.85 Long-term (current) use of injectable non-insulin antidiabetic drugs; Z86.718 Personal history of other venous thrombosis and embolism; Z87.440 Personal history of urinary (tract) infections; Z88.2 Allergy status to sulfonamides; Z88.6 Allergy status to analgesic agent; Z88.8 Allergy status to other drugs, medicaments and biological substances; Z79.899 Other long term (current) drug therapy
CPT/HCPCS: 36415; 71045; 74176; 76700; 80053; 83690; 83880; 84484; 85025; 93005; 96374; 99285; J3490